=== PATIENT | male | born 1970 | race Caucasian/White ===

== ENCOUNTER 2023-07-14 14:28 | Outpatient (REF) | payer OTHER, SELFPAY ==
--- NOTE | 2023-07-14 14:39 | EMG_ITS ---
Chief complaint: Allodynia, pain and numbness in right hand particularly on right first to 4 digits. This started after an IV was inserted on right wrist last February. Recent hospitalization for cardiac surgery, February 2023. History of cervical surgery 4 years ago. Denies any current associated neck pain. Reason for referral: Evaluate for neuropathy Referred by: Dr. Lira Procedure done: RUE NCS/EMG Precautions and/or limitations: None The limb temperature was monitored continuously and remained between 32-36 degrees C during the performance of the NCS. Nerve Conduction Studies Anti Sensory Summary Table ?Stim Site NR Onset (ms) Norm Onset (ms) Peak (ms) Norm Peak (ms) O-P Amp (?V) Norm O-P Amp Site1 Site2 Delta-0 (ms) Dist (cm) Dereck (m/s) Norm Dereck (m/s) Right Median Anti Sensory (2nd Digit) Wrist ? 3.1 3.8 <3.6 2.0 >10 Wrist 2nd Digit 3.1 14.0 45 Right Radial Anti Sensory (Thumb) Forearm ? 1.5 2.0 <3.1 11.7 Forearm Thumb 1.5 0.0 Right Ulnar Anti Sensory (5th Digit) Wrist ? 2.5 3.1 <3.7 15.1 >15.0 Wrist 5th Digit 2.5 14.0 56 Motor Summary Table ?Stim Site NR Onset (ms) Norm Onset (ms) O-P Amp (mV) Norm O-P Amp iAmp (mV) Amp (1st) (%) Site1 Site2 Delta-0 (ms) Dist (cm) Dereck (m/s) Norm Dereck (m/s) Right Median Motor (Abd Poll Brev) Wrist ? 4.4 <3.9 11.5 >4.5 13.3 100.0 Elbow Wrist 4.4 20.5 47 >45 Elbow ? 8.8 11.3 13.4 98.3 Right Ulnar Motor (Abd Dig Minimi) Wrist ? 2.9 <3.0 9.6 >5 11.9 100.0 B Elbow Wrist 3.4 18.5 54 >45 B Elbow ? 6.3 9.0 11.1 93.8 A Elbow B Elbow 1.4 10.0 71 >45 A Elbow ? 7.7 8.7 10.9 90.6 EMG ?Side Muscle Nerve Root Ins Act Fibs Psw Amp Dur Poly Recrt Int Pat Comment Right 1stDorInt Ulnar C8-T1 Nml Nml Nml Nml Nml 0 Nml Complete Right FlexCarRad Median C6-7 Nml Nml Nml Nml Nml 0 Nml Complete Right Biceps Musculocut C5-6 Nml Nml Nml Nml Nml 0 Nml Complete Right Triceps Radial C6-7-8 Nml Nml Nml Nml Nml 0 Nml Complete Right Deltoid Axillary C5-6 Nml Nml Nml Nml Nml 0 Nml Complete Right Abd Poll Brev Median C8-T1 Nml Nml Nml Nml Nml 0 Nml Complete FINDINGS: Right median motor nerve showed prolonged distal latency, normal amplitude and normal conduction velocity. Right median sensory nerve showed prolonged peak latency and small amplitude. All other nerves tested were within normal. Concentric needle EMG was performed in selected muscles of the right upper extremity. Study did not reveal signs of electric abnormalities as shown in the table below. IMPRESSION: 1. This is an abnormal study. 2. There is electrodiagnostic evidence for right moderate-severe median neuropathy at the wrist, consistent with carpal tunnel syndrome. 3. There is no electrodiagnostic evidence for ulnar neuropathy, brachial plexopathy, or cervical radiculopathy. Thank you for your kind referral. Naila Ureña MD, DONI Board Certified, [place] [employer] and [employer] (ABPMR) Board Certified, [place] Board [employer] Electrodiagnostic Medicine (ABEM) CODIN [id number] MTDD
== END 2023-07-14 14:29 | disposition home or self-care (01) ==
LOC: HO.NEURO 14:28
PROVIDERS: PCP Internal Medicine; Visit Provider Orthopaedic Surgery
DX: S54.1 Injury of median nerve at forearm level (principal); G56.41 Causalgia of right upper limb
CPT/HCPCS: 95886; 95909

== ENCOUNTER → 2023-07-14 14:39 | Outpatient (BNV) | payer OTHER, SELFPAY | PROVIDERS: PCP Internal Medicine; Visit Provider Physical Medicine & Rehabilitation | DX: G56.11 Other lesions of median nerve, right upper limb (principal); G56.01 Carpal tunnel syndrome, right upper limb | CPT/HCPCS: 95886; 95909 ==

== ENCOUNTER 2024-09-07 10:56 | Emergency (ER) | payer OTHER, SELFPAY ==
--- NOTE | ~2024-09-07 | XR_ITS ---
EXAMINATION: XR HAND/WRIST, RIGHT CLINICAL INFORMATION: pointer and middle finger laceration. fracture? COMPARISON: None available. TECHNIQUE: PA, lateral, and oblique views of the right hand and wrist. FINDINGS: No acute cortical disruption or malalignment. No lytic or blastic lesions. No metallic or radiopaque foreign body. XR/XR hand wrist RT IMPRESSION: No acute fracture or dislocation. Electronically signed by: Nemesio Dean MD 09/07/2024 11:49 AM THADDEUS
[2024-09-07 10:58] VITALS: BP 161/87; PULSE 74; RESP 20; TEMP 36.7; O2SAT 98; BMI 34.9
--- NOTE | 2024-09-07 11:03 | ED_ITS ---
HPI - General Adult General Chief complaint: Wound/Laceration Stated complaint: R hand lac Time Seen by Provider: 09/07/24 11:40 Source: patient, RN notes reviewed and old records reviewed Mode of arrival: ambulatory Limitations: no limitations History of Present Illness ED Provider: Stacey HPI narrative: 53-year-old male with history of coronary artery disease status post bypass presents for evaluation of a right hand injury. 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 he reports his tetanus was updated 3 weeks ago he was on clopidogrel for the coronary artery disease but no anticoagulation Related Data Allergies Allergy/AdvReac Type Severity Reaction Status Date / Time azithromycin [From ZITHROMAX] Allergy Unknown RESP Verified 09/07/24 11:01 DISTRESS codeine [CODEINE] Allergy Unknown RESP Verified 09/07/24 11:01 DISTRESS diazepam [From VALIUM] Allergy Unknown SEVERE Verified 09/07/24 11:01 AGITATION bee pollen [bee stings] Allergy Anaphylaxis Verified 09/07/24 11:01 codeine Allergy Unknown Unknown Uncoded 09/07/24 11:01 Review of Systems Constitutional: Constitutional: Denies body ache(s), Denies chills and Denies fever(s) Cardiovascular: Cardiovascular: Denies chest pain Musculoskeletal: Musculoskeletal: Denies arthralgias and Denies joint swelling Integumentary/Breasts: Skin/Breast: Reports wounds PMFSH Social History Social History Advance Directives: No Advance Directives Information Provided: Yes Do you have a plan to hurt others: No Plan Physical Exam ED Vital Signs: Vital Signs - 24 hr 09/07/24 10:58 09/07/24 12:25 Temperature 98.0 F 97.5 F Pulse Rate 74 64 Respiratory Rate 20 16 Blood Pressure 161/87 H 146/88 H Pulse Oximetry 98 97 Oxygen Delivery Method Room Air Room Air BMI result Body Mass Index 34.9 Const General: healthy appearing, comfortable, no acute distress, alert and awake Nutritional Appearance: well nourished Orientation/consciousness: patient oriented x3 HENMT Head: Yes normocephalic and Yes atraumatic Resp Effort & Inspection: normal respiratory effort, able to speak in complete sentences and not labored Skin Other: patient has a 3 cm curvilinear laceration to the dorsal surface of the right 3rd finger in between the D IP and PIP joints. He has a proximally 1 cm laceration to the distal right 2nd finger on the dorsal surface. General skin exam: elasticity normal Neuro General: patient oriented x3 Cranial nerves: Yes Bilaterally intact EOM present Cognition (Neuro): normal cognition Extrem Other: Moving all extremities well without any obvious deformities Course Course Course Narrative: RME: 53 yold male presents to the ED for right pointer adn 3rd finger laceration caused by steel in garage. hand is wrapped. xray rodered Medications Administered Discontinued Medications Generic Name Dose Route Start Last Admin Trade Name Freq PRN Reason Stop Dose Admin Lidocaine HCl 10 ml 09/07/24 12:01 09/07/24 12:22 Lidocaine Hcl 1 % Mpf 5 Ml Vial INFILTRATI 09/07/24 12:02 10 ml ONCE ONE Administration Procedures Laceration Laceration 1: Site: hand Side (If applicable): right ( 3rd finger) Size (cm): 3 Description: linear and irregular Depth: simple, single layer Local Anesthetic: lidocaine 1% Amount of anesthesia used (mL): 4 Pre-repair: wound explored, irrigated extensively and deep structures intact Skin layer closed with: nylon Size (cm): 4-0 Number of sutures: 6 Technique: simple, interrupted Medical Decision Making Medical Decision Making MDM Narrative: 53-year-old male presents for evaluation of laceration to his right hand. He has wounds to the right 2nd and 3rd finger that require repair. X-ray was ordered which does not show any evidence of open fracture. There is no evidence of tendon injury on clinical exam. Patient's tetanus is up-to-date. We will clean and close the wounds, see procedure note. wound repair was performed by Alex Key patient requested the smaller wound on the index finger be closed with Dermabond adhesive Differential Diagnosis Differential Diagnoses: The differential diagnosis associated with the presentation includes laceration Skin tear Puncture wound Open fracture Independent Interpretation I performed an independent interpretation of an: Plain X-Ray ( no obvious fracture of the right hand or wrist) Discharge Plan Discharge Clinical Impression: Laceration Patient Disposition: Home, Self-Care Instructions: Finger Laceration (ED) Additional Instructions: you had 6 sutures placed today. These can be removed in 14 days keep the area clean and dry follow up with your primary doctor Print Language: Andorran
[2024-09-07] MEDS: Lidocaine HCl 1 % MPF 5 ML VIAL 10 ML INFILTRATI (12:22)
[2024-09-07 12:25] VITALS: BP 146/88; PULSE 64; RESP 16; TEMP 36.4; O2SAT 97
--- OUTSIDE RECORDS SUMMARY | 2024-09-08 14:43 | XMS_ITS | Continuity of Care Document ---
Author Organization [facility] Address [address] [place] [address] [place] [address]- Care Team Providers Care Naval Architect Name Role Phone Not on Staff, PCP Primary Care Physician Unavail able [facility]counter [facility] Date([facility]): 04/07/23 - 05/07/23 [facility] Card[facility] Surgery [address] [place] [id number] Attending Physician: AdmRamu paz Admitting Physician: Admtr, Ar8 Referring Physician: Admtr, Ar8 Allergies, Adverse Reactions, Alerts Substance Reaction Severity Status codeine wheezing Active Zithromax Wheezing swelling Active Valium violent Active Bee Stings Anaphylaxis Active Adhesive Bandage 1 Cardiac electrode si te Soft tissue swelling Plastic adhesive tape Active 1plastic tape Immunizations Given and Recorded Vaccine Date Status Refusal Reason Pneumococcal Vaccine (oldterm) 1 12/09/08 Given 1Result Comment: lot #[id number] exp date 14 mar 2010 Medications acetaminophen 325 mg oral tablet 650 mg, 2, tablet, By Mouth, Every 6 hours, Refills 0, Maintenance, 03/26/23 15:53:00 EDT, Partial fill upon patient request if the prescription is for a schedule II opioid drug. Start Date: 03/26/23 Status: Ordered amiodarone 200 mg oral tablet 200 mg, By Mouth, 2 times a day, # 60 tablet, Refills 0, Tot. Refills 0, Maintenance, 03/26/23 15:53:00 EDT, Route to Pharmacy Electronically, [facility], Partial fill upon patient request if the prescription is for a schedule II opioid... Start Date: 03/26/23 Status: Ordered aspirin 81 mg oral tablet, chewable 81 mg, 1, tablet, By Mouth, Daily, # 30 tablet, Refills 0, Maintenance, 03/02/23 8:09:00 EDT, Partial fill upon patient request if the prescription is for a schedule II opioid drug. Start Date: 03/02/23 Status: Ordered atorvastatin 80 mg oral tablet 1 tablet = 80 mg, By Mouth, Daily, Refill per PCP or Extrusion Line Operator, # 30 tablet, 0 Refills, Maintenance, 03/04/23 10:31:00 EDT, Tablet, [facility], Partial fill upon patient request if the prescription is for a schedule II opioid drug., 1... Start Date: 03/04/23 Status: Ordered Benadryl Extra Strength 2%-0.1% topical cream 1 application, Topically, 3 times a day, # 30 Gm, 1 Refills, Maintenance, 04/07/23 11:41:00 EDT, Cream, [facility]/pharmacy #[id number], Partial fill upon patient request if the prescription is for a schedule II opioid drug., 1 application Topically 3 times a day,... Start Date: 04/07/23 Status: Ordered clopidogrel 75 mg oral tablet 75 mg, 1, tablet, By Mouth, Daily, # 30 tablet, Refills 0, Tot. Refills 0, Maintenance, 03/26/23 15:53:00 EDT, Route to Pharmacy Electronically, [facility], Partial fill upon patient request if the prescription is for a schedule II opioi... Start Date: 03/26/23 Status: Ordered furosemide 20 mg oral tablet 20 mg, 1, tablet, By Mouth, Daily, # 3 tablet, Refills 0, Tot. Refills 0, Maintenance, 03/26/23 15:54:00 EDT, Route to Pharmacy Electronically, [facility], Partial fill upon patient request if the prescription is for a schedule II opioid... Start Date: 03/26/23 Stop Date: 03/29/23 Status: Ordered gabapentin 100 mg oral capsule 200 mg, 2, capsule, By Mouth, 3 times a day, # 180 capsule, Refills 0, Tot. Refills 0, Maintenance,04/22/23 16:38:00 EDT, [id number] Partial fill upon patient request if the prescription is for a schedule II... Start Date: 04/22/23 Status: Ordered labs labs, See Instructions, # 1 each, Refills 0, Tot. Refills 0, Maintenance, CBC and BMP, 03/26/23 16:13:00 EDT, Supply Start Date: 03/26/23 Status: Ordered metoprolol 25 mg oral tablet 25 mg, 1, tablet, By Mouth, 2 times a day, Refill per PCP or Extrusion Line Operator, # 60 tablet, Refills 0, Tot. Refills 0, Maintenance, 03/26/23 15:53:00 EDT, Route to Pharmacy Electronically, [facility], Partial fill upon patient request if the... Start Date: 03/26/23 Status: Ordered tamsulosin 0.4 mg oral capsule 0.4 mg, 1, capsule, By Mouth, Daily, # 90 capsule, Refills 0, Maintenance, 02/04/23 8:43:00 EDT, Partial fill upon patient request if the prescription is for a schedule II opioid drug. Start Date: 02/04/23 Status: Ordered Ventolin HFA 108 mcg/inh inhalation aerosol with adapter INHALE 2 PUFFS INTO THE LUNGS EVERY 4 HOURS NEEDED FOR COUGH OR WHEEZING. Start Date: 03/02/23 Status: Ordered Walker See Instructions, Maintenance, 03/26/23 16:04:00 EDT, Supply Start Date: 03/26/23 Status: Ordered Walker See Instructions, # 1 each, Maintenance, walker, 03/26/23 16:04:00 EDT, Supply Start Date: 03/26/23 Status: Ordered Problem List Condition Confirmation Course Effective Dates Status [facility] Informant Acquired deafness of left ear Confirmed Active Chest pain Confirmed Active DVT, lower extremity Confirmed Active GERD (gastroesophageal reflux disease) Confirmed Active History of CVA (cerebrovascular accident) without residual deficits Confirmed Active Hx of Lyme disease Confirmed Active Obese class I Confirmed Active Paresthesias Confirmed Active Tobacco dependence Confirmed Active Social History Social History Type Response Smoking Status 5-9 cigarettes (betw een 1/4 to 1/2 pack)/day in last 30 days; Other: 8-9; entered on: 08/08/20 Sex Patient Care team information Care Team Personnel Name: Fiona Sanchez RN Position: S RN Member Role: Primary Care Nurse Name: Ene Horan RN Position: [facility] Supv Member Role: Primary Care Nurse Name: Bienvenido Herrmann RN Position: [facility] RN Member Role: Primary Care Nurse Name: Louisa Hyman RN Position: [facility] RN Supv Member Role: Primary Care Nurse Name: Cynthia Corbin RN Position: [facility] RN Member Role: Primary Care Nurse Name: Yoshi Bernardo RN Position: [facility] SN RN Member Role: Primary Care Nurse Name: Not on Staff, PCP Position: [facility] Physician (General Medicine) Member Role: PCP Name: Alon Castillo RN Position: [facility] RN Member Role: Primary Care Nurse Name: Mercedes Jasmine RN Position: [facility] RN Member Role: Primary Care Nurse Name: Charlene Davenport RN Position: [facility] RN Member Role: Primary Care Nurse Name: Angela Arreguin RN Position: [facility] RN Member Role: Primary Care Nurse Name: Irlanda Hernandez RN Position: [facility] RN Member Role: Primary Care Nurse Care Team Related Persons Name: SAM AIKEN Address: [address] [place] [address] Name: SAM KANG Address: [address] [place] [address]
--- OUTSIDE RECORDS SUMMARY | 2024-09-08 14:43 | XMS_ITS | Continuity of Care Document ---
Author Organization [facility] Address [address] [place] [address] Yvonne guti[address] [address]- Care Team Providers Care Psychology Associate Name Role Phone Not on Staff, PCP Primary Care Physician Unavail able [facility] Date[facility]s): 05/03/23 - 06/02/23 [facility] Cardiac Surgery [address] [place] [id number] Allergies, Adverse Reactions, Alerts Substance Reaction Severity Status codeine wheezing Active Valium violent Active Adhesive Bandage 1 Cardiac electrode si te Soft tissue swelling Plastic adhesive tape Active Bee Stings Anaphylaxis Active Zithromax Wheezing swelling Active 1plastic tape Immunizations Given and Recorded [...] 03/26/23 15:53:00 EDT, Route to Pharmacy Electronically, [facility], Partial fill upon patient request [...] By Mouth, Daily, Refill per PCP or Care Team Assistant, # 30 tablet, 0 Refills, Maintenance, 03/04/23 10:31:00 EDT, Tablet, [facility], Partial fill upon patient request if the prescription is for a schedule II opioid drug., 1... Start Date: 03/04/23 Status: Ordered Benadryl Extra Strength 2%-0.1% topical cream 1 application, Topically, 3 times a day, # 30 Gm, 1 Refills, Maintenance, 04/07/23 11:41:00 EDT, Cream, [facility]/pharmacy #[id number], Partial fill upon patient request if the prescription is for a schedule II opioid drug., 1 application Topically 3 times a day,... Start Date: 04/07/23 Status: Ordered buPROPion 150 mg/12 hours (SR) oral tablet, extended release 1 tablet = 150 mg, By Mouth, 2 times a day, for smoking cessation. Take only once per day for first3 days. Quit on day 8. Use at least 3 months. Use with nicotine inhaler., # 60 tablet, 5 Refills, Maintenance, 05/21/23 14:22:00 EDT, ER Tablet, [facility]/... Start Date: 05/21/23 Status: Ordered clopidogrel 75 mg oral tablet 75 mg, 1, tablet, By Mouth, Daily, # 30 tablet, Refills 0, Tot. Refills 0, Maintenance, 03/26/23 15:53:00 EDT, Route to Pharmacy Electronically, [facility], Partial fill upon patient request if the prescription is for a schedule II opioi... Start Date: 03/26/23 Status: Ordered furosemide 20 mg oral tablet 20 mg, 1, tablet, By Mouth, Daily, # 3 tablet, Refills 0, Tot. Refills 0, Maintenance, 03/26/23 15:54:00 EDT, Route to Pharmacy Electronically, [facility], Partial fill upon patient request if the prescription is for a schedule II opioid... Start Date: 03/26/23 Stop Date: 03/29/23 Status: Ordered gabapentin 100 mg oral capsule 200 mg, 2, capsule, By Mouth, 3 times a day, # 180 capsule, Refills 0, Tot. Refills 0, Maintenance,04/22/23 16:38:00 EDT, Route to Pharmacy Electronically, [facility]/pharmacy #[id number], Partial fill upon patient request if the prescription is for a schedule II... Start Date: 04/22/23 Status: Ordered labs labs, See Instructions, # 1 each, Refills 0, Tot. Refills 0, Maintenance, CBC and BMP, 03/26/23 16:13:00 EDT, Supply Start Date: 03/26/23 Status: Ordered metoprolol 25 mg oral tablet 25 mg, 1, tablet, By Mouth, 2 times a day, Refill per PCP or Care Team Assistant, # 60 tablet, Refills 0, Tot. Refills 0, Maintenance, 03/26/23 15:53:00 EDT, Route to Pharmacy Electronically, [facility], Partial fill upon patient request if the... Start Date: 03/26/23 Status: Ordered nicotine 10 mg inhalation device See Instructions, use in addition to bupropion, # 168 pack/packet, 3 Refills, Maintenance, 05/21/2314:23:00 EDT, [facility]/pharmacy #[id number], Partial fill upon patient request if the prescription is for a schedule II opioid drug., use in addition to bupropion... Start Date: 05/21/23 Status: Ordered tamsulosin 0.4 mg oral capsule [...] List Condition Confirmation Course Effective Dates Status [facility] Informant Acquired deafness of left [...] Team Personnel Name: Fiona Sanchez RN Position: [facility] RN Member Role: Primary Care Nurse Name: Ene Horan RN Position: [facility] RN Supv Member Role: Primary Care Nurse Name: Bienvenido Herrmann RN Position: [facility] RN Member Role: Primary Care Nurse Name: Louisa Hmyan RN Position: [facility] RN Supv Member Role: Primary Care Nurse Name: Yoshi Bernardo RN Position: [facility] SN RN Member Role: Primary Care Nurse Name: Not on Staff, PCP Position: [facility] Physician (General Medicine) Member Role: PCP Name: Alon Castillo RN Position: [facility] RN Member Role: Primary Care Nurse Name: Mercedes Jasmine RN Position: [facility] RN Member Role: Primary Care Nurse Name: Charlene Davenport RN Position: [facility] RN Member Role: Primary Care Nurse Name: Angela Arreguin RN Position: [facility] RN Member Role: Primary Care Nurse Name: Irlanda Hernandez RN Position: [facility] RN Member Role: Primary Care Nurse Care Team Related Persons Name: SAM AIKEN Address: [address] [place] [address] Name: SAM KANG Address: [address] [place] [address]
--- OUTSIDE RECORDS SUMMARY | 2024-09-08 14:43 | XMS_ITS | Continuity of Care Document ---
Author Organization [facility] Address [address] [place] [address] Yvonne gutiér[place] [address]- Care Team Providers Care Payroll Representative Name Role Phone Not on Staff, PCP Primary Care Physician Unavail able [facility]counter [facility] Date(s): 03/03/23 - 04/02/23 [facility] [address] [place] [id number] Allergies, Adverse Reactions, Alerts Substance Reaction Severity Status codeine wheezing Active Zithromax Wheezing swelling Active Valium violent Active Adhesive Bandage 1 Cardiac electrode si te Soft tissue swelling Plastic adhesive tape Active Bee Stings Anaphylaxis Active 1plastic tape Immunizations Given and Recorded [...] 03/26/23 15:53:00 EDT, Route to Pharmacy Electronically, [facility], Partial fill upon patient request [...] By Mouth, Daily, Refill per PCP or Asian Studies Professor, # 30 tablet, 0 Refills, Maintenance, 03/04/23 10:31:00 EDT, Tablet, [facility], Partial fill upon patient request if the prescription is for a schedule II opioid drug., 1... Start Date: 03/04/23 Status: Ordered clopidogrel 75 mg oral tablet 75 mg, 1, tablet, By Mouth, Daily, # 30 tablet, Refills 0, Tot. Refills 0, Maintenance, 03/26/23 15:53:00 EDT, Route to Pharmacy Electronically, [facility], Partial fill upon patient request if the prescription is for a schedule II opioi... Start Date: 03/26/23 Status: Ordered furosemide 20 mg oral tablet 20 mg, 1, tablet, By Mouth, Daily, # 3 tablet, Refills 0, Tot. Refills 0, Maintenance, 03/26/23 15:54:00 EDT, Route to Pharmacy Electronically, [facility], Partial fill upon patient request if the prescription is for a schedule II opioid... Start Date: 03/26/23 Stop Date: 03/29/23 Status: Ordered hydrOXYzine hydrochloride 10 mg oral tablet 2 tablet = 20 mg, By Mouth, 2 times a day, PRN Anxiety, # 14 tablet, 0 Refills, Acute 04/09/23 21:00:00 EDT, 03/26/23 15:55:00 EDT, Tablet, [facility], Partial fill upon patient requestif the prescription is for a schedule II opioid [place]... Start Date: 03/26/23 Stop Date: 04/09/23 Status: Ordered labs labs, See Instructions, # 1 each, Refills 0, Tot. Refills 0, Maintenance, CBC and BMP, 03/26/23 16:13:00 EDT, Supply Start Date: 03/26/23 Status: Ordered metoprolol 25 mg oral tablet 25 mg, 1, tablet, By Mouth, 2 times a day, Refill per PCP or Asian Studies Professor, # 60 tablet, Refills 0, Tot. Refills 0, Maintenance, 03/26/23 15:53:00 EDT, Route to Pharmacy Electronically, [facility], Partial fill upon patient request if the... Start Date: 03/26/23 Status: Ordered MiraLax oral powder for reconstitution = 17 Gm, By Mouth, Daily, PRN Constipation, dissolve in water before taking, # 255 Gm, 0 Refills, Acute 04/04/23 22:22:00 EDT, 03/04/23 10:31:00 EDT, REC Powder, [facility], Partial fill upon patient request if the prescription is for a... Start Date: 03/04/23 Stop Date: 04/04/23 Status: Ordered tamsulosin 0.4 mg oral capsule [...] RN Member Role: Primary Care Nurse Name: Marline CABRERA, Ene Position: [facility] Supv Member Role: Primary Care Nurse Name: Bienvenido Herrmann RN Position: S RN Member Role: Primary Care Nurse Name: Louisa Hyman RN Position: [facility] RN Supv Member Role: Primary Care Nurse Name: Cynthia Corbin RN Position: [facility] RN Member Role: Primary Care Nurse Name: Yoshi Bernardo RN Position: [facility] SN RN Member Role: Primary Care Nurse Name: Not on Staff, PCP Position: [facility] Physician (General Medicine) Member Role: PCP Name: Alon Castillo RN Position: [facility] RN Member Role: Primary Care Nurse Name: Mercedes Jasmine RN Position: [facility] RN Member Role: Primary Care Nurse Name: Charlene Davenport RN Position: [facility] RN Member Role: Primary Care Nurse Name: Angela Arreguin RN Position: [facility] RN Member Role: Primary Care Nurse Name: Irlanda Hernandez RN Position: [facility] RN Member Role: Primary Care Nurse Name: Radha Kessler Position: [facility] RN Member Role: Primary Care Nurse Care Team Related Persons Name: SAM AIKEN Address: [address] [place] [address] Name: SAM KANG Address: [address] [place] [address]
--- OUTSIDE RECORDS SUMMARY | 2024-09-08 14:43 | XMS_ITS | Continuity of Care Document ---
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 Name Role Phone Not on Staff, PCP Primary Care Physician Unavail able [facility] Date(s): 04/21/23 - 05/21/23 [facility] [address] [place] [id number] Allergies, Adverse Reactions, Alerts Substance [...] 03/26/23 15:53:00 EDT, Route to Pharmacy Electronically, [facility], Partial fill upon [...] By Mouth, Daily, Refill per PCP or Rotary Lithographic Press Operator, # 30 tablet, 0 Refills, Maintenance, 03/04/23 10:31:00 EDT, Tablet, [facility], Partial fill upon patient request if the prescription is for a schedule II opioid drug., 1... Start Date: 03/04/23 Status: Ordered Benadryl Extra Strength 2%-0.1% topical cream 1 application, Topically, 3 times a day, # 30 Gm, 1 Refills, Maintenance, 04/07/23 11:41:00 EDT, Cream, [id number], Partial fill upon patient request if [...] Refills, Maintenance, 05/21/23 14:22:00 EDT, ER Tablet, [facility]/... Start Date: 05/21/23 Status: Ordered clopidogrel 75 mg oral tablet 75 mg, 1, tablet, By Mouth, Daily, # 30 tablet, Refills 0, Tot. Refills 0, Maintenance, 03/26/23 15:53:00 EDT, Route to Pharmacy Electronically, [facility], Partial fill upon patient request if the prescription is for a schedule II opioi... Start Date: 03/26/23 Status: Ordered furosemide 20 mg oral tablet 20 mg, 1, tablet, By Mouth, Daily, # 3 tablet, Refills 0, Tot. Refills 0, Maintenance, 03/26/23 15:54:00 EDT, Route to Pharmacy Electronically, [facility], Partial fill upon patient request if the prescription is for a schedule II opioid... Start Date: 03/26/23 Stop Date: 03/29/23 Status: Ordered gabapentin 100 mg oral capsule 200 mg, 2, capsule, By Mouth, 3 times a day, # 180 capsule, Refills 0, Tot. Refills 0, Maintenance,04/22/23 16:38:00 EDT, Route to Pharmacy Electronically, [id number], Partial fill upon patient request if the prescription is for a schedule II... Start Date: 04/22/23 Status: Ordered labs labs, See Instructions, # 1 each, Refills 0, Tot. Refills 0, Maintenance, CBC and BMP, 03/26/23 16:13:00 EDT, Supply Start Date: 03/26/23 Status: Ordered metoprolol 25 mg oral tablet 25 mg, 1, tablet, By Mouth, 2 times a day, Refill per PCP or Rotary Lithographic Press Operator, # 60 tablet, Refills 0, Tot. Refills 0, Maintenance, 03/26/23 15:53:00 EDT, Route to Pharmacy Electronically, [facility], Partial fill upon patient request if the... Start Date: 03/26/23 Status: Ordered nicotine 10 mg inhalation device See Instructions, use in addition to bupropion, # 168 pack/packet, 3 Refills, Maintenance, 05/21/2314:23:00 EDT, [facility][id number], Partial fill upon patient request if [...] List Condition Confirmation Course Effective Dates Status [facility] Informant Acquired deafness of left [...] Team Personnel Name: Fiona Sanchez RN Position: [facility] RN Member Role: Primary Care Nurse Name: Ene Horan RN Position: [facility] RN Supv Member Role: Primary Care Nurse Name: Bienvenido Herrmann RN Position: [facility] RN Member Role: Primary Care Nurse Name: Louisa Hyman RN Position: [facility] RN Supv Member Role: Primary Care Nurse Name: Yoshi Bernardo RN Position: [facility] SN RN Member Role: Primary Care Nurse Name: Not on Staff, PCP Position: [facility] Physician (General Medicine) Member Role: PCP Name: Alon Castillo RN Position: [facility] RN Member Role: Primary Care Nurse Name: Mercedes Jasmine RN Position: [facility] RN Member Role: Primary Care Nurse Name: Charlene Davenport RN Position: [facility] RN Member Role: Primary Care Nurse Name: Angela Arreguin RN Position: [facility] RN Member Role: Primary Care Nurse Name: Irlanda Hernandez RN Position: [facility] RN Member Role: Primary Care Nurse Care Team Related Persons Name: SAM AIKEN Address: [address] [place] [address] Name: SAM KANG Address: [address] [place] [address]
--- OUTSIDE RECORDS SUMMARY | 2024-09-08 14:43 | XMS_ITS | Continuity of Care Document ---
Author Organization [facility] ter Address [address] [place] [address]- Care Team Providers Care Video Game Technician Name Role Phone Salome Parker MD Primary Care Physician [phone] Encounter [facility] Date(s): 11/29/19 - 11/30/[address] [address]- [facility] Encounter Diagnosis Musculoskeletal chest pain(Discharge Diagnosis) - 11/30/19 Discharge Disposition: A-D/C Home Attending Physician: Juan Benjamin MD Admitting Physician: Yoli Kovacs MD Referring Physician: Not on Staff, Referring MD Allergies, Adverse Reactions, Alerts Substance Reaction Severity Status codeine wheezing Active Zithromax swelling Active Valium violent Active Bee Stings Active Immunizations Given and Recorded Vaccine Date Status Refusal Reason Pneumococcal Vaccine (oldterm) 1 12/09/08 Given 1Result Comment: lot #[id number] exp date 14 mar 2010 Medications No Known Medications Problem List Condition Effective Dates Status Health Status Inform ant Paresthesias(Confirmed) Active Diagnosis Diagnosis Type Effective Dates Health Status Clinical Service Informant Musculoskeletal chest pain Discharge Diagnosis 11/30/19 Non-Specified Results Radiology Reports * Exam Date Time Procedure Performing Provider Status 11/29/19 11:39 AM Chest 2 Views Frontal and Lat Papadak is , Neelam; Auth (Verified) Notes: (Chest 2 Views Frontal and Lat) Reason For Exam: Angina RESULT: Chest 2 Views Frontal and Lat Chest 2 Views Frontal and Lat INDICATION: Substernal chest pain and fevers. COMPARISON: Multiple priors, most recent 08/24/2011. FINDINGS: LINES AND TUBES: Right chest Port-A-Cath with tip in the mid SVC. LUNGS AND PLEURA: Clear lungs. Normal pulmonary vascularity. No pleural effusion. No pneumothorax. HEART, MEDIASTINUM AND MUNA: Heart is normal in size. Normal mediastinal and hilar contour. BONES AND SOFT TISSUES: No acute osseous abnormality. Mild degenerative changes of the visualized spine. ACDF of the lower cervical spine. IMPRESSION: No radiographic evidence of acute cardiopulmonary abnormality. I have personally reviewed the images and I agree with this report. WSN: [id number] Dictated By: Christian Davis MD Dictated Date/Time: 11/29/19 11:58 a Reviewed By: Alex Singh MD Signed By: Alex Singh MD Signed Date/Time: 11/29/19 12:03 pm Transcribed By: KRIS Transcribed Date/Time: 11/29/19 11:48 am Vital Signs Most recent to oldest [Reference Range]: 1 2 3 Height 172.2 cm (11/30/19 3:10 AM) 172.2 cm (11/29/19 11:34 PM) 172.2 cm (11/29/19 8:46 PM) Weight 94.8 kg (11/29/19 8:46 PM) 94.8 kg (11/29/19 8:08 PM) Oxygen Saturation [94-100 %] 95 % (11/30/19 3:10 AM) 97 % (11/29/19 11:34 PM) 96 % (11/29/19 8:46 PM) Pulse Rate [55-90 bpm] 76 bpm (11/30/19 3:10 AM) 70 bpm (11/29/19 11:34 PM) 60 bpm (11/29/19 8:46 PM) Body Mass Index [18.5-24.99] 31.97 *>HHI* (11/29/19 8:08 PM) Blood Pressure [90-138/55-84 mm Hg] 135/69mm Hg (11/30/19 3:10 AM) 120/67mm Hg (11/29/19 11:34 PM) 126/86mm Hg (11/29/19 8:46 PM) Respiratory Rate [16-30 br/min] 18 br/min (11/30/19 3:10 AM) 18 br/min (11/29/19 11:34 PM) 20 br/min (11/29/19 9:46 PM) Temperature [96.8-100.4 DegF] 97.9 DegF (11/30/19 3:10 AM) 98 DegF (11/29/19 11:34 PM) 97.5 DegF (11/29/19 8:46 PM) Mode of Delivery (Oxygen) Room air (11/30/19 3:10 AM) Room air (11/29/19 11:34 PM) Room air (11/29/19 8:46 PM) Blood pressure sites Arm, left (11/30/19 3:10 AM) Arm, left (11/29/19 11:34 PM) Arm, right (11/29/19 8:46 PM) Temperature Route Oral (11/30/19 3:10 AM) Oral (11/29/19 11:34 PM) Oral (11/29/19 8:46 PM) Dry Weight 94.8 kg (11/29/19 8:08 PM) Weight Obtained Via Bed scale (11/29/19 8:46 PM)
--- OUTSIDE RECORDS SUMMARY | 2024-09-08 14:43 | XMS_ITS | Continuity of Care Document ---
Author Organization [facility] ter Address [address] [place] [address]- Care Team Providers Care Tableman Name Role Phone Salome Parker MD Primary Care Physician [phone] Encounter [facility] Date(s): 08/07/20 - 08/08/[address] [address]- [facility] Discharge Disposition: A-D/C Home Attending Physician: Brit Thomas MD Admitting Physician: Trinidad Mccain DO Referring Physician: Not on Staff, Referring MD Allergies, Adverse Reactions, Alerts Substance Reaction Severity Status codeine wheezing Active Zithromax swelling Active Valium violent Active Bee Stings Active Immunizations Given and Recorded Vaccine Date Status Refusal Reason Pneumococcal Vaccine (oldterm) 1 12/09/08 Given 1Result Comment: lot #[id number] exp date 14 mar 2010 Medications EPINEPHrine 0.3 mg injectable solution 0 Refills, Maintenance, 08/07/20 1:15:00 EDT Start Date: 08/07/20 Status: Ordered nicotine 14 mg/24 hr transdermal film, extended release 1 patch, Topically, Daily, for 14 days, # 14 patch, 0 Refills, Acute 08/22/20 15:23:00 EST, 08/08/20 15:23:00 EDT, Patch, [id number], 1 patch Topically Daily,x14 days, 172.72, cm, 08/08/20 11:13:00 EDT, Height, 95.5, kg, 08/08/20 6:13:00 EDT,... Start Date: 08/08/20 Stop Date: 08/22/20 Status: Ordered omeprazole 40 mg oral enteric coated capsule 1 capsule = 40 mg, By Mouth, Daily, # 90 capsule, 0 Refills, Maintenance, 08/07/20 1:15:00 EDT, EC Capsule Start Date: 08/07/20 Status: Ordered SUMAtriptan 100 mg oral tablet 1 tablet = 100 mg, By Mouth, Daily, PRN for migraine headache, may repeat dose after 2 hours up to a maximum of 2, # 18 tablet, 0 Refills, Maintenance, 08/07/20 1:15:00 EDT, Tablet Start Date: 08/07/20 Status: Ordered Problem List Condition Effective Dates Status Health Status Inform ant Chest pain(Confirmed) Active GERD (gastroesophageal reflu x disease)(Confirmed) Active Paresthesias(Confirmed) Active Tobacco dependence(Confirmed) Active Vital Signs Most recent to oldest [Reference Range]: 1 2 3 Height 172.72 cm (08/08/20 11:13 AM) 172.72 cm (08/08/20 7:41 AM) 172.72 cm (08/07/20 8:40 PM) Weight 95.5 kg (08/07/20 8:40 PM) Oxygen Saturation [94-100 %] 100 % (08/08/20 11:13 AM) 96 % (08/08/20 7:41 AM) 95 % (08/08/20 5:12 AM) Pulse Rate [55-90 bpm] 70 bpm (08/08/20 11:13 AM) 69 bpm (08/08/20 7:41 AM) 78 bpm (08/08/20 5:12 AM) Body Mass Index [18.5-24.99] 32.01 *>HHI* (08/07/20 8:40 PM) Blood Pressure [90-138/55-84 mm Hg] 135/82mm Hg (08/08/20 11:13 AM) 145/89mm Hg *H* (08/08/20 7:41 AM) 138/78mm Hg (08/08/20 5:12 AM) Respiratory Rate [16-30 br/min] 19 br/min (08/08/20 11:13 AM) 17 br/min (08/08/20 10:21 AM) 17 br/min (08/08/20 9:07 AM) Temperature [96.8-100.4 DegF] 98.0 DegF (08/08/20 11:13 AM) 97.7 DegF (08/08/20 7:41 AM) 98 DegF (08/08/20 5:12 AM) Mode of Delivery (Oxygen) Room air (08/08/20 11:13 AM) Room air (08/08/20 7:41 AM) Room air (08/08/20 5:12 AM) Blood pressure sites Arm, right (08/08/20 11:13 AM) Arm, left (08/08/20 7:41 AM) Arm, left (08/08/20 5:12 AM) Temperature Route Oral (08/08/20 11:13 AM) Oral (08/08/20 7:41 AM) Oral (08/08/20 5:12 AM) Dry Weight 95.5 kg (08/07/20 8:40 PM) Weight Obtained Via Bed scale (08/07/20 8:40 PM) Dry Weight Obtained Via Bed scale (08/07/20 8:40 PM) Social History Social History Type Response Smoking Status 5-9 cigarettes (betw een 1/4 to 1/2 pack)/day in last 30 days; Other: 8-9; entered on: 08/08/20 Sex
--- OUTSIDE RECORDS SUMMARY | 2024-09-08 14:43 | XMS_ITS | Continuity of Care Document ---
Author Organization [facility] ter Address [address] [place] [id number]- Care Team Providers Care Trashman Name Role Phone Salome Parker MD Primary Care Physician [place] [facility] [place]/23/21 - 04/23/[address] [address]- Discharge Disposition: A-D/C Walkout Attending Physician: Nelson Sykes MD Admitting Physician: Nelson Sykes MD Referring Physician: Not on Staff, Referring MD Allergies, Adverse Reactions, Alerts Substance Reaction Severity Status codeine wheezing Active Zithromax swelling Active Valium violent Active Adhesive Bandage 1 Active Bee Stings Active 1plastic tape Immunizations Given and Recorded Vaccine Date Status Refusal Reason Pneumococcal Vaccine (oldterm) 1 12/09/08 Given 1Result Comment: lot #[id number] exp date 14 mar 2010 Medications EPINEPHrine 0.3 mg injectable solution 0 Refills, Maintenance, 08/07/20 1:15:00 EDT Start Date: 08/07/20 Status: Ordered Keflex monohydrate 500 mg oral capsule 1 capsule = 500 mg, By Mouth, Every 12 hours, # 10 capsule, 0 Refills, Maintenance, 04/10/21 14:04:00 EDT, Capsule, [id number], Partial fill upon patient request if the prescription is for a schedule II opioid drug., 172, cm, 04/01/21 11:19:00... Start Date: 04/10/21 Stop Date: 04/15/21 Status: Ordered naproxen 500 mg oral tablet See Instructions, TAKE 1 TABLET BY MOUTH TWICE A DAY WITH FOOD, # 60 tablet, 0 Refills, Acute, [id number], 172, cm, 04/01/21 11:19:00 EDT, Height, 100, kg, 03/04/21 16:46:00 EDT, Dry Weight Start Date: 04/09/21 Status: Ordered naproxen 500 mg oral tablet 1 tablet = 500 mg, By Mouth, 2 times a day, with food, # 60 tablet, 0 Refills, Maintenance, 03/18/21 9:19:00 EDT, Tablet, [id number], Partial fill upon patient request if the prescription is for a schedule II opioid drug., 172, cm, 03/18/21 8:... Start Date: 03/18/21 Status: Ordered SUMAtriptan 100 mg oral tablet 1 tablet = 100 mg, By Mouth, Daily, PRN for migraine headache, may repeat dose after 2 hours up to a maximum of 2, # 18 tablet, 0 Refills, Maintenance, 08/07/20 1:15:00 EDT, Tablet Start Date: 08/07/20 Status: Ordered Problem List Condition Effective Dates Status Health Status Inform ant Acquired deafness of left ear(Confirmed) Active Chest pain(Confirmed) Active DVT, lower extremity(Confirmed) Active GERD (gastroesophageal reflu x disease)(Confirmed) Active History of CVA (cerebrovascu lar accident) without residual deficits(Confirmed) Active Hx of Lyme disease(Confirmed) Active Paresthesias(Confirmed) Active Tobacco dependence(Confirmed) Active Vital Signs Most recent to oldest [Reference Range]: 1 2 Weight 99.3 kg (04/23/21 3:30 PM) Oxygen Saturation [94-100 %] 96 % (04/23/21 3:30 PM) 97 % (04/23/21 3:27 PM) Pulse Rate [55-90 bpm] 89 bpm (04/23/21 3:30 PM) 101 bpm *H* (04/23/21 3:27 PM) Blood Pressure [90-138/55-84 mm Hg] 154/ 90mm Hg *H* (04/23/21 3:30 PM) Respiratory Rate [16-30 br/min] 16 br/mi n (04/23/21 3:30 PM) Temperature [96.8-100.4 DegF] 98.8 DegF (04/23/21 3:30 PM) Mode of Delivery (Oxygen) Room air (04/23/21 3:30 PM) Room air (04/23/21 3:27 PM) Blood pressure sites Arm, right (04/23/21 3:30 PM) Temperature Route Oral (04/23/21 3:30 PM) Dry Weight 99.3 kg (04/23/21 3:30 PM) Weight Obtained Via Standing scale (04/23/21 3:30 PM) Social History Social History Type Response Smoking Status 5-9 cigarettes (betw een 1/4 to 1/2 pack)/day in last 30 days; Other: 8-9; entered on: 08/08/20 Sex
--- OUTSIDE RECORDS SUMMARY | 2024-09-08 14:43 | XMS_ITS | Continuity of Care Document ---
Author Organization [facility], [place] [address] Address [address] [place] [id number]- Care Team Providers Care Ged Teacher Name Role Phone Not on Staff, PCP Primary Care Physician Unavail able [place] [facility] [place] - 03/04/[address] [address]- Discharge Disposition: A-D/C Home Attending Physician: Bowen Mott MD Admitting Physician: Heriberto Lyman MD Referring Physician: Yoshi Marques MD Allergies, Adverse Reactions, Alerts Substance Reaction Severity Status codeine wheezing Active Bee Stings Active Adhesive Bandage 1 Active Zithromax swelling Active Valium violent Active 1plastic tape Immunizations Given and Recorded Vaccine Date Status Refusal Reason Pneumococcal Vaccine (oldterm) 1 12/09/08 Given 1Result Comment: lot #[id number] exp date 14 mar 2010 Medications aspirin 81 mg oral tablet, chewable 81 mg, 1, tablet, By Mouth, Daily, # 30 tablet, Refills 0, Maintenance, 03/02/23 8:09:00 EDT, Partial fill upon patient request if the prescription is for a schedule II opioid drug. Start Date: 03/02/23 Status: Ordered atorvastatin 80 mg oral tablet 1 tablet = 80 mg, By Mouth, Daily, Refill per PCP or Laborer/Grade Check, # 30 tablet, 0 Refills, Maintenance, 03/04/23 10:31:00 EDT, Tablet, [facility], Partial fill upon patient request if the prescription is for a schedule II opioid drug., 1... Start Date: 03/04/23 Status: Ordered EPINEPHrine 0.3 mg injectable solution 0 Refills, Maintenance, 08/07/20 1:15:00 EDT Start Date: 08/07/20 Status: Ordered losartan 50 mg oral tablet 50 mg, 1, tablet, By Mouth, Daily, # 90 tablet, Refills 0, Maintenance, 02/04/23 8:43:00 EDT, Partial fill upon patient request if the prescription is for a schedule II opioid drug. Start Date: 02/04/23 Status: Ordered losartan 50 mg oral tablet 50 mg, Tablet, By Mouth, 03/04/23 9:00:00 EDT Start Date: 03/04/23 Stop Date: 03/04/23 Status: Completed metoprolol 25 mg oral tablet 25 mg, 1, tablet, By Mouth, 2 times a day, Refill per PCP or Laborer/Grade Check, # 60 tablet, Refills 0, Tot. Refills 0, Maintenance, 03/04/23 10:31:00 EDT, Route to Pharmacy Electronically, [facility], Partial fill upon patient request if the... Start Date: 03/04/23 Status: Ordered metoprolol 25 mg oral tablet 25 mg, Tablet, By Mouth, 03/04/23 9:00:00 EDT Start Date: 03/04/23 Stop Date: 03/04/23 Status: Completed MiraLax oral powder for reconstitution = 17 Gm, By Mouth, Daily, PRN Constipation, dissolve in water before taking, # 255 Gm, 0 Refills, Acute 04/04/23 22:22:00 EDT, 03/04/23 10:31:00 EDT, REC Powder, [facility], Partial fill upon patient request if the prescription is for a... Start Date: 03/04/23 Stop Date: 04/04/23 Status: Ordered nitroglycerin 0.4 mg sublingual tablet DISSOLVE 1 TABLET UNDER THE TONGUE EVERY 5 MINUTES NEEDED FOR CHEST PAIN Start Date: 03/02/23 Status: Ordered tamsulosin 0.4 mg oral capsule [...] OR WHEEZING. Start Date: 03/02/23 Status: Ordered Problem List Condition Confirmation Course [...] Paresthesias Confirmed Active Tobacco dependence Confirmed Active Results Radiology Reports * Exam Date Time Procedure Performing Provider Status 03/03/23 10:[address] Chest W/O Contrast Zaire Phillips; Auth (Verified) Notes: (CT Chest W/O Contrast) Reason For Exam: Aneurysm RESULT: CT Chest W/O Contrast CT Chest W/O Contrast INDICATION: Reason: Aneurysm; Clinical Question(s): Aneurysm; preoperative evaluation prior to CABG. TECHNIQUE: EKG gated helical CT scan of the chest without IV contrast, formatted in 3 planes. Weight-based protocol was performed using automatic exposure control. CTDIvol Body: 32.70 mGy, DLP Body: 1200 mGy*cm. COMPARISON: CTA chest dated 11/27/2010. FINDINGS: Materials Management Manager view findings, lines and tubes: None. Trachea and airways: Patent without evidence of tracheal or endobronchial lesion. Lungs and pleura: There are two 3 mm nodules in the left upper lobe and right lower lobe (images 17and 60 of series 205). There are a few scattered smaller nodules measuring 2 mm or less. No effusion or pneumothorax. Mediastinum and jocelyn: No mass or hematoma. No mediastinal or hilar lymphadenopathy. No esophageal abnormality. Enlarged thyroid gland contains nodules measuring up to 2.3 cm in right lower pole. Inferior aspect of the thyroid extends to the thoracic inlet. Heart: Heart is normal in size. No pericardial effusion. Severe coronary artery calcification. Aorta: No aortic aneurysm. Ascending aorta measures 3.5 x 3.5 cm. No significant atherosclerotic calcifications in the aorta. Pulmonary arteries: Normal caliber. Chest wall soft tissues: No acute abnormality. Diaphragm: Intact. Upper abdomen: No significant abnormality. Bones: No acute abnormality. Lower cervical spine fusion hardware partially imaged. IMPRESSION: 1. No aortic aneurysm or significant atherosclerotic wall calcifications. 2. Severe coronary calcifications. 3. Enlarged thyroid gland and nodules measuring up to 2.3 cm should be further evaluated with nonemergent ultrasound per ACR guidelines. 4. Lung nodules measuring up to 3 mm. If low risk for malignancy, no routine follow-up. If high risk, optional CT at 12 months. If unchanged, no further follow-up needed per Guidelines for Managementof Incidental Pulmonary Nodules Detected on CT Images: From the Fleischner Society 2017. An actionable message (Yellow) has been communicated via the [employer] system on 03/03/2023 11:02 PM, Message ID [id number]. WSN: [id number] Ordering Physician: Kwame Langley Dictated By: Everardo Sanchez MD Dictated Date/Time: 03/03/23 11:02 p Reviewed By: Everardo Sanchez MD Signed By: Everardo Sanchez MD Signed Date/Time: 03/03/23 11:02 pm Transcribed By: KRIS Transcribed Date/Time: 03/03/23 10:54 pm * Exam Date Time Procedure Performing Provider Status 03/03/23 4:19 PM Chest 2 Views Frontal and Lat Ochoa Loredo; Auth (Verified) Notes: (Chest 2 Views Frontal and Lat) Reason For Exam: pre op CABG;Other: RESULT: Chest 2 Views Frontal and Lat Chest 2 Views Frontal and Lat REASON: Pre op CABG. COMPARISON: 08/06/2020, 11/29/2019. FINDINGS: LINES AND TUBES: None. LUNGS AND PLEURA: Clear lungs. Normal pulmonary vascularity. No pleural effusion. No pneumothorax. HEART, MEDIASTINUM AND JOCELYN: Heart is normal in size. Normal mediastinal and hilar contour. BONES AND SOFT TISSUES: No acute abnormality. Partially visualized cervical spinal fusion hardware, intact. IMPRESSION: No evidence of acute abnormality. I have personally reviewed the images and I agree with this report. WSN: [id number] Ordering Physician: Allison Cole Dictated By: Rahul Murphy MD Dictated Date/Time: 03/03/23 4:27 pm Reviewed By: Yoshi Ervin MD Signed By: Yoshi Ervin MD Signed Date/Time: 03/03/23 4:32 pm Transcribed By: KRIS Transcribed Date/Time: 03/03/23 4:22 pm Vital Signs Most recent to oldest [Reference Range]: 1 2 3 Height 172 cm (03/04/23 8:41 AM) 172 cm (03/04/23 3:50 AM) 172 cm (03/03/23 7:29 PM) Weight 96.4 kg (03/04/23 6:36 AM) 96.4 kg (03/02/23 11:36 PM) 96.4 kg (03/02/23 10:51 PM) Oxygen Saturation [94-100 %] 98 % (03/04/23 8:41 AM) 97 % (03/04/23 3:50 AM) 97 % (03/03/23 7:29 PM) Pulse Rate [55-90 bpm] 68 bpm (03/04/23 9:38 AM) 68 bpm (03/04/23 8:41 AM) 58 bpm (03/04/23 3:50 AM) Body Mass Index [18.5-24.99 kg/m2] 32.59 kg/m2 *>HHI* (03/02/23 11:36 PM) 32.59 kg/m2 *>HHI* (03/02/23 10:51 PM) 34.04 kg/m2 *>HHI* (03/02/23 7:30 AM) Blood Pressure [90-138/55-84 mm Hg] 127/86mm Hg (03/04/23 9:38 AM) 127/86mm Hg (03/04/23 9:38 AM) 127/86mm Hg (03/04/23 8:41 AM) Respiratory Rate [16-30 br/min] 18 br/min (03/04/23 8:41 AM) 16 br/min (03/04/23 3:50 AM) 18 br/min (03/03/23 7:29 PM) Temperature [96.8-100.4 DegF] 98.7 DegF (03/04/23 8:41 AM) 97.8 DegF (03/04/23 3:50 AM) 97.8 DegF (03/03/23 7:29 PM) Mode of Delivery (Oxygen) Room air (03/04/23 8:41 AM) Room air (03/04/23 3:50 AM) Room air (03/03/23 7:29 PM) Blood pressure sites Arm, left (03/04/23 8:41 AM) Arm, left (03/04/23 3:50 AM) Arm, right (03/03/23 7:29 PM) Temperature Route Temporal (03/04/23 8:41 AM) Temporal (03/04/23 3:50 AM) Temporal (03/03/23 7:29 PM) Dry Weight 96.4 kg (03/02/23 11:36 PM) 96.4 kg (03/02/23 10:51 PM) Weight Obtained Via Bed scale (03/04/23 6:36 AM) Sensory deficits Hearing deficit L, Hearing deficit R (03/02/23 10:51 PM) Social History Social History Type Response Smoking Status 5-9 cigarettes (betw een 1/4 to 1/2 pack)/day in last 30 days; Other: 8-9; entered on: 08/08/20 Sex Note * Pantera HENAO, Bowen Red: PERFORM Event Display: Discharge/Transfer Note Hospital Authored Date: [id number] Patient: ??KATELYNN KANG ? Age:??52 Years?Sex:??Male?:??1970?? Patient Information Discharge Location: 7 Primary Care Physician: Not on Staff, PCP Admit Date/Time: 03/02/23 15:29 Discharge Disposition Discharge Disposition: Home Discharge Diagnosis CAD (coronary artery disease) (I25.10) HLD (hyperlipidemia) (E78.5) HTN (hypertension) (I10) Smoker (F17.200) ?? _ Discharge Medications Albuterol (Ventolin HFA 108 mcg/inh inhalation aerosol with adapter)?INHALE 2 PUFFS INTO THE LUNGS EVERY 4 HOURS NEEDED FOR COUGH OR WHEEZING. Aspirin (aspirin 81 mg oral tablet, chewable)?81?Milligram?1?tablet?By Mouth?Daily Atorvastatin (atorvastatin 80 mg oral tablet)?1?tab(s)?80?Milligram?By Mouth?Daily?Refill per PCP or Laborer/Grade Check Losartan (losartan 50 mg oral tablet)?50?Milligram?1?tablet?By Mouth?Daily Metoprolol (metoprolol 25 mg oral tablet)?25?Milligram?1?tablet?By Mouth?2 times a day?Refill per PCP or Laborer/Grade Check Nitroglycerin (nitroglycerin 0.4 mg sublingual tablet)?DISSOLVE 1 TABLET UNDER THE TONGUE EVERY 5 MINUTES NEEDED FOR CHEST PAIN Polyethylene Glycol 3350 (MiraLax oral powder for reconstitution)?17?gram?By Mouth?Daily?as needed?Constipation?dissolve in water before taking Tamsulosin (tamsulosin 0.4 mg oral capsule)?0.4?Milligram?1?capsule?By Mouth?Daily ? Vaccinations and Immunoprophylaxis Pneumococcal Vaccine (oldterm): 0.5 mL (12/09/08 15:09:00) ? Medications Started Atorvastatin Metoprolol Medications Discontinued None Doses Changed None Allergies Allergies ?(Active and Proposed Allergies Only) Adhesive Bandage? (Severity: Unknown severity, Onset: Unknown) ?Comments: plastic tape Bee Stings? (Severity: Unknown severity, Onset: Unknown) codeine? (Severity: Unknown severity, Onset: Unknown) ?Reactions: wheezing Valium? (Severity: Unknown severity, Onset: Unknown) ?Reactions: violent Zithromax? (Severity: Unknown severity, Onset: Unknown) ?Reactions: swelling ? Hospital Course 52-year-old gentleman with history of hypertension, hyperlipidemia, previous history of stroke, Guillain [place] syndrome, who was having intermittent chest discomfort on exertion and underwent a stress test which showed inferior ischemia. The patient reported 4/10 chest pain since his stress test. ??On 01/31,??the patient underwent a left heart catheterization with coronary angiogram by Dr Lyman, which showed normal LMCA, 99% stenosis in the mid subsection of mid LAD which is a long lesion, 90% stenosis in the proximal subsection of OM1 and 80% stenosis in the proximal subsection of OM 2, 70% st enosis in the mid subsection of mid RCA and 95% stenosis in the proximal subsection of RPL 2. He was admitted for multivessel CAD on that date??for Cardiothoracic Surgery consult.?? He was seen by Dr. Langley??on??03/03??who recommended for multiple tests??including??echo,??carotid ultrasound, and con trast CT imaging, these have all been accomplished. ?? 03/04: Accepted patient under my care at 7AM. Chart reviewed, saw and examined patient.?? Case discussed with??his surgeon??who??feels patient can be discharged to return??for surgery next week.?? He advises that??patient??avoid??strenuous activity and take it easy until the surgery. ??Patient was counseled to??length about this.?? He is agreeable??with plan his meds were sent to hospital pharmacy??. ?? Assessment and Plan ?? Multivessel CAD Hypertension Hyperlipidemia Stable angina intermittent chest discomfort on exertion and underwent a stress test which showed inferior ischemia. l??03/02??eft heart catheterization with coronary angiogram showed normal LMCA, 99% stenosis in the mid subsection of mid LAD which is a long lesion, 90% stenosis in the proximal subsection of OM1 and80% stenosis in the proximal subsection of OM 2, 70% stenosis in the mid subsection of mid RCA and 95% stenosis in the proximal subsection of RPL 2. A1c 5.6, LDL 98 Preop work-up: Echocardiogram,??carotid Doppler,??duplex vein mapping bilateral lower extremity, chest x-ray,??hepatitis panel, type and screen,??prealbumin, CRP, magnesium??has been ordered/obtainedper CTS. ?? -Discharge home -Continue aspirin 81 mg daily -Continue atorvastatin 80 mg daily at bedtime -Continue losartan, metoprolol -Nitroglycerin as needed for chest pain -EKG for any acute chest pain -CT surgery consulted??and recommendations appreciated??: plan for CABG??next 03/11, patient would like to be discharged home??after preop work- up??completed, discussed with??his surgeon on date of discharge and??he is in agreement ?? BPH: -Continue tamsulosin 0.4 mg daily. ?? Tobacco Use Patient reported smoking 1 pack per day since age 6. He has been??counseled on benefits of quitting- he is in agreement. Patient has tried different forms of nicotine replacement unsuccessfully and declines??NRT at this time.? -Recommend that patient be referred to [facility]on next??admission for??intensified??tobacco use cessation ?? Please note, dictation software ([employer])??may have been used in the preparation of this note, and may have generated unintentional errors in speech recognition. If there are any questions going forward, please reach out for clarification. Objective Measurements?? Height: 172 cm (03/04/23) Weight: 96.4 kg (03/04/23) Dry Weight: 96.4 kg (03/02/23) Body Mass Index:??32.59 kg/m2??Critical (03/02/23) ? Vital Signs?? Temperature: 98.7 DegF (03/04/23 08:41:00) Temperature Route: Temporal (03/04/23 08:41:00) Pulse Rate: 68 bpm (03/04/23 09:38:00) Respiratory Rate: 18 br/min (03/04/23 08:41:00) Systolic Blood Pressure: 127 mm Hg (03/04/23 09:38:00) Systolic Blood Pressure: 127 mm Hg (03/04/23 09:38:00) Diastolic Blood Pressure:??86 mm Hg??High (03/04/23 09:38:00) Diastolic Blood Pressure:??86 mm Hg??High (03/04/23 09:38:00) Blood pressure sites: Arm, left (03/04/23 08:41:00) Mean Arterial Pressure: 100 mm Hg (03/04/23 08:41:00) Pulse Pressure: 41 mm Hg (03/04/23 08:41:00) Oxygen Saturation: 98 % (03/04/23 08:41:00) Mode of Delivery (Oxygen): Room air (03/04/23 08:41:00) Early Warning Score: 0 (03/04/23 09:41:47) ? . Physical Exam Constitutional: Alert, in no acute distress. Head EENT: PERRL.??NCAT. Neck: Supple. No obvious LAD. Respiratory: CTAB. No use of accessory muscles. Cardiovascular: S1S2 present. No obvious JVD. Gastrointestinal: Abdomen soft, non-tender, non-distended. Bowel sounds present. Genitourinary: No CVA tenderness. Genital exam deferred. Extremities: No lower extremity pitting??edema. No cyanosis or clubbing. Neurologic: Alert, generally appropriate. Speech normal. No gross focal neurological deficits. Consultants Interventional cardiology Cardiac Surgery Cardiac Rehab Pending Results Add On Lab Order ordered on 03/03/2023 Add On Lab Order ordered on 03/03/2023 Add On Lab Order ordered on 03/03/2023 Hepatitis A Ab IgM ordered on 03/04/2023 Hepatitis B Surface Antigen ordered on 03/04/2023 Hepatitis C Ab ordered on 03/04/2023 Patient Education Titles Zones AMI?? Zones Living Smoke Free?? M-AMI Teach Back Note?? Discharge Instructions for Heart Attack?? Coronary Bypass Surgery: My Heart Attack Was Just the Beginning?? Metoprolol Oral Tablet?? Polyethylene Glycol 3350 Powder For Oral Solution?? Atorvastatin Oral Tablet?? Follow-Up Appointments Added Follow Up ?Time Frame ?Comments Dr. Langley Not on Staff, PCP Patient Instructions -Take it easy until your cardiac surgery next week, no heavy lifting or heavy exertion -Take a sensible diet??and continue home meds??unless otherwise instructed by your surgeon -Follow-up as scheduled with??Dr. Langley for surgery Post Discharge Care Discharge ?03/04/23 9:52:00 EDT Results Discharge Labs BLOOD BANK Blood Type O Positive ()?? 03/03/2023 13:54 Antibody Screen Negative ()?? 03/03/2023 13:54 ?? BLOOD COUNT & DIFF WBC 10.9 k/mm3 ()?? 03/02/2023 19:56 RBC 5.23 m/mm3 ()?? 03/02/2023 19:56 Hgb 15.5 Gm/dL ()?? 03/02/2023 19:56 Hct 46.1 % ()?? 03/02/2023 19:56 MCV 88.1 femtoliters ()?? 03/02/2023 19:56 MCH 29.6 pg ()?? 03/02/2023 19:56 MCHC 33.6 g/dL ()?? 03/02/2023 19:56 Platelet Count 260 k/mm3 ()?? 03/02/2023 19:56 RDW-SD 47.9 femtoliters (High)?? 03/02/2023 19:56 MPV 8.2 femtoliters (Low)?? 03/02/2023 19:56 Nucleated RBC (Automated) 0.0 #/100 WBC'S ()?? 03/02/2023 19:56 Abs. NRBC 0.0 k/mm3 ()?? 03/02/2023 19:56 ?? CHEM GENERAL Sodium 139 mmol/L ()?? 03/02/2023 19:56 Potassium 4.0 mmol/L ()?? 03/02/2023 19:56 Chloride 105 mmol/L ()?? 03/02/2023 19:56 Bicarbonate Level 24 mmol/L ()?? 03/02/2023 19:56 Anion Gap 10 ()?? 03/02/2023 19:56 Glucose Level 97 mg/dL ()?? 03/02/2023 19:56 Hemoglobin A1C (Monitoring) 5.6 % ()?? 03/02/2023 19:56 BUN 16 mg/dL ()?? 03/02/2023 19:56 Creatinine-Blood 1.1 mg/dL ()?? 03/02/2023 19:56 Estimated GFR Creatinine 76 ML/MIN/1.73 M2 ()?? 03/02/2023 19:56 Calcium 9.1 mg/dL ()?? 03/02/2023 19:56 Magnesium 2.2 mg/dL ()?? 03/04/2023 03:54 C-Reactive Protein <0.3 mg/dL ()?? 03/04/2023 03:54 ? IMMUNOLOGY GENERAL Prealbumin 22.3 mg/dL ()?? 03/04/2023 03:54 ? LIPID STUDIES Cholesterol 159 mg/dL ()?? 03/03/2023 02:07 Triglycerides 142 mg/dL ()?? 03/03/2023 02:07 HDL Cholesterol 33 mg/dL (Low)?? 03/03/2023 02:07 LDL Cholesterol 98 mg/dL ()?? 03/03/2023 02:07 Non HDL Cholesterol 126 mg/dL ()?? 03/03/2023 02:07 ? SEROLOGY INF DISEASE Anti Hepatitis A IgM NEGATIVE (N)?? 03/03/2023 02:07 Hepatitis B Surface Antigen NEGATIVE (N)?? 03/03/2023 02:07 Hepatitis C Ab NEGATIVE (N)?? 03/03/2023 02:07 ? URINE OTHER Est Creatinine Clearance 73.56 mL/min ()?? 03/02/2023 23:12 ? 40??minutes spent on discharge * Joy Barone RN: PERFORM Event Display: Patient Education/Instruction Authored Date: [id number] Inpatient Adult Discharge Instructions [address] [address] Name: KATELYNN KANG : 1970 Visit: 03/02/2023 15:29:00 Current Date: 03/04/2023 11:04 Account: [id number] Inpatient Adult Discharge Instructions We would like to thank you for allowing us to assist you with your healthcare needs. The following includes patient education materials and information regarding your injury/illness. Our entire staffstrives to provide an excellent experience for our patients and their families. PLEASE ENSURE YOU FOLLOW-UP PER THE INSTRUCTIONS BELOW! ?? YOUR OPINION IS IMPORTANT TO US! Please complete the survey you may receive by mail or email. Your feedback will be used to make improvements to the healthcare experiences of our patients and their families. Surveys are administered by [employer] ?? If further treatment with your primary care physician or another doctor is recommended, it is important for you to keep the appointment. Call your primary care physician or return to the Emergency Department immediately if your condition worsens, fails to improve, or new symptoms develop. If you need to find a doctor, you can call [facility] [employer] for a referral at [phone] or toll free at [phone]) or log in to [email or web address].. ?? You can view and manage your care through the patient portal or by using a health care clint of your choosing. [employer] is a website that allows you to securely view your medical information including your hospital discharge summary, office visit summaries, medications and follow-up visits. You can also request appointments, renew medications, and request access to your medical information using a health care clint of your choosing, or just ask a question. You can enroll at [email or web address] or register during your next office visit. You have been discharged from [facility], Patient Care Unit: M7. If you have any questions regarding these instructions after you leave, please call us and we will be happy to assist you. [facility] Your Care Team Attending Physician Bowen Mott MD Discharging Providers Bowen Mott MD Reason for Your Visit galo pain Your Diagnosis CAD (coronary artery disease) HLD (hyperlipidemia) HTN (hypertension) Smoker Tests Performed Below is a partial list of the tests performed during your hospitalization. You may have had other tests and procedures not included in this list. Please discuss all test results with your provider. ANTI HEP. A IGM ANTI-HEPATITIS C BUN C-REACTIVE PROTEIN Calcium Level CBC Creatinine CRP Electrolytes Glucose Level HEMOGLOBIN A1C HEP. B SURF. AG Lipid Panel MAGNESIUM Mg Level Prealbumin Type and Screen Chest CT W/O Contrast CXR W/ Frontal and Lat Primary Care Provider Not on Staff, PCP Advance Directive . Discharge Vitals Temperature: 98.7 DegF Height: 172 cm Pulse Rate: 68 bpm Weight: 96.4 kg Respiratory Rate: 18 br/min Body Mass Index:??32.59 kg/m2??Critical Systolic Blood Pressure: 127 mm Hg Body surface area: 2.15 Systolic Blood Pressure: 127 mm Hg ?? Diastolic Blood Pressure:??86 mm Hg??High ?? Diastolic Blood Pressure:??86 mm Hg??High ?? Oxygen Saturation: 98 % ?? Studies Pending All tests and labs ordered during this hospital stay have been completed unless listed below. Please discuss all pending results with your provider listed above in these instructions. ?? Add On Lab Order Hepatitis A Ab IgM Hepatitis B Surface Antigen Hepatitis C Ab What to do next Instructions From Your Doctor -Take it easy until your cardiac surgery next week, no heavy lifting or heavy exertion -Take a sensible diet??and continue home meds??unless otherwise instructed by your surgeon -Follow-up as scheduled with??Dr. Langley for surgery Discharge Orders You Need to Schedule the Following Appointments Follow Up with??Korin HENAO, [facility] When:??03/11/2023 05:00 AM EDT Why: Please follow instructions to return for heart surgery next week Where: ?? Follow Up with??Dr. Langley Follow Up with??Not on Staff, PCP Discharge Medications KATELYNN KANG :1970 Visit Date:03/02/2023 Medications: Please continue your medications until treatment is completed or stopped by your provider. Medications not listed below should be discontinued. Discuss any questions related to medications with your provider. What How Much When Instructions Next Dose New Metoprolol (metoprolol 25 mg oral tablet) 1 tab(s) Oral Twice a day Refill per PCP or Laborer/Grade Check ?? [facility] Tonight 9pm ?? every day 9am and 9pm New Polyethylene Glycol 3350 (MiraLax oral powder for reconstitution) 17 gram Oral Daily as needed for Constipation dissolve in water before taking ?? [facility] at [facility] as needed for constipation.?? we do not want you to strain to have a bowel movement Changed Atorvastatin (atorvastatin 80 mg oral tablet) 1 tab(s) Oral Daily Refill per PCP or Laborer/Grade Check ?? [facility] at [facility] Tonight at bedtime Changed Losartan (losartan 50 mg oral tablet) 1 tab(s) Oral Daily Tomorrow AM Changed Tamsulosin (tamsulosin 0.4 mg oral capsule) 1 capsule Oral Daily Tomorrow AM Unchanged Albuterol (Ventolin HFA 108 mcg/ inh inhalation aerosol with adapter) INHALE 2 PUFFS INTO THE LUNGS EVERY 4 HOURS NEEDED FOR COUGH OR WHEEZING. ?? as needed Unchanged Aspirin (aspirin 81 mg oral tablet, chewable) 1 tab(s) Oral Daily Tomorrow AM Unchanged EPINEPHrine (EPINEPHrine 0.3 mg injectable solution) as needed for allergic reaction Unchanged Nitroglycerin (nitroglycerin 0.4 mg sublingual tablet) DISSOLVE 1 TABLET UNDER THE TONGUE EVERY 5 MINUTES NEEDED FOR CHEST PAIN ?? as needed for chest pain, if pain does not resolve call 911 Pharmacy Information [facility]: [address], [place] [id number] [phone] Test Results Below is a partial list of the most recent Laboratory test results done prior to this discharge. You may have had other tests and procedures not included in this list. Please discuss all test resultswith your provider. Est Creatinine Clearance - 73.56 mL/min (03/02/2023) ANTI HEP. A IGM (03/03/2023) ???Anti Hepatitis A IgM - NEGATIVE ANTI-HEPATITIS C (03/03/2023) ???Hepatitis C Ab - NEGATIVE BUN (03/02/2023) ???BUN - 16 mg/dL C-REACTIVE PROTEIN (03/03/2023) ???C-Reactive Protein - 0.3 mg/dL Calcium Level (03/02/2023) ???Calcium - 9.1 mg/dL CBC (03/02/2023) ???WBC - 10.9 k/mm3???RBC - 5.23 m/mm3???Hgb - 15.5 Gm/dL???Hct - 46.1 %???MCV - 88.1 femtoliters???MCH - 29.6 pg???MCHC - 33.6 g/dL???Platelet Count - 260 k/mm3???RDW-SD - 47.9 femtoliters???MPV - 8.2 femtoliters???Nucleated RBC (Automated) - 0.0 #/100 WBC'S???Abs. NRBC - 0.0 k/mm3 Creatinine (03/02/2023) ???Creatinine-Blood - 1.1 mg/dL???Estimated GFR Creatinine - 76 ML/MIN/1.73 M2 CRP (03/04/2023) ? ?C-Reactive Protein - <0.3 mg/dL Electrolytes (03/02/2023) ???Sodium - 139 mmol/L???Potassium - 4.0 mmol/L???Chloride - 105 mmol/L???Bicarbonate Level - 24 mmol/L???Anion Gap - 10 Glucose Level (03/02/2023) ???Glucose Level - 97 mg/dL HEMOGLOBIN A1C (03/02/2023) ???Hemoglobin A1C (Monitoring) - 5.6 % HEP. B SURF. AG (03/03/2023) ???Hepatitis B Surface Antigen - NEGATIVE Lipid Panel (03/03/2023) ???Cholesterol - 159 mg/dL???Triglycerides - 142 mg/dL???HDL Cholesterol - 33 mg/dL???LDL Cholesterol - 98 mg/dL???Non HDL Cholesterol - 126 mg/dL MAGNESIUM (03/03/2023) ???Magnesium - 2.3 mg/dL Mg Level (03/04/2023) ???Magnesium - 2.2 mg/dL Prealbumin (03/04/2023) ???Prealbumin - 22.3 mg/dL Type and Screen (03/03/2023) ???Blood Type - O Positive???Antibody Screen - Negative Allergies (NKA means No Known Allergies) Adhesive Bandage Bee Stings Valium??(violent) Zithromax??(swelling) codeine??(wheezing) Problems Active Problems??(9) Acquired deafness of left ear?? Chest pain?? DVT, lower extremity?? GERD (gastroesophageal reflux disease)?? History of CVA (cerebrovascular accident) without residual deficits?? Hx of Lyme disease?? Obese class I?? Paresthesias?? Tobacco dependence?? Education Materials Below is the list of Educational Leaflet Providered with your Discharge Instructions. Zones AMI?? Zones Living Smoke Free?? M-AMI Teach Back Note?? Discharge Instructions for Heart Attack?? Coronary Bypass Surgery: My Heart Attack Was Just the Beginning?? Metoprolol Oral Tablet?? Polyethylene Glycol 3350 Powder For Oral Solution?? Atorvastatin Oral Tablet?? Valuables and Belongings I fully understand and agree that [facility] accepts no responsibility for all my personal property including clothing, toilet articles, radios, jewelry, dentures, hearing aids, rings, money, or any other property that is in my possession or is brought to me after admission. I understand certain valuables may be placed in a hospital safe for a short period of time. I understand that the hospital is not liable for loss or damage due to accident, fire, or other natural occurrence while said property is in the safe. I accept full responsibility for any personal property that I keep with me, and will not hold the hospital responsible in case of loss or disappearance. I acknowledge that i have been encouraged to send valuables and belongings home. ?? Review of Valuable and Belonging List: With patient Date for Pt to Sign Valuables/Belongings: 03/02/23 10:03:00 ?? Other Discharge Information ? Case Management Discharge Plan?? Discharge Plan?? Discharge Rx Program: Discharge Prescription Program ?? Pulmonary Rehab Status?? Pulmonary Rehab Discharge Status?? Respiratory Rate: 18 br/min ? Common Emergency Awareness Tips IS IT A STROKE? Act FAST and Check for these signs: FACE Does the face look uneven? ARM Does one arm drift down? SPEECH Does their speech sound strange? TIME Call at any sign of stroke ?? Heart Attack Signs Chest discomfort: Most heart attacks involve discomfort in the center of the chest and lasts more than a few minutes, or goes away and comes back. It can feel like uncomfortable pressure, squeezing, fullness or pain. Discomfort in upper body: Symptoms can include pain or discomfort in one or both arms, back, neck, jaw or stomach. Shortness of breath: With or without discomfort. Other signs: Breaking out in a cold sweat, nausea, or lightheaded. Remember, MINUTES DO MATTER. If you experience any of these heart attack warning signs, call to get immediate medical attention! ?? Smoking can increase your chances of developing chronic health problems and can cause harmful effects to other family members in your house. If you smoke, you are strongly encouraged to quit. Please call [facility] [employer] you [employer] Link at [phone] or [phone] ([phone]) or log in to www.[email or web address].org for referrals to smoking cessation programs. ?? 209 Suicide & Crisis Lifeline is available 10/05 if you or someone you know needs to find a reason to keep living. By calling 984 you'll be connected to a skilled, trained counselor at a crisis center in your area. INPATIENT DISCHARGE INSTRUCTIONS SIGNATURE JOURDAN KATELYNN KANG Location:[facility] Registration Date and Time:03/02/2023 15:29 EDT Primary Care Physician: Not on Staff, PCP Attending Physician: Pantera HENAO, Bowen Red, I KATELYNN KANG, have received the above patient education materials/instructions and have verbalized understanding. If ambulance or transport services are being used I further acknowledge being given a choice of service. ?? If you need to contact me, please call me at this number: . Patient/Solutions Architect Name: Patient/Solutions Architect Signature: Relationship to Patient: Witness Name/Signature: Date: * Joy Barone RN: PERFORM Event Display: Patient Education Leaflets Authored Date: [id number] Zones AMI ?? 340 ACUTE MYOCARDIAL INFARCTION ZONES EVERY DAY EVERY DAY: ??? Take your medicine as prescribed, even if you feel good. ??? Check for swelling in your feet, ankles, legs and stomach. ??? Eat a diet low in saturated fat, cholesterol and salt. ??? Balance activity and rest periods. ??? Don???t smoke, and avoid other people???s tobacco smoke. ??? Avoid alcohol use. ??? Practice relaxation skills to help manage and reduce stress. ??? Join a cardiac rehabilitation program in your area. Which Zone are you today? GREEN, YELLOW, or RED? GREEN ZONE ALL CLEAR - This zone is your goal Your symptoms are under control when: ??? No shortness of breath. ??? No chest pain or angina. ??? No swelling of your feet, ankles, legs or stomach. YELLOW ZONE STOP & CALL CAUTION - This zone is a warning If you have one or more, of the following: Call Laborer/Grade Check: ??? Chest pain relieved with nitroglycerin. ??? More shortness of breath than usual. ??? Swelling of your feel, ankles, legs, or stomach. ??? Weight gain of more than 3 pounds in 2 days. RED ZONE EMERGENCY Go to the emergency room or call 911 if you have any of the following DO NOT DRIVE YOURSELF : ??? Unrelieved shortness of breath while sitting still. ??? Chest pain unrelieved by nitroglycerin. ??? Discomfort in other areas of the upper body. ??? Breaking out in a cold sweat, nausea, or lightheadedness. ??? Sudden weakness or numbness of the face, arm, or leg, especially on one side of the body. ??? Suddenly have a hard time speaking. ??? Suddenly can???t see out of one eye. ??? Suddenly can???t understand what someone is saying. ??? Confusion or unable to think clearly. ? * Joy Barone RN: PERFORM Event Display: Patient Education Leaflets Authored Date: [id number] Zones Living Smoke Free ?? 415 ? LIVING SMOKE FREE ?? Smoking is one of the hardest habits to break.?? It takes most smokers 5-6 tries before they finally quit. So, don???t give up.?? Millions of people have given up smoking and so can you! The benefits of quitting start right away and keep improving the longer you go without smoking: ? Improve your ability to breathe without coughing or shortness of breath ? Reduce your risk of lung cancer, heart disease, chronic lung disease ? Have more money in your pocket ? Have whiter teeth, fewer wrinkles and softer skin ? Have better smelling hair, breath, clothes, home and car ? Improve your sense of taste and smell TRIGGERS TO SMOKING RELAPSE KNOW WHY YOU SMOKE AND WHAT YOUR SMOKING TRIGGERS ARE.?? WRITE YOUR TRIGGERS DOWN AND LOOK AT THEM OFTEN. Understand or identify your personal triggers. Some triggers may include: ? Drinking or socializing ? Being around smoking and/or smokers ? After a meal or work break time ? In the car stressful situations or boredom or loneliness ? When you wake up DEVELOP COPING SKILLS DEVELOP AND USE COPING SKILLS. Quitting smoking is a big change.?? People will congratulate you and you have the right to be proud?? But at times you may miss smoking, so plan ahead to resist temptation. ? Ask for the support of your family and friends.?? Call a friend when you want to smoke. ? Avoid people or places that can trigger you to smoke.?? Ask others not to smoke around you. ? Spend time in places where you can???t smoke, such as a restaurant. ? Surround yourself with non-smokers. ? Remind yourself why you quit.?? Stop yourself from ???just one more?? . ? Recognize triggers and find a way to cope. ? Change your habits; go for a walk after meals instead of smoking. ? Save the cigarette money and reward yourself. ? Exercise every day.?? This will reduce stress, improve your mood and keep weight stable or at a loss. ? INFORMATION ABOUT QUITTING GET SUPPORT. ?? Support programs can make an important difference, especially for the heavy smoker. ? QUITWORKS: Fax referrals to: http://quitworks.makesmokinghistory.org/ ? [place] Smokers??? Helpline: ? Icelandic: 1 (851) Quit-Now ( ) ? Niuean: (511) -8-D??hanna ( ) ? Quit Tips Line (24 hour recorded messages): www.[employer].Mango DSP (quit smoking information & local quit smoking support programs) ? SMOKING CESSATION RESOURCES Hospital Based Programs: Contact: [facility] ([place]) or [phone], ext. [phone] Acupuncture: ?? Acupuncture Center [facility] ([place]) Acupuncture Center [facility] ([place]) Traditional Acupuncture ([place]) Hypnosis: ?? [place] Ethical Hypnosis [facility] [place] ([place]) Additional Resources: ?? [place] Lung Association ([facility]) ([place]) [place] Lung Association Tobacco Quit-Line 5-[facility] ( ); www.lungusa.org Deaf or Hearing Impaired 1 (868) ??? TDD - 1470 [place] Cancer Society 800) KYB-3442; www.cancer.org [place] Heart Association ; www.americanheart.org Try to Stop www.trytostop.org [facility] www.nationaljewish.org Tobacco Free Initiative: World Health Organization www.who.int/[facility] Smokers Helpline Icelandic: 1 (240) Quit-Now( ) Ni[place]an: 1 (328) -8-D??hanna ( ) ?? QUITWORKS Fax referrals to: http://quitworks.[employer].org/ [facility] Start to Stop Program Check with your nearest Aqua[employer] Store ?? SMOKING CESSATION OPTIONS Acupuncture: ?? Flexible needles inserted into the skin to reduce the side effects of nicotine withdrawal. ?? Behavior Modification Program: ?? Helps you to understand your smoking history, reasons for smoking, set a target date to quit and plan how to resist the urge to smoke. ?? Hypnosis: ?? Hypnosis can help strengthen your motivation and reduce cravings for nicotine. ?? Nicotine Replacement Therapy (NRT): ?? Provides nicotine to help reduce the craving for nicotine and other withdrawal symptoms.?? This therapy can be provided by: ? Nicotine gum ? Nicotine inhalation device ? Nicotine lozenge ? Nicotine patch ?? Prescription Medications: bupropion sr (wellbutrin or zyban) or varenicline (chantix) ? * Joy Barone RN: PERFORM Event Display: Patient Education Leaflets Authored Date: M-AMI Teach Back Note ?? 162 Myocardial Infarction Teach Back Note ?? Identify primary learner: ?? Language: (please enter above information under RN to RN Communication in CIS) ?? P : Miocardial Infarction I : As per problem oriented plan of care E : Patient education on importance of: ? Mediterranean Diet (higher consumption of fruits, vegetables, beans, nuts, and seeds. Dairy products, fish and poultry are consumed in low to moderate amounts, and little red meat is eaten. Eggs are consumed zero to four times a week. Wine is consumed in low to moderate amounts) with % teach back. ? Cholesterol Levels (Desirable cholesterol level is below 200. 200-239 is borderline, and over 240 is high. LDL is bad and HDL is good) with % teach back. ? Warning Signs of a Heart Attack (typical vs Atypical Chest Pain) with % teach back. ? Understanding Cardiovascular Risk Factors (Modifiable vs. Non-Modifiable, Realistic TherapeuticLifestyle Changes, focusing on smoking cessation & importance of Cardiac Rehab Phase II) with % teach back. ? How to Initiate the Emergency Response System (Educate pt on dialing with warning signs and initiation of CPR if family present. Give copy of CPR discharge instructions in CIS to family) with % teach back. ? Signs + Symptoms when to call MD (Chest pain, Shortness of Breath. Weakness, Numbness, Loss of Vision, Slurred Speech, Coolness in extremities, palpitations, nausea, vomiting, and change of appetite) with % teach back. ? Post Procedure Discharge Instructions (If applicable, educate pt on activity restrictions and incision care) with % teach back. ? NH Medications (in layman???s terms explain Antiplatelet therapy with emphasis on ASA/Plavix/Effient, Beta Blockers, BEBO Inhibitors, Ca Channel Blockers, Statins, and Vasodilators) with %teach back. ? Call to obtain appointment with PCP and Laborer/Grade Check as soon as arrival home (provide phone #???s if needed) with % teach back. ?? * Event Display: Hemodynamic Procedure Report Authored Date: Cardiac catheterization study * Event Display: Cardiac Strategic Sourcing Manager Report Authored Date: Cardiac Diagnostic Report Demographics Patient Name JORGE LUIS PACE Gender Male [employer] Room Number B210 Height 67.72 inches Date of 1970 Weight 222.01 pounds Age 52 year(s) BSA 2.13 m2 Accession Number [id number] BMI 34.04 kg/m2 Referring Physician Heriberto Lyman MD Date of Study 03/02/2023 Yoshi Mota MD Performing Physician Heriberto Lyman MD Fellow Interventional Physician Procedure Procedure Type Diagnostic procedure:Coronary Angiography with [facility] Diagnostic Catheterization Status:Elective Indications Indications: Abnormal nuclear perfusion study. Clinical History Admission Medications + +------+-------+ + + +---------+ !Medication !Dosage!Times !Last !Last !Administered !Comments ! ! ! !Per Day!Delivery !Delivery ! ! ! ! ! ! !Date !Time ! ! ! + +------+-------+ + + +---------+ !Statin (any) !20 mg !x 1 !03/02/2023 !06:00 !Yes ! ! + +------+-------+ + + +---------+ !Aspirin (any)!81 mg !x 1 !03/01/2023 !00:00 !Yes ! ! + +------+-------+ + + +---------+ Clinical Evaluation Leading to Procedure - The patient's CAD presentation was assessed as: Stable angina. - The patient's anginal syndrome during the past two weeks was assessed as: Class III according to the [place] Cardiovascular Society Classification System (CCS). Anti-anginal medications were prescribed during the past two weeks. The medication is: Beta Blockers. Exercise Nuclear study showed Positive results ACC Risk Factors The patient risk factors include:cerebrovascular disease, treated hypercholesterolemia, treated hypertension, last creatinine: 0.9 mg/dl, creatinine clearance: 133.65 ml/min, dyslipidemia and Current - Every day tobacco use. Additional Clinical History:52-year-old gentleman with history of hypertension, hyperlipidemia, previous history of stroke who was having intermittent chest discomfort on exertion and underwent a stress test which showed inferior ischemia. Scheduled for left heart catheterization with coronary angiogram. No contrast allergy and normal renal function. Procedure Data Procedure Date Date: 03/02/2023Start: 10:54End: 11:26 The procedure was explained in detail to the patient. Risks, complications and alternative treatments were reviewed. Written consent was obtained. Entry Locations - Retrograde Percutaneous access was performed through the Right Radial artery (Primary location). A 6 Fr sheath was inserted. Hemostasis was successfully obtained using TR Band. Closure Comments: 13 cc's in TR band. Procedure Medications - Versed (Midazolam) I.V. 1 mg. - Fentanyl I.V. 50 mcg. - Versed (Midazolam) I.V. 1 mg. - Fentanyl I.V. 50 mcg. - Lidocaine 2% S.C. Right Wrist 3 ml. - Nitroglycerin 200 mcg. - Heparin I.V. 5000 units. - 0.9NS I.V. bolus 250 ml. Sedation: My intra-service moderate sedation time was: from 11:08 to 11:25. Refer to procedural log for detailed chronological information. Contrast Material - Omnipaque 40 ml Diagnostic Catheters - [id number] RADIAL TIG 4.0 RADIFOCUS OPTITORQUE CATHETERwas used for: Left heart catheterization. - [id number] RADIAL TIG 4.0 RADIFOCUS OPTITORQUE CATHETERwas used for: Right coronary angiography. - [id number] RADIAL TIG 4.0 RADIFOCUS OPTITORQUE CATHETERwas used for: Left coronary angiography. Fluoroscopy Time: Diagnostic: 1:55 minutes. Total: 1:55 minutes. Fluoroscopy Dose: Diagnostic: 234 mGy. Total: 234 mGy. Dose Area Product:Diagnostic: 37580 mGy/cm2. Total: 39109 mGy/cm2. Dose Area Product:Diagnostic: 1689.3708621982293 ??Gy/m2. Total: 1689.7980819274542 ??Gy/m2. Procedure Narrative Patient is seen and examined in the Strategic Sourcing Manager. The description of the procedure and the risk and benefit including bleeding, radial spasm, contrast-induced nephropathy, NH, stroke, , angioplasty related dissection or perforation were mentioned to the patient. The patient understood and agreed to proceed with the procedure. Right radial artery access was obtained and a 6 Chinese sheath was placed. The diagnostic angiogram was performed with [place] diagnostic catheter. LVEDP was measured along with pullback gradient across aortic valve. At the end of the procedure, the sheath was removed and a TR band was placed. Angiographic Findings Cardiac Arteries and Lesion Findings LAD: Lesion in Mid LAD: Mid subsection.99% stenosis .The lesion was diffuse. LCx: Lesion in 1st Ob Yady: Proximal subsection.90% stenosis . Lesion in 2nd Ob Yady: Proximal subsection.80% stenosis . RCA: Lesion in Mid RCA: Mid subsection.70% stenosis . Lesion in 2nd RPL: Proximal subsection.95% stenosis . Hemodynamics Condition: Rest O2 Consumption: Estimated: 254.68Heart Rate: 72 bpm Pressures (mmHg) +-----+ + !Site !Pressure ! +-----+ + !LV !131/-5 ,3 ! +-----+ + !AO !126/81 (101)! +-----+ + !LV !130/-3 ,4 ! +-----+ + !AO !131/86 (107)! +-----+ + Valve Gradients and Areas +------+----+----+----+-----+----+------+ !Valve !Peak!Mean!Area!Index!Flow!Source! +------+----+----+----+-----+----+------+ !Aortic!4 !0 ! ! ! ! ! +------+----+----+----+-----+----+------+ !Aortic!4 !0 ! ! ! ! ! +------+----+----+----+-----+----+------+ Shunts Oxygen Values O2 Consumption 254.68 Interventional Procedure Conclusions Diagnostic Summary 52-year-old gentleman with multiple risk factors including hypertension, hyperlipidemia, active tobacco use who was having intermittent chest discomfort. LVEDP 3 mmHg. No significant pullback gradient across aortic valve. Diagnostic angiogram revealed normal LMCA, 99% stenosis in the mid subsection of mid LAD which is a long lesion, 90% stenosis in the proximal subsection of OM1 and 80% stenosis in the proximal subsection of OM 270% stenosis in the mid subsection of mid RCA and 95% stenosis in the proximal subsection of RPL 2. Considering the above finding, the patient should be evaluated for cardiothoracic surgery. He has good landing zone for MONTANEZ to LAD, SVG to OM1, OM 2 and SVG to PDA. We will get him admitted to the hospital for inpatient CABG eval. Diagnostic Recommendations Aggressive secondary risk factor modification according to ATP III guidelines. Continue aspirin 81 mg/day indefinitely. Cardiothoracic surgery evaluation for CABG, preferably inpatient CABG. Patient will see Dr. Marques at [facility] cardiology office in 6 to 8 weeks. Signatures * Event Display: Cardiac Strategic Sourcing Manager Report Authored Date: History and physical note * Event Display: History and Physical Hospital Authored Date: Admission evaluation note * Radha Alvarado NP: MODIFY, MODIFY, MODIFY, MODIFY, MODIFY, MODIFY, MODIFY, PERFORM Event Display: Admission Note Authored Date: Patient: ??KATELYNN KANG ? Age:??52 Years?Sex:??Male?:??1970?? History of Present Illness The patient is a 52-year-old gentleman with history of hypertension, hyperlipidemia, previous history of stroke, Guillain [place] syndrome, who was having intermittent chest discomfort on exertion and underwent a??stress test which showed inferior ischemia.?? The patient reports 4/10 chest pain sincehis stress test.?? He denies shortness of breath, nausea, vomiting, dizziness, diaphoresis, fevers,or chills. The patient underwent a left heart catheterization with coronary angiogram by Dr Lyman, today which showed normal LMCA, 99% stenosis in the mid??subsection of mid LAD which is a long lesion, 90% stenosis in the proximal??subsection of OM1 and 80% stenosis in the proximal subsection of OM2, 70% stenosis in the mid subsection of mid RCA and 95% stenosis in the proximal subsection of RPL2.?? He is now admitted for multivessel CAD and??cardiothoracic surgery consult.? The patient is afebrile with elevated blood pressure (156/98) and otherwise stable vital signs.?? Laboratory data is pending. Review of Systems Constitutional:??No weight loss, fever, chills, weakness or fatigue. Allergy/Immune: Denies any??Eczema or hives Eyes:??No visual loss, blurred vision, double vision or yellow sclera ENT:??No hearing loss, sneezing, congestion, runny nose or sore throat. Respiratory:??No shortness of breath, cough or sputum production. Cardiovascular:?? Chest pain, chest discomfort. No palpitations or pedal edema. Gastrointestinal:??No anorexia, nausea, vomiting or diarrhea. No abdominal pain or blood in stool. Genitourinary:??No burning micturition. No urinary frequency or incontinence. Neurologic:??No headache, dizziness, syncope.?? Reports bilateral LE weakness,??numbness or tingling.from previous GBS.? No change in bowel or bladder control. Musculoskeletal:??No muscle pain, back pain, joint pain or stiffness. Hematologic/Lymphatics:??No bleeding or bruising. No painful lymph nodes. Skin:??No rash or itching. Endocrine:??No reports of sweating. No cold or heat intolerance. No polyuria or polydipsia. Psychiatric:??No depression or anxiety. Objective Vital Signs?? Temperature: 98.2 DegF (03/02/23 19:18:00) Temperature Route: Temporal (03/02/23 19:18:00) Pulse Rate: 67 bpm (03/02/23 19:18:00) Heart Rate Monitored: 73 bpm (03/02/23 13:30:00) Respiratory Rate: 20 br/min (03/02/23 19:18:00) Systolic Blood Pressure: 131 mm Hg (03/02/23 19:18:00) Diastolic Blood Pressure: 81 mm Hg (03/02/23 19:18:00) Blood pressure sites: Arm, right (03/02/23 19:18:00) Mean Arterial Pressure: 98 mm Hg (03/02/23 19:18:00) Pulse Pressure: 50 mm Hg (03/02/23 19:18:00) Oxygen Saturation: 96 % (03/02/23 19:18:00) Mode of Delivery (Oxygen): Room air (03/02/23 19:18:00) Early Warning Score: 0 (03/02/23 19:19:18) ? Intake/Output? 03/02 15:29 03/02 07:00 03/01 07:00 02/28 07:00 02/27 07:00 ?? 03/02 19:29 03/02 19:29 03/02 06:59 03/01 06:59 02/28 06:59 Intake ?120 ?120 ?0 ?0 ?0 Output ?0 ?0 ?0 ?0 ?0 Net Total ?120 ?120 ?0 ?0 ?0 ? Urine Count ?4 ?4 ?0 ?0 ?0 ? Physical Exam Constitutional: Alert, in no distress. Mental Status: Oriented to person, place and time. Head: Normocephalic. Eyes: Pupils are equal, round and reactive to light. Extraocular muscles intact. Ear, Nose and Throat: Oropharynx clear, mucous membranes moist. Ears and nose without masses, lesions or deformities. Trachea midline. Neck: Supple, Full range of motion. Respiratory: Clear to auscultation. No wheezing, rales or rhonchi. Cardiovascular: S1 S2 regular. No murmurs, rubs or gallops. Gastrointestinal: Abdomen soft, non-tender, non-distended. Normal bowel sounds. No pulsatile mass. No hepatosplenomegaly. Genitourinary: No costovertebral angle tenderness. Neurologic: Cranial nerves II-XII grossly intact. No focal neurological deficits. Flexor plantar response. Moves all extremities spontaneously. Sensation intact bilaterally. Skin: No rashes or lesions. No petechiae or purpura.?? Musculoskeletal: No cyanosis or clubbing. No gross deformities. Normal range of motion. Heme/Lymphatics/Immun: Palpation of neck reveals no swelling or tenderness of neck nodes. Palpationof groin reveals no swelling or tenderness of groin nodes. Psychiatric: Normal mood and affect Assessment/Plan Assessment:??The patient is a 52-year-old gentleman with history of hypertension, hyperlipidemia, previous history of stroke, Guillain [place] syndrome, who was having intermittent chest discomfort on exertion and underwent a stress test which showed inferior ischemia. The patient reports 4/10 chest p ain since his stress test. He denies shortness of breath, nausea, vomiting, dizziness, diaphoresis,fevers, or chills. The patient underwent a left heart catheterization with coronary angiogram by Bautista, today which showed normal LMCA, 99% stenosis in the mid subsection of mid LAD which is a long lesion, 90% stenosis in the proximal subsection of OM1 and 80% stenosis in the proximal subsectionof OM 2, 70% stenosis in the mid subsection of mid RCA and 95% stenosis in the proximal subsection of RPL 2. He is now admitted for multivessel CAD and cardiothoracic surgery consult. ?? The patient is afebrile with elevated blood pressure (156/98) and otherwise stable vital signs. Laboratory data is pending. ?? Multivessel CAD, Hypertension, Hyperlipidemia, Stable angina: 52-year-old gentleman with history of hypertension, hyperlipidemia, previous history of stroke, Guillain [place] syndrome, who was having intermittent chest discomfort on exertion and underwent a stress test which showed inferior ischemia. The patient underwent a left heart catheterization with coronary angiogram by Dr Lyman, today which showed normal LMCA, 99% stenosis in the mid subsection of midLAD which is a long lesion, 90% stenosis in the proximal subsection of OM1 and 80% stenosis in the proximal subsection of OM 2, 70% stenosis in the mid subsection of mid RCA and 95% stenosis in the proximal subsection of RPL 2. -Optimize medical management. -Add Metoprolol 25 mg bid. -Continue ASA 81 mg daily. -Increase Atorvastatin to 80 mg daily. -Continue Losartan. -Ntg SL prn chest pain. -12 lead EKG prn chest pain. -Check lipids, HgbA1c. -Cardiothoracic surgery consulted- pending recommendations. ?? BPH: -Continue tamsulosin 0.4 mg daily. ?? Tobacco Use: -Patient reports smoking 1 pack per day since age 6. -Counseled on benefits of quitting- he is in agreement. -Patient has tried different forms of nicotine replacement unsuccessfully and declines??NRT at thistime.? Diet:?? Cardiac. ?? DVT prophylaxis:?? Lovenox SC. ?? Code Status:?? Full. ?? Discharge Planning:?? -Pending cardiothoracic surgery consult, which will determine disposition. ? Histories Allergies Allergies ?(Active and Proposed Allergies Only) Adhesive Bandage? (Severity: Unknown severity, Onset: Unknown) ?Comments: plastic tape Bee Stings? (Severity: Unknown severity, Onset: Unknown) codeine? (Severity: Unknown severity, Onset: Unknown) ?Reactions: wheezing Valium? (Severity: Unknown severity, Onset: Unknown) ?Reactions: violent Zithromax? (Severity: Unknown severity, Onset: Unknown) ?Reactions: swelling ? Past Medical History/Problem List Active Problems??(9) Acquired deafness of left ear Chest pain DVT, lower extremity GERD (gastroesophageal reflux disease) History of CVA (cerebrovascular accident) without residual deficits Hx of Lyme disease Obese class I Paresthesias Tobacco dependence ? Past Surgical History Esophagogastroduodenoscopy and biopsy: 10/17/20 Colonoscopy incomplete, poor preparation0 Appendectomy Compartment syndrome decompression of lower limb Dental surgery Cervical fusion Excisional biopsy left axilla ? Social History Alcohol Details:??Use: Never. Exercise Details:??Self assessment: Fair condition. ??Regular exercise: Yes. Nutrition/Health Details:??Diet: Regular. ??Caffeine intake amount: none. Substance Abuse Details:??Use: Never. Tobacco Details:??Use: 5-9 cigarettes (between 1/4 to 1/2 pack)/day in last 30 days. ??Other: 8-9. ? Psychosocial History ? Family History Mother: Cancer of breast Father: Cancer of lung; Esophageal cancer; Skin cancer ? Medications Home Medications Albuterol (Ventolin HFA 108 mcg/inh inhalation aerosol with adapter)?INHALE 2 PUFFS INTO THE LUNGS EVERY 4 HOURS NEEDED FOR COUGH OR WHEEZING. Aspirin (aspirin 81 mg oral tablet, chewable)?81?Milligram?1?tablet?By Mouth?Daily Atorvastatin (atorvastatin 20 mg oral tablet)?1?tab(s)?20?Milligram?By Mouth?Daily Atorvastatin (atorvastatin 20 mg oral tablet)?1?tab(s)?20?Milligram?By Mouth?Daily Losartan (losartan 50 mg oral tablet)?50?Milligram?1?tablet?By Mouth?Daily Losartan (losartan 50 mg oral tablet)?TAKE 1 TABLET BY MOUTH EVERY DAY Nitroglycerin (nitroglycerin 0.4 mg sublingual tablet)?DISSOLVE 1 TABLET UNDER THE TONGUE EVERY 5 MINUTES NEEDED FOR CHEST PAIN Tamsulosin (tamsulosin 0.4 mg oral capsule)?0.4?Milligram?1?capsule?By Mouth?Daily Tamsulosin (tamsulosin 0.4 mg oral capsule)?TAKE 1 CAPSULE BY MOUTH EVERY DAY ? Inpatient Medications Medications (17) Active SCHEDULED: (6) Aspirin 81 mg Chew Tablet (aspirin 81 mg oral tablet, chewable) ??81 mg, By Mouth, Daily Atorvastatin 80 mg Tablet (atorvastatin 20 mg oral tablet) ??80 mg, By Mouth, Daily Losartan 50 mg Tablet (losartan 50 mg oral tablet) ??50 mg, By Mouth, Daily Metoprolol 25mg Tablet (metoprolol 25 mg oral tablet) ??25 mg, By Mouth, 2 times a day NaCl 0.9% Flush 3ml (NaCL 0.9% Flush) ??3 mL, IV Push, Every 8 hours Tamsulosin 0.4 mg Capsule (tamsulosin 0.4 mg oral capsule) ??0.4 mg, By Mouth, Daily CONTINUOUS: (2) NaCL 0.9% (500 mL) Cont IV 500 mL (NaCL 0.9% 500 mL) ??500 mL, IV Infusion, 75 mL/hr NaCL 0.9% (500 mL) Cont IV 500 mL (NaCL 0.9% 500 mL) ??500 mL, IV Infusion, 100 mL/hr PRN: (9) Acetaminophen 325 mg Tablet (Acetaminophen Tablet) ??650 mg, By Mouth, Every 4 hours Albuterol 90mcg/Inhalation Inhaler HFA (Ventolin 90 mcg Inhaler) ??180 mcg 2 puffs, Inhalation, Every 4 hours Dextromethorphan-Guaifenesin 20 mg-200 mg/10 mL Liqu UD (Robitussin DM Liquid) ??10 mL, By Mouth, Every 4 hours Melatonin 3 mg Tablet (Melatonin Tablet) ??3 mg, By Mouth, Daily at bedtime NaCl 0.9% Flush 3ml (NaCL 0.9% Flush) ??3 mL, IV Push, Every 8 hours Nitroglycerin 0.4 mg Sublingual Tablet (nitroglycerin 0.4 mg sublingual tablet) ??0.4 mg, Sublingual, Every 5 minutes Polyethylene Glycol 17 Gm Powder (MiraLax Powder) ??17 Gm 1 pack/packet, By Mouth, Daily Senna 8.6 mg / Docusate 50 mg tablet (Docusate/Senna Tablet) ??1 tablet, By Mouth, 2 times a day Simethicone 80 mg Chewable Tablet (Simethicone Tablet) ??80 mg, Chew, 3 times a day ? Results Recent Labs No labs resulted between 03/01/2023 00:00 and 03/02/2023 19:29? EKG study * Event Display: EKG Authored Date: * Event Display: ECG 12-Lead Authored Date: Please click on pdf link to open report * Event Display: ECG 12-Lead Authored Date: Ventricular Rate: 76 BPM Atrial Rate: 76 BPM P-R Interval: 190 ms QRS Duration: 118 ms Q-T Interval: 404 ms QTC Calculation(Bazett): 454 ms P [place]: 55 degrees R [place]: 24 degrees T [place]: 48 degrees Normal sinus rhythm Incomplete right bundle branch block Borderline ECG When compared with ECG of 07-AUG-2020 15:12, No significant change was found Confirmed by ALON PANIAGUA ([id number]) on 03/03/2023 5:17:14 PM [place]: ALON PANIAGUA Heart * Event Display: Echocardiogram - Complete Authored Date: [id number] Transthoracic Echocardiography Report (TTE) Patient Demographics Patient Name KATELYNN KANG Date of Study 03/03/2023 Corporate Gender Male Facility Race Ethnicity Date of 1970 Height: 67.72 inches Age 52 year(s) Weight: 222.01 pounds Accession Number [id number] BSA: 2.13 m2 Room Number [id number] BMI: 34.04 kg/m2 Referring Physician Kwame Langley Interpreting Pramod Lockhart MD Physician Director Hardware Shahana Alan RCS Indications Chest pain and Pre-OP. Clinical History Obesity. Tobacco use. Hypertension. Hyperlipidemia. Hx stroke Study Data Type of Study TTE procedure:Echo Complete-Doppler, Colorflow, M-Mode. Study Date03/03/2023 Start Time: 01:26 PM [place] [facility] [place] Status: Echo lab Patient Status: [place] Technical Quality: Fair Blood Pressure:149/85 mmHg EKG: Normal sinus rhythm HR: 65 bpm Allergies - Adhesive tape. - Bee/Wasp stings. - Codeine. - Other allergy:(zithromax, Valium). 2D Measurements LV Diastolic Dimension: 4.9 cm LV Systolic Dimension: 3.1 cm LV Septum Diastolic: 1.2 cm LV PW Diastolic: 1.1 cm AO Root Dimension: 3.8 cm LA Dimension: 4 cm LA ESV (BP):53.1 ml LVOT Stroke Volume: 67.85 ml LA ESV Index: 25 ml/m2 Stroke Volume Index31.85 ml/m2 LVOT: 2.1 cm Cardiac Index:2.07 l/min/m2 Ascending Aorta:3.8 cm Doppler Measurements AV Peak Velocity: 136 cm/s MV Peak E-Wave: 57.2 cm/s AV Peak Gradient: 7.4 mmHg MV Peak A-Wave: 59.9 cm/s AV Mean Gradient: 4 mmHg MV E/A Ratio: 0.95 AV VTI:25.2 cm MV P1/2t: 56 msec LVOT Peak Velocity: 111 cm/s LVOT VTI19.6 cm MV Deceleration Time: 192 msec AV Area (Continuity):2.69 cm2 MV Area (PHT): 3.93 cm2 E' Septal Velocity: 4.57 cm/s E' Lateral Velocity: 6.85 cm/s E/Med E':12.15301 E/Lat E':8.839687 Cardiac Anatomy Left Ventricle/Interventricular Septum The left ventricular size is normal. The left ventricular wall thickness is mildly increased. The LV systolic function is normal. The left ventricular ejection fraction is 55-60%. Can not exclude hypokinesis of the basal inferior wall. Grade I, mild diastolic dysfunction with impaired LV relaxation. Left Atrium/Interatrial Septum The left atrial size is at the upper limit of normal. Aortic Valve The aortic valve is probably trileaflet. There is no aortic stenosis. There is no aortic regurgitation. Mitral Valve The mitral valve appears normal. There is trace mitral regurgitation. Aorta There is mild dilation of the ascending aorta. Right Ventricle The right ventricle is normal in size and function. Right Atrium The right atrium is normal in size. Pulmonic Valve The pulmonic valve is poorly visualized. Tricuspid Valve The tricuspid valve is grossly normal. There is trace tricuspid valve regurgitation. Pumonary Artery An accurate pulmonary artery pressure could not be obtained. Venous Structures The inferior vena cava appears normal. Pericardium/Extracardiac There is no significant pericardial effusion. Summary 1) The LV systolic function is normal. The left ventricular ejection fraction is 55-60%. Can not exclude hypokinesis of the basal inferior wall. 2) The left ventricular wall thickness is mildly increased. 3) The right ventricle is normal in size and function. 4) There is mild dilation of the ascending aorta. 5) No significant valvular abnormalities Comparison Comparison is made to the report of the study of August 08, 2020. There is no significant change. Signature * Event Display: Echocardiogram - Complete Authored Date: [id number] US.doppler Carotid arteries - bilateral * Event Display: VL Carotid Duplex Scan Bilat Authored Date: [id number] Demographics Procedure Information Patient name: JORGE LUIS PACE Procedure date: 03/03/2023 12:35 PM Corporate Proc. sub type: Cerebral: Carotid, Carotid Duplex Scan Bilateral. Gender: Male Accession No: [id number] Date of : 1970 Account No: [id number] Age: 52 year(s) Admit Status: Inpatient Facility: [facility] Procedure Staff Study [place] [facility] [place] Ordering physician: Kwame Langley Referring Physician: Kwame Langley Procedure consent obtained: No Attending Physician: Heriberto Lyman MD Admitting Physician: Heriberto Lyman MD Director Hardware: Clarence Whalen T RDMS Interpreting physician: Narayan Becerra MD Indications Carotid Stenosis. Carotid Diagram Right Left The diagram is not intended for diagnosis. It is provided for reference only. Carotid Procedure Findings Right Left Location PSV (cm/s) EDV (cm/s) Plaque Characteristics PSV (cm/s) EDV (cm/s) Plaque Characteristics Prox CCA 102.6 17.9 114.6 27.9 Dist CCA 102.7 17.9 112.2 27.9 Bulb 94.9 24.3 Heterogeneous 102.7 21.2 Heterogeneous Prox ICA 69.8 23.9 Heterogeneous 83.4 21.2 Heterogeneous Mid ICA 41.9 15.2 84.4 25.6 Dist ICA 106.9 30.7 86.8 29.3 Prox ECA 117.8 19.8 128.4 19.1 Vertebral 38.5 11.2 32.9 9.3 Prox Subclavian 188.2 0 216.9 0 Right ICA/CCA ratio: 1.04 Right verterbral flow: Antegrade Left ICA/CCA ratio: 0.77 Left verterbralflow: Antegr Carotid Plaque Details Left ICA/CCA ratio: 0.77 Left verterbral flow: Antegrade Right ICA/CCA ratio: 1.04 Right verterbral flow: Antegrade Study Comments REFERENCE Normal: Internal Carotid Artery (ICA) velocity is less than 180 cm/second with no visible plaque. ICA velocity less than 180 cm/second with some visible plaque indicates 1-49% stenosis. ICA velocity between 180-230 cm/second with visible plaque indicates 50-69% stenosis. ICA velocity greater than 230 cm/second with visible plaque indicates 70-99% stenosis. Total Occlusion is indicated by no detectable flow. Physician Conclusions Summary: Right side: 1-49% stenosis of the Internal Carotid Artery. Antegrade Vertebral artery flow. Multiphasic Subclavian artery flow. Left side: 1-49% stenosis of the Internal Carotid Artery. Antegrade Vertebral artery flow. Multiphasic Subclavian artery flow. * Event Display: VL Carotid Duplex Scan Bilat Authored Date: [id number] Cardiology * Event Display: VL Venous Duplex Mapping Lower Ext Bilat Authored Date: [id number] Demographics Procedure Information Patient name: JORGE LUIS PACE Procedure date: 03/03/2023 1:38 PM Corporate Proc. sub type: Veins: Lower Extremity Vein Mapping, Venous Duplex Map Lower Extremity Gender: Male Bilateral. Date of : 1970 Accession No: [id number] Age: 52 year(s) Account No: [id number] Admit Status: Inpatient Procedure Staff Facility: [facility] Ordering physician: Kwame Langley Study [place]: [facility] [place] [facility] Referring Physician: Kwame Langley Procedure consent obtained: Attending Physician: Heriberto Lyman MD No Admitting Physician: Heriberto Lyman MD Director Hardware: Clarence Whalen [facility] Interpreting physician: Narayan Becerra MD Indications Pre-op for vein harvesting. LE Veins Diagram Right Left The diagram is not intended for diagnosis. It is provided for reference only. Deep Veins: Right Left Location Compression Signal Compression Signal Common Femoral Yes Yes LE Vein Mapping Findings Great Saphenous : Right Left AP AP Diam DIam Location (mm) Branches Quality (mm) Branches Quality Sapheno Femoral Junction 8.6 8.4 GSV High Thigh 6 5.1 GSV Mid Thigh 4.8 4.1 GSV Low Thigh 4.8 4.6 GSV Knee 4.5 3.6 GSV High Calf 4.6 3 GSV Mid Calf 3.2 3 GSV Low Calf 3.1 3.7 GSV Ankle 2.9 3.5 Small Saphenous: Right Left AP AP Diam DIam Location (mm) Branches Quality (mm) Branches Quality SSV High Calf 1.9 1.8 SSV Mid Calf 1.9 2.9 SSV Low Calf 1.8 2.8 SSV Ankle 2.7 2.4 Physician Conclusions Summary: Right side: The right Great Saphenous Vein is patent with measurements as noted above. There is no evidence of deep vein thrombosis in the segments insonated. The right Small Saphenous Vein is patent with measurements as noted above Left side: The left Great Saphenous Vein is patent with measurements as noted above. There is no evidence of deep vein thrombosis in the segments insonated. The left Small Saphenous Vein is patent with measurements as noted above. * Event Display: VL Venous Duplex Mapping Lower Ext Bilat Authored Date: * Event Display: Cardiac Rhythm Strips Authored Date: Hospital Progress note * Aguilar Rodriguez RN: PERFORM, SIGN, VERIFY Event Display: Progress Note Hospital Authored Date: Patient: KATELYNN KANG Age: 52 years Sex: Male : 1970 Associated Diagnoses: None Author: Aguilar Rodriguez RN Findings Problem Related to Alteration in Cardiac Function (new) : Alteration in Cardiac Function/new 03/04/2023 1:00 EDT Alteration in Cardiac Status Related to Cardiac Surgery Goals & Outcomes, Cardiac Status Pt will resume/maintain adequate cardiac output, Pt will resume/maintain adequate hemodynamic status Cardiac Interventions Implemented Assess/monitor cardiac status, Assess/monitor neuro status, Assess/monitor respiratory status, Monitor & document daily weight BH Goals/Interventions, Cardiac Yes Cardiac, Problem Start 03/03/2023 3:47 Reviewed Plan with, Cardiac Status Patient Patient Progression, Cardiac Status Patient progressing according to plan . Knowledge Deficit : Knowledge Deficit/new 03/04/2023 1:00 EDT Knowledge Deficit related to: Disease process Goals & Outcomes, Knowledge Deficit Pt/caregiver is able to verbalize disease process, Pt/caregiver will state understanding of plan/goals of care, Pt/caregiver will state understanding of treatments Interventions, Knowledge Deficit Provide education using the teach back method, Provide written materials related to plan of care Goals/Interventions,Knowledge deficit Yes Knowledge Deficit, Problem Start 03/03/2023 3:48 Reviewed Plan with, Knowledge Deficit Patient Patient Progression, Knowledge Deficit Pt progressing according to plan . Nursing Data Cardiac Data. : Cardiac Data. 03/03/2023 21:14 EDT Cardiovascular Symptoms Edema present Nail Bed Color, Fingers [place] Nail Bed Color, Toes [place] Skin Temperature Upper Extremities Warm Skin Temperature Lower Extremities Warm Heart Sounds S1, S2 Heart Rhythm Regular Pacemaker No Cardiac Rhythm Normal sinus rhythm Capillary Refill < 3 seconds Radial Pulse, Left Normal Radial Pulse, Right Normal Dorsalis Pedis Pulse, Left Normal Dorsalis Pedis Pulse, Right Normal Homans' Sign Negative (Normal) Edema, Left Arm 1+ trace Edema, Right Arm 1+ trace Ankle, left 1+ trace Ankle, right 1+ trace lift team technician Yes Cardiovascular WNL except . Evaluation Patient is a/o x4. Patient denies having any pain or s/s of distress. Patient is SR on tele. He is aware he will be getting CABG on 03/11 and is calm and cooperative. . * Angela Arreguin RN: PERFORM, SIGN, VERIFY, MODIFY, SIGN, MODIFY, SIGN Event Display: Progress Note Hospital Authored Date: [id number] Patient: KATELYNN KANG Age: 52 years Sex: Male : 1970 Associated Diagnoses: None Author: Angela Arreguin RN Findings Problem Related to Alteration in Cardiac Function (new) : Alteration in Cardiac Function/new 03/03/2023 8:00 EDT Alteration in Cardiac Status Related to Cardiac Surgery Goals & Outcomes, Cardiac Status Pt will resume/maintain adequate cardiac output, Pt will resume/maintain adequate hemodynamic status Cardiac Interventions Implemented Assess/monitor cardiac status, Assess/monitor neuro status, Assess/monitor respiratory status, Assess for tolerance of IV infusions; verify rate & dose, Call/Report variances in ECG to provider, Document & Monitor O2 Sats; Administer O2 as ordered, Ensure adequate caloric intake, If no bowel movement in 3 days activate bowel regime, Monitor & document daily weight, Monitor anticoagulation values Goals/Interventions, Cardiac Yes Cardiac, Problem Start 03/03/2023 3:47 Reviewed Plan with, Cardiac Status Patient Patient Progression, Cardiac Status Patient progressing according to plan . Nursing Data Cardiac Data. : Cardiac Data. 03/03/2023 8:02 EDT Skin Temperature Upper Extremities Warm, Dry Skin Temperature Lower Extremities Warm, Dry Heart Sounds S1, S2 Pacemaker No Cardiac Rhythm Normal sinus rhythm Capillary Refill < 3 seconds Edema, Left Pretibial 1+ trace Edema, Right Pretibial 1+ trace Ankle, left 1+ trace Ankle, right 1+ trace Pedal, left 1+ trace Pedal, right 1+ trace lift team technician Yes Cardiovascular WNL except . Narrative/Incidental a&o x3. NSR on tele. ambulating independently in the room. pt is undergoing cabg work up at this time. echo was completed today. chest x ray was completed today; see cis for report. cardiac surgery RN came tp do pre op teaching but pt was down at ultrasound; so she left the materials and statedshe would call the pt. pt denied any smoking cessation education. will continue to monitor tele, labs, vitals. see cis for full biophysical assessment and plan.. * Douglas HENAO, Allison Alvarado: PERFORM Event Display: Progress Note Hospital Authored Date: [id number] Patient: ??KATELYNN KANG ? Age:??52 Years?Sex:??Male?:??1970?? Subjective Status post cardiac cath??found to have multivessel CAD Requiring surgery evaluation. ??Preop work-up??ordered Tentatively plan for CABG??next 03/11 Review of Systems Negative??except as above Past Medical History Active Problems??(9) Acquired deafness of left ear Chest pain DVT, lower extremity GERD (gastroesophageal reflux disease) History of CVA (cerebrovascular accident) without residual deficits Hx of Lyme disease Obese class I Paresthesias Tobacco dependence ? Past Surgical History Esophagogastroduodenoscopy and biopsy: 10/17/20 Colonoscopy incomplete, poor preparation0 Appendectomy Compartment syndrome decompression of lower limb Dental surgery Excisional biopsy left axilla Cervical fusion ? Objective Vital Signs?? Temperature: 98.8 DegF (03/03/23 07:36:00) Temperature Route: Temporal (03/03/23 07:36:00) Pulse Rate: 71 bpm (03/03/23 07:36:00) Respiratory Rate: 18 br/min (03/03/23 07:36:00) Systolic Blood Pressure:??149 mm Hg??High (03/03/23 07:36:00) Diastolic Blood Pressure:??85 mm Hg??High (03/03/23 07:36:00) Blood pressure sites: Arm, left (03/03/23 07:36:00) Mean Arterial Pressure: 106 mm Hg (03/03/23 07:36:00) Pulse Pressure: 64 mm Hg (03/03/23 07:36:00) Oxygen Saturation: 95 % (03/03/23 07:36:00) Mode of Delivery (Oxygen): Room air (03/03/23 07:36:00) Early Warning Score: 2 (03/03/23 07:54:49) ? Physical Exam Awake alert no acute distress Bilateral air entry no added sound S1-S2. ??No MRG Abdomen soft??NTND, bowel sound present No edema bilaterally, warm peripheries AAO??X3, no focal deficit _ Inpatient Medications Medications (15) Active SCHEDULED: (6) Aspirin 81 mg Chew Tablet (aspirin 81 mg oral tablet, chewable) ??81 mg, By Mouth, Daily Atorvastatin 80 mg Tablet (atorvastatin 80 mg oral tablet) ??80 mg, By Mouth, Daily Losartan 50 mg Tablet (losartan 50 mg oral tablet) ??50 mg, By Mouth, Daily Metoprolol 25mg Tablet (metoprolol 25 mg oral tablet) ??25 mg, By Mouth, 2 times a day NaCl 0.9% Flush 3ml (NaCL 0.9% Flush) ??3 mL, IV Push, Every 8 hours Tamsulosin 0.4 mg Capsule (tamsulosin 0.4 mg oral capsule) ??0.4 mg, By Mouth, Daily CONTINUOUS: (0) PRN: (9) Acetaminophen 325 mg Tablet (Acetaminophen Tablet) ??650 mg, By Mouth, Every 4 hours Albuterol 90mcg/Inhalation Inhaler HFA (Ventolin 90 mcg Inhaler) ??180 mcg 2 puffs, Inhalation, Every 4 hours Dextromethorphan-Guaifenesin 20 mg-200 mg/10 mL Liqu UD (Robitussin DM Liquid) ??10 mL, By Mouth, Every 4 hours Melatonin 3 mg Tablet (Melatonin Tablet) ??3 mg, By Mouth, Daily at bedtime NaCl 0.9% Flush 3ml (NaCL 0.9% Flush) ??3 mL, IV Push, Every 8 hours Nitroglycerin 0.4 mg Sublingual Tablet (nitroglycerin 0.4 mg sublingual tablet) ??0.4 mg, Sublingual, Every 5 minutes Polyethylene Glycol 17 Gm Powder (MiraLax Powder) ??17 Gm 1 pack/packet, By Mouth, Daily Senna 8.6 mg / Docusate 50 mg tablet (Docusate/Senna Tablet) ??1 tablet, By Mouth, 2 times a day Simethicone 80 mg Chewable Tablet (Simethicone Tablet) ??80 mg, Chew, 3 times a day ? Assessment/Plan Chief Complaint: galo pain ?? Diagnoses CAD (coronary artery disease) ??(I25.10) ?? The patient is a 52-year-old gentleman with history of hypertension, hyperlipidemia, previous history of stroke, Guillain [place] syndrome, who was having intermittent chest discomfort on exertion and underwent a stress test which showed inferior ischemia. The patient reports 4/10 chest pain since his stress test. He denies shortness of breath, nausea, vomiting, dizziness, diaphoresis, fevers, or chills. The patient underwent a left heart catheterization with coronary angiogram by Dr Lyman, todaywhich showed normal LMCA, 99% stenosis in the mid subsection of mid LAD which is a long lesion, 90% stenosis in the proximal subsection of OM1 and 80% stenosis in the proximal subsection of OM 2, 70%stenosis in the mid subsection of mid RCA and 95% stenosis in the proximal subsection of RPL 2. He is now admitted for multivessel CAD and cardiothoracic surgery consult. ? Multivessel CAD Hypertension Hyperlipidemia Stable angina intermittent chest discomfort on exertion and underwent a stress test which showed inferior ischemia. l??03/02??eft heart catheterization with coronary angiogram showed normal LMCA, 99% stenosis in the mid subsection of mid LAD which is a long lesion, 90% stenosis in the proximal subsection of OM1 and80% stenosis in the proximal subsection of OM 2, 70% stenosis in the mid subsection of mid RCA and 95% stenosis in the proximal subsection of RPL 2. A1c 5.6, LDL 98 ?? Plan Continue aspirin 81 mg daily Continue atorvastatin 80 mg daily at bedtime Continue losartan, metoprolol Nitroglycerin as needed for chest pain EKG for any acute chest pain CT surgery consulted??and recommendations appreciated??: Tentatively plan for CABG??next 03/11, patient would like to be discharged home??after preop work-up??completed Preop work-up: Echocardiogram,??carotid Doppler,??duplex vein mapping bilateral lower extremity, chest x-ray,??hepatitis panel, type and screen,??prealbumin, CRP, magnesium ?? BPH: Continue tamsulosin 0.4 mg daily. ?? Tobacco Use -Patient reports smoking 1 pack per day since age 6. -Counseled on benefits of quitting- he is in agreement. -Patient has tried different forms of nicotine replacement unsuccessfully and declines??NRT at thistime.? Diet:?? Cardiac. ?? DVT prophylaxis:?? Lovenox SC. ?? Code Status:?? Full. ?? OMN: Preop??CABG work-up, after the patient would like to be discharged home ?? Disclaimer: ??This note ??was accomplished with use of [employer] voice recognition software, which is prone to medical and other word misidentifications and grammatical errors. ??The physician does strive to identify and correct these, but some could still be present. ??Please do not hesitate to contact the physician for clarifications. ? Deprecated Cardiac rehabilitation treatment plan Progress note and attainment of goals (narrative) * Yoshi Deal: SIGN, MODIFY, PERFORM, SIGN, VERIFY Event Display: Cardiac Rehab Note Authored Date: [id number] Patient: KATELYNN KANG Age: 52 years Sex: Male : 1970 Associated Diagnoses: None Author: Yoshi Deal Diagnosis Cardiac Rehab Diagnosis: Pt will need a CABG Consult, will F/U once POC is determined.. * Deal, Christopher K: PERFORM Event Display: Cardiac Rehab Note Authored Date: [id number] Pt will need a CABG, possible DC and return for CABG next week will sign off and F/U Post OP. Laboratory * LIN Patricia S: TRANSCYoshi Weathers MD: VERIFY Rahul Murphy MD: SIGN Event Display: Result: Authored Date: [id number] Chest 2 Views Frontal and Lat REASON: Pre op CABG. COMPARISON: 08/06/2020, 11/29/2019. FINDINGS: LINES AND TUBES: None. LUNGS AND PLEURA: Clear lungs. Normal pulmonary vascularity. No pleural effusion. No pneumothorax. HEART, MEDIASTINUM AND JOCELYN: Heart is normal in size. Normal mediastinal and hilar contour. BONES AND SOFT TISSUES: No acute abnormality. Partially visualized cervical spinal fusion hardware, intact. IMPRESSION: No evidence of acute abnormality. I have personally reviewed the images and I agree with this report. WSN: [id number] Ordering Physician: Allison Cole Dictated By: Rahul Murphy MD Dictated Date/Time: 03/03/23 4:27 pm Reviewed By: Yoshi Ervin MD Signed By: Yoshi Ervin MD Signed Date/Time: 03/03/23 4:32 pm Transcribed By: KRIS Transcribed Date/Time: 03/03/23 4:[address] Chest WO contrast * LIN Patricia S: Jacquie Chen MDm: VERIFY Event Display: Result: Authored Date: [id number] CT Chest W/O Contrast INDICATION: Reason: Aneurysm; Clinical Question(s): Aneurysm; preoperative evaluation prior to CABG. TECHNIQUE: EKG gated helical CT scan of the chest without IV contrast, formatted in 3 planes. Weight-based protocol was performed using automatic exposure control. CTDIvol Body: 32.70 mGy, DLP Body: 1200 mGy*cm. COMPARISON: CTA chest dated 11/27/2010. FINDINGS: Materials Management Manager view findings, lines and tubes: None. Trachea and airways: Patent without evidence of tracheal or endobronchial lesion. Lungs and pleura: There are two 3 mm nodules in the left upper lobe and right lower lobe (images 17and 60 of series 205). There are a few scattered smaller nodules measuring 2 mm or less. No effusion or pneumothorax. Mediastinum and jocelyn: No mass or hematoma. No mediastinal or hilar lymphadenopathy. No esophageal abnormality. Enlarged thyroid gland contains nodules measuring up to 2.3 cm in right lower pole. Inferior aspect of the thyroid extends to the thoracic inlet. Heart: Heart is normal in size. No pericardial effusion. Severe coronary artery calcification. Aorta: No aortic aneurysm. Ascending aorta measures 3.5 x 3.5 cm. No significant atherosclerotic calcifications in the aorta. Pulmonary arteries: Normal caliber. Chest wall soft tissues: No acute abnormality. Diaphragm: Intact. Upper abdomen: No significant abnormality. Bones: No acute abnormality. Lower cervical spine fusion hardware partially imaged. IMPRESSION: 1. No aortic aneurysm or significant atherosclerotic wall calcifications. 2. Severe coronary calcifications. 3. Enlarged thyroid gland and nodules measuring up to 2.3 cm should be further evaluated with nonemergent ultrasound per ACR guidelines. 4. Lung nodules measuring up to 3 mm. If low risk for malignancy, no routine follow-up. If high risk, optional CT at 12 months. If unchanged, no further follow-up needed per Guidelines for Managementof Incidental Pulmonary Nodules Detected on CT Images: From the Fleischner Society 2017. An actionable message (Yellow) has been communicated via the [employer] system on 03/03/2023 11:02 PM, Message ID [id number]. WSN: [id number] Ordering Physician: Kwame Langley Dictated By: Everardo Sanchez MD Dictated Date/Time: 03/03/23 11:02 p Reviewed By: Everardo Sanchez MD Signed By: Everardo Sanchez MD Signed Date/Time: 03/03/23 11:02 pm Transcribed By: KRIS Transcribed Date/Time: 03/03/23 10:54 pm Patient Care team information Care Team Personnel Name: Fiona Sanchez RN Position: [facility] RN Member Role: Primary Care Nurse Name: Yoshi Bernardo RN Position: [facility] RN Member Role: Primary Care Nurse Name: Not on Staff, PCP Position: S Physician (General Medicine) Member Role: PCP Name: Alon Castillo RN Position: [facility] RN Member Role: Primary Care Nurse Name: Mercedes Jasmine RN Position: S RN Member Role: Primary Care Nurse Name: Charlene Davenport RN Position: S RN Member Role: Primary Care Nurse Name: Angela Arreguin RN Position: S RN Member Role: Primary Care Nurse Care Team Related Persons Name: SAM AIKEN Address: home [address] [place] [id number] Name: SAM KANG Address: [place] [address]
--- OUTSIDE RECORDS SUMMARY | 2024-09-08 14:43 | XMS_ITS | Continuity of Care Document ---
Author Organization [facility] Nany pura Address [address] [facility] [address]ne [address] [address]- Care Team Providers Care Prenatal Genetic Counselor Name Role Phone Not on Staff, PCP Primary Care Physician Unavail able Encounter [facility] Date(s): 04/07/23 - 04/14/23 [facility] [address] [place] [address]- Attending Physician: Not on Staff, Attending MD Referring Physician: Kwame Langley MD Allergies, Adverse Reactions, Alerts Substance Reaction [...] 03/26/23 15:53:00 EDT, Route to Pharmacy Electronically, [facility], Partial fill upon patient [...] By Mouth, Daily, Refill per PCP or Deli/Bakery Associate, # 30 tablet, 0 Refills, Maintenance, 03/04/23 10:31:00 EDT, Tablet, [facility], Partial fill upon patient request if the prescription is for a schedule II opioid drug., 1... Start Date: 03/04/23 Status: Ordered Benadryl Extra Strength 2%-0.1% topical cream 1 application, Topically, 3 times a day, # 30 Gm, 1 Refills, Maintenance, 04/07/23 11:41:00 EDT, Cream, [id number], Partial fill upon patient request if the prescription is for a schedule II opioid drug., 1 application Topically 3 times a day,... Start Date: 04/07/23 Status: Ordered clopidogrel 75 mg oral tablet 75 mg, 1, tablet, By Mouth, Daily, # 30 tablet, Refills 0, Tot. Refills 0, Maintenance, 03/26/23 15:53:00 EDT, Route to Pharmacy Electronically, [facility], Partial fill upon patient request if the prescription is for a schedule II opioi... Start Date: 03/26/23 Status: Ordered furosemide 20 mg oral tablet 20 mg, 1, tablet, By Mouth, Daily, # 3 tablet, Refills 0, Tot. Refills 0, Maintenance, 03/26/23 15:54:00 EDT, Route to Pharmacy Electronically, [facility], Partial fill upon patient request if the prescription is for a schedule II opioid... Start Date: 03/26/23 Stop Date: 03/29/23 Status: Ordered labs labs, See Instructions, # 1 each, Refills 0, Tot. Refills 0, Maintenance, CBC and BMP, 03/26/23 16:13:00 EDT, Supply Start Date: 03/26/23 Status: Ordered metoprolol 25 mg oral tablet 25 mg, 1, tablet, By Mouth, 2 times a day, Refill per PCP or Deli/Bakery Associate, # 60 tablet, Refills 0, Tot. Refills 0, Maintenance, 03/26/23 15:53:00 EDT, Route to Pharmacy Electronically, [facility], Partial fill upon patient request [...] Paresthesias Confirmed Active Tobacco dependence Confirmed Active Vital Signs Most recent to oldest [Reference Range]: 1 Height 173 cm (04/07/23 11:25 AM) Oxygen Saturation [94-100 %] 97 % (04/07/23 11:25 AM) Pulse Rate [55-90 bpm] 58 bpm (04/07/23 11:25 AM) Blood Pressure [90-138/55-84 mm Hg] 102/ 60mm Hg (04/07/23 11:25 AM) Respiratory Rate [16-30 br/min] 18 br/mi n (04/07/23 11:25 AM) Temperature [96.8-100.4 DegF] 98.1 DegF (04/07/23 11:25 AM) Mode of Delivery (Oxygen) Room air (04/07/23 11:25 AM) Blood pressure sites Arm, left (04/07/23 11:25 AM) Temperature Route Oral (04/07/23 11:25 AM) Social History Social History Type Response Smoking Status 5-9 cigarettes (betw een 1/4 to 1/2 pack)/day in last 30 days; Other: 8-9; entered on: 08/08/20 Sex Cardiac surgery Outpatient Note * Braulio BURKS, Arianna: PERFORM Event Display: Cardiac Surgery Note Office Authored Date: [id number] Patient: ??KATELYNN MONTIEL ? Age:??52 Years?Sex:??Male?:??1970?? History of Present Illness Katelynn Montiel??returns to the cardiac surgery office today??after calling in stating he has developed a rash??on his chest??and on his??saphenous vein harvest leg, the right leg.?? The patient underwent??quintuple coronary artery bypass grafting on March 17, 2023 by ??Kwame Langley.?? Today the patient states that??the rash??has broken out. ??He states he only uses??Dove soap;??he has not been using the??Vashe topical solution to wash with.?? The patient states that his??rash is itchy??and that he has not been able to sleep??in spite of the??medication he was given on discharge.?? The patient states he is very anxious about not smoking??and his will not??even let him have 1 cigarette??which is contributing to his anxiety.?? He states he has been on bupropion before??and it did not help??with his??anxiety??or desire to smoke.?? He has used Chantix before??without success. Physical Exam Vitals & Measurements T:??98.1?F?? HR:??58??(Peripheral)?? RR:??18?? BP:??102/60?? SpO2:??97%?? HT:??173??cm?? On physical examination??the patient's chest does have??a??rash small raised??pinpoint size??reddened papules.?? It is redder at the bottom of the incision.?? The same rashes on his leg around the saphenous vein harvest sites. ??Question if he is allergic to some type of soap even though its been quite a??bit of time since his surgery.?? There is no rash on his back his abdomen or his arms. Assessment/Plan Orders: diphenhydramine-zinc acetate topical, 1 application, Topically, 3 times a day, # 30 Gm, 1 Refills, Maintenance, 04/07/23 11:41:00 EDT, Cream, [id number], Partial fill upon patient request if the prescription is for a schedule II opioid drug., 1 application Topically 3 times a day,... I instructed the patient??to start on Benadryl 25 mg orally. ??Once in the morning and once at night??which should help him sleep, as well as help with the itch.?? I also gave the patient??a prescription??for topical Benadryl??and I explained to him he can use this on the skin just keep it away from the actual incision.?? If the oral and topical Benadryl??does not help the patient's??rash, he canreturn to the cardiac surgery office and??we will revisit the treatment. Medications acetaminophen 325 mg oral tablet, 650 mg= 2 tablet, By Mouth, Every 6 hours amiodarone 200 mg oral tablet, 200 mg, By Mouth, 2 times a day aspirin 81 mg oral tablet, chewable, 81 mg= 1 tablet, By Mouth, Daily atorvastatin 80 mg oral tablet, 80 mg= 1 tablet, By Mouth, Daily Benadryl Extra Strength 2%-0.1% topical cream, 1 application, Topically, 3 times a day, 1 refills clopidogrel 75 mg oral tablet, 75 mg= 1 tablet, By Mouth, Daily furosemide 20 mg oral tablet, 20 mg= 1 tablet, By Mouth, Daily labs, See Instructions metoprolol 25 mg oral tablet, 25 mg= 1 tablet, By Mouth, 2 times a day tamsulosin 0.4 mg oral capsule, 0.4 mg= 1 capsule, By Mouth, Daily Ventolin HFA 108 mcg/inh inhalation aerosol with adapter Walker, See Instructions Walker, See Instructions Allergies Adhesive Bandage??(Cardiac electrode site, Soft tissue swelling, Plastic adhesive tape) Bee Stings??(Anaphylaxis) Valium??(violent) Zithromax??(Wheezing, swelling) codeine??(wheezing) Patient Care team information Care Team Personnel Name: Fiona Sanchez RN Position: [facility] RN Member Role: Primary Care Nurse Name: Ene Horan RN Position: [facility] RN Supv Member Role: Primary Care Nurse Name: Bienvenido Herrmann RN Position: [facility] RN Member Role: Primary Care Nurse Name: Louisa Hyman RN Position: [facility] RN Supv Member Role: Primary Care Nurse Name: Cynthia Corbin RN Position: [facility] RN Member Role: Primary Care Nurse Name: Yoshi Bernardo RN Position: [facility] SN RN Member Role: Primary Care Nurse Name: Not on Staff, PCP Position: [facility] Physician (General Medicine) Member Role: PCP Name: Alon Castillo RN Position: [facility] RN Member Role: Primary Care Nurse Name: Mercedes Jasmine RN Position: [facility] RN Member Role: Primary Care Nurse Name: Charlene Davenport RN Position: S RN Member Role: Primary Care Nurse Name: Angela Arreguin RN Position: [facility] RN Member Role: Primary Care Nurse Name: Irlanda Hernandez RN Position: [facility] RN Member Role: Primary Care Nurse Name: Radha Kessler Position: [facility] RN Member Role: Primary Care Nurse Care Team Related Persons Name: SAM AIKEN Address: [address] [place] [address] Name: SAM MONTIEL Address: [address] [place] [address]
--- OUTSIDE RECORDS SUMMARY | 2024-09-08 14:43 | XMS_ITS | Continuity of Care Document ---
Author Organization [facility] Address [address] [place] [address]- Care Team Providers Care Paper Cone Machine Tender Name Role Phone Livier Mota MD Primary Care Physician Encounter [facility] Date(s): 05/19/21 - 06/18/21 [facility] [address] [place] [address]- Allergies, Adverse Reactions, Alerts Substance Reaction Severity [...] 1:15:00 EDT Start Date: 08/07/20 Status: Ordered naproxen 500 mg oral tablet See Instructions, TAKE 1 TABLET BY MOUTH TWICE A DAY WITH FOOD, # 60 tablet, 0 Refills, Acute, [facility], 172, cm, 04/01/21 11:19:00 EDT, Height, 100, [...] disease(Confirmed) Active Paresthesias(Confirmed) Active Tobacco dependence(Confirmed) Active Social History Social History Type Response Smoking Status 5-9 cigarettes (betw een 1/4 to 1/2 pack)/day in last 30 days; Other: 8-9; entered on: 08/08/20 Sex
--- OUTSIDE RECORDS SUMMARY | 2024-09-08 14:43 | XMS_ITS | Continuity of Care Document ---
Author Organization [facility] Address [address] [place] [address]- Care Team Providers Care Basket Filler Name Role Phone Salome Parker MD Primary Care Physician Encounter [facility] [place] Date(s): 04/16/20 - 07/31/20 [facility] [address] [place] [address] [facility] Discharge Disposition: A-D/C Home Attending Physician: Eric Boles MD Admitting Physician: Eric Boles MD Referring Physician: Salome Parker MD Allergies, Adverse Reactions, Alerts Substance Reaction Severity Status codeine wheezing Active Zithromax swelling Active Valium violent Active Bee Stings Active Immunizations Given and Recorded Vaccine Date Status Refusal Reason Pneumococcal Vaccine (oldterm) 1 12/09/08 Given 1Result Comment: lot #[id number] exp date 14 mar 2010 Problem List Condition Effective Dates Status Health Status Inform ant Paresthesias(Confirmed) Active
--- OUTSIDE RECORDS SUMMARY | 2024-09-08 14:43 | XMS_ITS | Continuity of Care Document ---
Author Organization [facility] Address [address] [place] [address]- Care Team Providers Care Contracting Officer Name Role Phone Salome Parker MD Primary Care Physician [phone] Encounter [facility] Date(s): 08/06/20 - 08/07/[address] [address] [facility] Discharge Disposition: A-D/C AMA Attending Physician: Debbie HENAO, Magui Champion Admitting Physician: Robert Burns MD Referring Physician: Not on Staff, Referring [...] 1:15:00 EDT Start Date: 08/07/20 Status: Ordered omeprazole 40 mg oral enteric [...] disease)(Confirmed) Active Paresthesias(Confirmed) Active Tobacco dependence(Confirmed) Active Results Radiology Reports * Exam Date Time Procedure Performing Provider Status 08/06/20 9:47 PM Chest 2 Views Frontal and Lat Albertina You; Auth (Verified) Notes: (Chest 2 Views Frontal and Lat) Reason For Exam: Chest Pain;Other: RESULT: Chest 2 Views Frontal and Lat Chest 2 Views Frontal and Lat Hx of Present Illness: pt presents to ed with 2 days of increasing chest pressure radiating into left arm and shouler and into back. denies SOB NV. pain worse when laying down but otherwise non reproducible.; Reason: Other:; Chest Pain; Clinical Question(s): Other: COMPARISON: 11/29/2019. FINDINGS: LINES AND TUBES: None. LUNGS AND PLEURA: Clear lungs. Normal pulmonary vascularity. No pleural effusion. No pneumothorax. HEART, MEDIASTINUM AND MUNA: Heart is normal in size. Normal mediastinal and hilar contour. BONES AND SOFT TISSUES: No acute abnormality. Stable lower cervical fusion hardware. IMPRESSION: No acute abnormality. WSN: [id number] Ordering Physician: Samanta Lopez Dictated By: Yoshi Ferrara MD Dictated Date/Time: 08/06/20 9:56 pm Reviewed By: Yoshi Ferrara MD Signed By: Yoshi Ferrara MD Signed Date/Time: 08/06/20 9:56 pm Transcribed By: KRIS Transcribed Date/Time: 08/06/20 9:56 pm Vital Signs Most recent to oldest [Reference Range]: 1 2 3 Height 173 cm (08/07/20 10:54 AM) 173 cm (08/07/20 7:30 AM) 173 cm (08/07/20 4:15 AM) Weight 95.5 kg (08/07/20 3:28 AM) 95.5 kg (08/06/20 7:17 PM) 95.5 kg (08/06/20 7:15 PM) Oxygen Saturation [94-100 %] 98 % (08/07/20 10:54 AM) 94 % (08/07/20 7:30 AM) 97 % (08/07/20 4:15 AM) Pulse Rate [55-90 bpm] 54 bpm *L* (08/07/20 10:54 AM) 58 bpm (08/07/20 7:30 AM) 64 bpm (08/07/20 4:15 AM) Body Mass Index [18.5-24.99] 31.91 *>HHI* (08/07/20 3:28 AM) Blood Pressure [90-138/55-84 mm Hg] 116/72mm Hg (08/07/20 10:54 AM) 120/76mm Hg (08/07/20 7:30 AM) 131/74mm Hg (08/07/20 4:15 AM) Respiratory Rate [16-30 br/min] 18 br/min (08/07/20 10:54 AM) 20 br/min (08/07/20 7:30 AM) 18 br/min (08/07/20 7:30 AM) Temperature [96.8-100.4 DegF] 97.7 DegF (08/07/20 10:54 AM) 98.1 DegF (08/07/20 7:30 AM) 97.5 DegF (08/07/20 4:15 AM) Mode of Delivery (Oxygen) Room air (08/07/20 10:54 AM) Room air (08/07/20 7:30 AM) Room air (08/07/20 4:15 AM) Blood pressure sites Arm, left (08/07/20 10:54 AM) Arm, left (08/07/20 7:30 AM) Arm, left (08/07/20 4:15 AM) Temperature Route Oral (08/07/20 10:54 AM) Oral (08/07/20 7:30 AM) Oral (08/07/20 4:15 AM) Dry Weight 95.5 kg (08/07/20 3:28 AM) Weight Obtained Via Bed scale (08/07/20 3:28 AM) Dry Weight Obtained Via Bed scale (08/07/20 3:28 AM) Social History Social History Type Response Smoking Status 5-9 cigarettes (betw een 1/4 to 1/2 pack)/day in last 30 days; Other: 8-9; entered on: 08/08/20 Sex
--- OUTSIDE RECORDS SUMMARY | 2024-09-08 14:43 | XMS_ITS | Continuity of Care Document ---
Author Organization [facility] Address [address] [place] [id number]- Care Team Providers Care Blurb Writer Name Role Phone Not on Staff, PCP Primary Care Physician Unavail able [place] [facility] [place] - 05/15/[address] [address]- Discharge Disposition: A-D/C Walkout Attending Physician: Not on Staff, Attending MD Admitting Physician: Not on Staff, Admitting MD Referring Physician: Not on Staff, Referring [...] 03/26/23 15:53:00 EDT, Route to Pharmacy Electronically, [facility], Partial fill upon patient [...] By Mouth, Daily, Refill per PCP or Sterile Process Coordinator, # 30 tablet, 0 Refills, Maintenance, 03/04/23 10:31:00 EDT, Tablet, [facility], Partial fill upon patient request if the prescription is for a schedule II opioid drug., 1... Start Date: 03/04/23 Status: Ordered Benadryl Extra Strength 2%-0.1% topical cream 1 application, Topically, 3 times a day, # 30 Gm, 1 Refills, Maintenance, 04/07/23 11:41:00 EDT, Cream, [facility]acy #[id number], Partial fill upon patient request if the prescription is for a schedule II opioid drug., 1 application Topically 3 times a day,... Start Date: 04/07/23 Status: Ordered clopidogrel 75 mg oral tablet 75 mg, 1, tablet, By Mouth, Daily, # 30 tablet, Refills 0, Tot. Refills 0, Maintenance, 03/26/23 15:53:00 EDT, Route to Pharmacy Electronically, [facility], Partial fill upon patient request if the prescription is for a schedule II opioi... Start Date: 03/26/23 Status: Ordered furosemide 20 mg oral tablet 20 mg, 1, tablet, By Mouth, Daily, # 3 tablet, Refills 0, Tot. Refills 0, Maintenance, 03/26/23 15:54:00 EDT, Route to Pharmacy Electronically, [facility], Partial fill upon patient request if the prescription is for a schedule II opioid... Start Date: 03/26/23 Stop Date: 03/29/23 Status: Ordered gabapentin 100 mg oral capsule 200 mg, 2, capsule, By Mouth, 3 times a day, # 180 capsule, Refills 0, Tot. Refills 0, Maintenance,04/22/23 16:38:00 EDT, Route to Pharmacy Electronically, [facility]/pharmacy #[id number], Partial fill upon patient request [...] times a day, Refill per PCP or Sterile Process Coordinator, # 60 tablet, Refills 0, Tot. Refills 0, Maintenance, 03/26/23 15:53:00 EDT, Route to Pharmacy Electronically, [facility], Partial fill upon patient [...] Exam Date Time Procedure Performing Provider Status 05/15/23 5:43 PM Chest 2 Views Frontal and Lat Luis Alberto Lao; Alayna (Verified) Notes: (Chest 2 Views Frontal and Lat) Reason For Exam: Chest Pain;Other: RESULT: Chest 2 Views Frontal and Lat Chest 2 Views Frontal and Lat Hx of Present Illness: having chest pain constant for three days, was on family vacation so sufferdthrough the pain, feeling slight shortness of breath. pain radiates to shoulder back. nonreproducable. started smoking 2 weeks ago. CAGB march 17. complicated; Reason: Other:; Chest Pain; Clinical Question(s): Other: COMPARISON: Multiple priors including 04/12/2023. FINDINGS: LINES AND TUBES: None. LUNGS AND PLEURA: Clear lungs. Normal pulmonary vascularity. No pleural effusion. No pneumothorax. HEART, MEDIASTINUM AND MUNA: Heart is normal in size. Postsurgical changes consistent with prior CABG. No acute change in the mediastinal contours. BONES AND SOFT TISSUES: No acute abnormality. Intact sternal hardware. Stable cervical spine hardware. Surgical anchor in the proximal right humerus. IMPRESSION: No acute abnormality. WSN: [id number] Ordering Physician: Belkys Moncada Dictated By: Hugh Hoff MD Dictated Date/Time: 05/15/23 5:49 pm Reviewed By: Hugh Hoff MD Signed By: Hugh Hoff MD Signed Date/Time: 05/15/23 5:49 pm Transcribed By: KRIS Transcribed Date/Time: 05/15/23 5:46 pm Vital Signs Most recent to oldest [Reference Range]: 1 2 3 Height 173 cm (05/15/23 4:53 PM) Weight 90 kg (05/15/23 4:53 PM) Oxygen Saturation [94-100 %] 98 % (05/15/23 6:00 PM) 99 % (05/15/23 4:53 PM) 100 % (05/15/23 4:46 PM) Pulse Rate [55-90 bpm] 63 bpm (05/15/23 6:00 PM) 72 bpm (05/15/23 4:53 PM) 77 bpm (05/15/23 4:46 PM) Body Mass Index [18.5-24.99 kg/m2] 30.07 kg/m2 *>HHI* (05/15/23 4:53 PM) Blood Pressure [90-138/55-84 mm Hg] 150/94mm Hg *H* (05/15/23 6:00 PM) 142/92mm Hg *H* (05/15/23 4:53 PM) Respiratory Rate [16-30 br/min] 16 br/min (05/15/23 6:00 PM) Temperature [96.8-100.4 DegF] 98.3 DegF (05/15/23 6:00 PM) 97.8 DegF (05/15/23 4:53 PM) Mode of Delivery (Oxygen) Room air (05/15/23 6:00 PM) Room air (05/15/23 4:46 PM) Blood pressure sites Arm, left (05/15/23 6:00 PM) Arm, right (05/15/23 4:53 PM) Temperature Route Oral (05/15/23 6:00 PM) Oral (05/15/23 4:53 PM) Dry Weight 90 kg (05/15/23 4:53 PM) Weight Obtained Via Standing scale (05/15/23 4:53 PM) Dry Weight Obtained Via Standing scale (05/15/23 4:53 PM) Social History Social History Type Response Smoking Status 5-9 cigarettes (betw een 1/4 to 1/2 pack)/day in last 30 days; Other: 8-9; entered on: 08/08/20 Sex Patient Care team information Care Team Personnel Name: Fiona Sanchez RN Position: [facility] RN Member Role: Primary Care Nurse Name: Ene Horan RN Position: [facility] RN Supv Member Role: Primary Care Nurse Name: Bienvenido Herrmann RN Position: [facility] RN Member Role: Primary Care Nurse Name: Louisa Hyman RN Position: [facility] RN Supv Member Role: Primary Care Nurse Name: Cynthia Corbin RN Position: [facility] RN Member Role: Primary Care Nurse Name: Yoshi Bernardo RN Position: [facility] SN RN Member Role: Primary Care Nurse Name: Not on Staff, PCP Position: [facility] Physician (General Medicine) Member Role: PCP Name: Alon Castillo RN Position: S RN Member Role: Primary Care Nurse Name: Mercedes Jasmine RN Position: [facility] RN Member Role: Primary Care Nurse Name: Charlene Davenport RN Position: S RN Member Role: Primary Care Nurse Name: Angela Arreguin RN Position: S RN Member Role: Primary Care Nurse Name: Irlanda Hernandez RN Position: S RN Member Role: Primary Care Nurse Care Team Related Persons Name: SAM AIKEN Address: [address] [place] [address] Name: SAM KANG Address: [address] [place] [address]
--- OUTSIDE RECORDS SUMMARY | 2024-09-08 14:43 | XMS_ITS | Continuity of Care Document ---
Author Organization [facility] ter Address [address] [place] [phone]- Care Team Providers Care Bed And Breakfast Operator Name Role Phone Salome Parker MD Primary Care Physician [place] [facility] [place] - 03/12/[address] [address] Discharge Disposition: A-D/C Home Attending Physician: Sandro Yousif MD Admitting Physician: Sandro Yousif MD Referring Physician: Sandro Yousif MD Allergies, Adverse Reactions, Alerts Substance Reaction [...] Range]: 1 2 3 Height 172 cm (03/12/21 2:22 PM) 172 cm (03/04/21 4:46 PM) Weight 97.7 kg (03/12/21 2:22 PM) 100 kg (03/04/21 4:46 PM) Oxygen Saturation [94-100 %] 95 % (03/12/21 5:30 PM) 100 % (03/12/21 5:15 PM) 100 % (03/12/21 5:00 PM) Pulse Rate [55-90 bpm] 71 bpm (03/12/21 2:22 PM) Body Mass Index [18.5-24.99] 33.02 *>HHI* (03/12/21 2:22 PM) 33.8 *>HHI* (03/04/21 4:46 PM) Blood Pressure [90-138/55-84 mm Hg] 152/85mm Hg *H* (03/12/21 5:30 PM) 148/92mm Hg *H* (03/12/21 5:15 PM) 147/88mm Hg *H* (03/12/21 5:00 PM) Respiratory Rate [16-30 br/min] 13 br/min *L* (03/12/21 5:30 PM) 16 br/min (03/12/21 5:15 PM) 15 br/min *L* (03/12/21 5:00 PM) Temperature [96.8-100.4 DegF] 98 DegF (03/12/21 5:30 PM) 97.3 DegF (03/12/21 5:00 PM) 97.7 DegF (03/12/21 2:22 PM) Liters per Minute 5 L/min (03/12/21 5:00 PM) Mode of Delivery (Oxygen) Room air (03/12/21 5:30 PM) Simple face mask (03/12/21 5:00 PM) Room air (03/12/21 2:22 PM) Blood pressure sites Arm, right (03/12/21 5:00 PM) Arm, left (5/26/21 2:22 PM) Temperature Route Temporal (03/12/21 5:30 PM) Temporal (03/12/21 5:00 PM) Temporal (03/12/21 2:22 PM) Dry Weight 100 kg (03/04/21 4:46 PM) Weight Obtained Via Standing scale (03/12/21 2:22 PM) Patient/family stated (03/04/21 4:46 PM) Dry Weight Obtained Via Patient/family s tated (03/04/21 4:46 PM) Social History Social History Type Response Smoking Status 5-9 cigarettes (betw een 1/4 to 1/2 pack)/day in last 30 days; Other: 8-9; entered on: 08/08/20 Sex
--- OUTSIDE RECORDS SUMMARY | 2024-09-08 14:43 | XMS_ITS | Continuity of Care Document ---
Author Organization [facility] ter Address [address] [place] [id number]- Care Team Providers Care Entry Specialist Name Role Phone Svetlana HENAO, Livier Primary Care Physician En[place] [facility] [place](s): 04/11/21 - 11/12/[address] [address] Attending Physician: Ailyn Carlin NP Admitting Physician: Ailyn Carlin NP Referring Physician: Ailyn Carlin NP Allergies, Adverse Reactions, Alerts Substance Reaction Severity [...] 60 tablet, 0 Refills, Acute, [id number], 172, cm, 04/01/21 11:19:00 EDT, Height, 100, [...] a schedule II opioid drug., 172, cm, 06/01/21 8:... Start Date: 03/18/21 Status: Ordered SUMAtriptan [...]
--- OUTSIDE RECORDS SUMMARY | 2024-09-08 14:43 | XMS_ITS | Continuity of Care Document ---
Author Organization [facility] Address [address] [place] [address]- Care Team Providers Care Business Solutions Director Name Role Phone Not on Staff, PCP Primary Care Physician Unavail able Encounter [facility] Date(s): 05/08/24 - 05/08/[address] [address]- Encounter Diagnosis Anaphylaxis(Final) - 05/08/24 Discharge Disposition: A-D/C Home Attending Physician: Tej Colunga MD Admitting Physician: Tej Colunga MD Referring Physician: Not on Staff, Referring [...] 03/26/23 15:53:00 EDT, Route to Pharmacy Electronically, [facility], Partial fill upon patient request [...] By Mouth, Daily, Refill per PCP or Drywall Contractor, # 30 tablet, 0 Refills, Maintenance, 03/04/23 10:31:00 EDT, Tablet, [facility], Partial fill upon patient request if the prescription is for a schedule II opioid drug., 1... Start Date: 03/04/23 Status: Ordered Benadryl 25 mg oral capsule 1 capsule = 25 mg, By Mouth, 3 times a day, PRN for allergy symptoms, for 5 days, # 24 capsule, 0 Refills, Acute 05/13/24 14:50:00 EDT, 05/08/24 14:50:00 EDT, Capsule, [facility]/pharmacy #[id number], Partial fill upon patient request if the prescription is for a... Start Date: 05/08/24 Stop Date: 05/13/24 Status: Ordered Benadryl Extra Strength 2%-0.1% topical cream 1 application, Topically, 3 times a day, # 30 Gm, 1 Refills, Maintenance, 04/07/23 11:41:00 EDT, Cream, [facility]/pharmacy #[id number], Partial fill upon patient [...] Refills, Maintenance, 05/21/23 14:22:00 EDT, ER Tablet, [facility]... Start Date: 05/21/23 Status: Ordered clopidogrel 75 mg oral tablet 75 mg, 1, tablet, By Mouth, Daily, # 30 tablet, Refills 0, Tot. Refills 0, Maintenance, 03/26/23 15:53:00 EDT, Route to Pharmacy Electronically, [facility], Partial fill upon patient request if the prescription is for a schedule II opioi... Start Date: 03/26/23 Status: Ordered EPINEPHrine 1 mg/mL injectable kit = 1 mg, Intramuscular, Once, # 2 kit, 0 Refills, Soft Stop, 05/08/24 14:47:00 EDT, [facility]/pharmacy #[id number], Partial fill upon patient request if the prescription is for a schedule II opioid drug., 172, cm, 05/08/24 13:17:00 EDT, Height, 102, kg, 05/08/24 1... Start Date: 05/08/24 Status: Ordered famotidine 20 mg oral tablet 20 mg, 1, tablet, By Mouth, 2 times a day, # 10 tablet, Refills 0, Tot. Refills 0, Maintenance, 05/08/24 14:50:00 EDT, Route to Pharmacy Electronically, [facility]/pharmacy #[id number], Partial fill upon patient request if the prescription is for a schedule II opi... Start Date: 05/08/24 Stop Date: 05/13/24 Status: Ordered gabapentin 100 mg oral capsule 200 mg, 2, capsule, By Mouth, 3 times a day, # 180 capsule, Refills 0, Tot. Refills 0, Maintenance,04/22/23 16:38:00 EDT, Route to Pharmacy Electronically, [facility]/pharmacy #[id number], Partial fill upon patient [...] times a day, Refill per PCP or Drywall Contractor, # 60 tablet, Refills 0, Tot. Refills 0, Maintenance, 03/26/23 15:53:00 EDT, Route to Pharmacy Electronically, [facility], Partial fill upon patient request if the... Start Date: 03/26/23 Status: Ordered predniSONE 50 mg oral tablet 1 tablet = 50 mg, By Mouth, Daily, for 4 days, # 4 tablet, 0 Refills, Acute 05/12/24 14:50:00 EDT, 05/08/24 14:50:00 EDT, Tablet, [id number], Partial fill upon patient request if the prescription is for a schedule II opioid drug., 172, cm, ... Start Date: 05/08/24 Stop Date: 05/12/24 Status: Ordered tamsulosin 0.4 mg oral capsule [...] Range]: 1 2 3 Height 172 cm (05/08/24 1:17 PM) 172 cm (05/08/24 10:09 AM) Weight 102 kg (05/08/24 10:09 AM) Oxygen Saturation [94-100 %] 100 % (05/08/24 2:00 PM) 100 % (05/08/24 1:31 PM) 98 % (05/08/24 1:17 PM) Pulse Rate [55-90 bpm] 58 bpm (05/08/24 2:00 PM) 55 bpm (05/08/24 1:31 PM) 56 bpm (05/08/24 1:17 PM) Blood Pressure [90-138/55-84 mm Hg] 134/86mm Hg (05/08/24 2:00 PM) 136/87mm Hg (05/08/24 1:31 PM) 147/91mm Hg *H* (05/08/24 1:17 PM) Respiratory Rate [16-30 br/min] 18 br/min (05/08/24 2:00 PM) 17 br/min (05/08/24 1:31 PM) 16 br/min (05/08/24 1:17 PM) Temperature [96.8-100.4 DegF] 98.2 DegF (05/08/24 10:09 AM) Mode of Delivery (Oxygen) Room air (05/08/24 2:00 PM) Room air (05/08/24 1:31 PM) Room air (05/08/24 1:17 PM) Blood pressure sites Arm, left (05/08/24 2:00 PM) Arm, left (05/08/24 1:31 PM) Arm, left (05/08/24 1:17 PM) Temperature Route Oral (05/08/24 10:09 AM) Dry Weight 102 kg (05/08/24 10:09 AM) Weight Obtained Via Standing scale (05/08/24 10:09 AM) Dry Weight Obtained Via Standing scale (05/08/24 10:09 AM) Social History Social History Type Response Smoking Status 5-9 cigarettes (betw een 1/4 to 1/2 pack)/day in last 30 days; Other: 8-9; entered on: 08/08/20 Sex EKG study * Event Display: ECG 12-Lead Authored Date: Please click on pdf link to open report * Event Display: ECG 12-Lead Authored Date: Ventricular Rate: 63 BPM Atrial Rate: 63 BPM P-R Interval: 198 ms QRS Duration: 114 ms Q-T Interval: 398 ms QTC Calculation(Bazett): 407 ms P Ogema: 54 degrees R Ogema: 24 degrees T Ogema: 50 degrees Normal sinus rhythm Incomplete right bundle branch block Nonspecific T wave abnormality Abnormal ECG When compared with ECG of 15-MAY-2023 16:54, Nonspecific T wave abnormality no longer evident in Inferior leads Confirmed by DEIDRE RIZVI MD ([id number]) on 05/08/2024 7:59:47 PM [place]: DEIDRE RIZVI MD Note * Tej Colunga MD: PERFORM Event Display: Patient Education Leaflets Authored Date: [id number] Allergic Reaction: Anaphylaxis ?? Allergic Reaction: Anaphylaxis - Video Anaphylaxis is a potentially life-threatening allergic reaction. Common causes of anaphylaxis are allergies to penicillin, bee stings, aspirin, eggs, peanuts, and nuts. In this video, you'll find outother possible causes, what preventive steps you can take to avoid anaphylaxis, and why emergency treatment is needed. To view the video go to this web address: [email or web address] Or, scan this QR code with your smart phone Last Reviewed Date: 2021 ?? [employer]. All rights reserved. This information is not intended as a substitute for professional medical care. Always follow your healthcare professional's instructions. ?? * Tej Colunga MD: PERFORM Event Display: Patient Education Leaflets Authored Date: [id number] Anaphylaxis ?? [id number] Anaphylaxis Anaphylaxis is a severe allergic reaction that can be life-threatening. This reaction can happen lyn few minutes, or a few hours after exposure to what you are allergic to (allergen). The symptoms of an anaphylactic reaction may seem like other allergic reactions at first. Don't letthe early mild symptoms, such as a rash, hives, and itching, mislead you.??Your reaction??can get worse very quickly and become life- threatening within minutes. Severe symptoms of anaphylaxis include: ??? Trouble swallowing, feeling like your throat is closing ??? Trouble breathing, coughing, or wheezing ??? Chest pain or tightness ??? Cool, moist, or pale (blue in color) skin ??? Hoarse voice or trouble speaking ??? Upset stomach (nausea), vomiting, diarrhea, stomach cramps, or pain ??? Feelingfaint or lightheaded ??? Fast heart rate ??? Low blood pressure ??? Feeling dizzy or confused ??? Becoming very drowsy, poorly responsive, or having trouble waking up ??? Seizure ??? Swelling of the eyes, mouth, face, or tongue ??? Anxiety ??? Hives, rash, or itchy skin Sometimes the cause of the reaction may be obvious if you have a known allergy. If you know the cause of your reaction, prevent exposure to the allergen in the future. If you don't know the cause, follow up with your healthcare provider for special testing to find out what you're allergic to. To help find out an unknown allergen, remember: ??? When the reaction started ??? What you were doing at the time or just before that ??? Any new products or contacts Almost anything can cause a reaction. You may not even be aware that you had contact with an allergen. Allergies to dust, pollens, and animals rarely cause anaphylaxis. Here are some common causes ofanaphylaxis: ??? Foods such as??shellfish, peanuts, tree nuts, milk products, wheat, eggs; also, colorings, flavorings, additives ??? Insect bites or stings such as??bees, wasps, hornets, or fire ants ??? Medicines such as??penicillin, sulfa, aspirin, ibuprofen; any medicine can cause a reaction ??? Latex such as in gloves, clothes, toys, balloons, or some tapes; some people allergic to latex may also have problems with foods like bananas, avocados, kiwi, papaya, or chestnuts If you're exposed to the same substance again, you may have the same or a more severe reaction. Home care Once you're stabilized in the emergency room and it's safe for you to go home, watch for any worsening symptoms. Call 911 if symptoms get worse. You may need to be treated again. Medicines Injectable epinephrine One of the dai tools in treating anaphylaxis is early use of epinephrine. If you had a severe allergic or anaphylactic reaction, the healthcare provider may prescribe a self-injectable epinephrine kit with 2 epinephrine injectors. If this was prescribed, always carry both epinephrine injectors. It can be lifesaving. Epinephrine can help stop the progression of an allergic reaction. Its effects are brief. So after you use the medicine, it's still very important to call 911 right away and get to an??emergency??room. When to use injectable epinephrine Use the epinephrine if you have any of these symptoms, or as advised by your healthcare provider: ??? Swelling in your mouth or throat? Trouble speaking or swallowing ??? Trouble breathing ???Feeling faint, low blood pressure, or becoming drowsy or poorly responsive ??? Rash that gets worse Ask your healthcare provider or pharmacist to teach you how to use your injectable epinephrine. ??? Injectors are designed to be injected into the outside of the upper thigh. ??? Be careful not to stick your fingers or hand with the needle. ??? You can inject it through pants, but make sure notto inject it into the seam of the pants. ??? Don't pull it out right away. Try to hold the needle in place for 10 seconds. ??? Massage the spot for a few seconds or as advised by your healthcare provider. ??? If you're injecting it in someone else or a child, try to hold them or their leg still. Ifthey jerk or yank their legs away as you're doing it, it can cause a cut on their leg. You may feel shaky, jittery, nervous, and anxious after the injection. Although it's hard, try to relax. This is a side effect of the epinephrine. It should stop after a few minutes.?? Important ??? Call 911 or go to the??emergency room??immediately after using the epinephrine. Its effect willwear off, and you may have a second reaction. This could even happen hours later. ??? If your symptoms start to return 5 to 15 minutes after using your epinephrine injector and help hasn't arrived yet, use the second injector. ??? Never knowingly eat, use, or expose yourself to the substance that caused the anaphylactic reaction. Nothing is foolproof, including the injectable epinephrine. Other medicines The healthcare provider may??prescribe medicine to ease swelling, itching, and pain. Follow the provider's instructions when using this medicine.? Oral diphenhydramine is an antihistamine available at drug and grocery stores. Unless a prescription antihistamine was given, diphenhydramine may be used to reduce itching if large areas of the skin are involved.??It may make you sleepy, so be careful using it in the daytime or when going to school, working, or driving.??Talk with your provider before using antihistamines if you have glaucoma, thyroid disease, high blood pressure, heart disease, breathing problems, or if you have trouble peeing due to an enlarged prostate. ??? Don't use diphenhydramine cream on your skin because in some people it can cause a further reaction. ??? You may use [id number] acetaminophen or ibuprofen to control pain, unless another pain medicine was prescribed. Ask your healthcare provider what medicines are safe for you, especially if you have heart, kidney, or liver disease, are taking blood thinners, are at risk for gastrointestinal ulcers or bleeding, or have high blood pressure. ??? If you were prescribed any medicines to prevent symptoms from returning, be sure to take them exactly as directed. General care ??? Rest at home for the next 24 hours. ??? Don't use tobacco or drink alcohol. These may make your symptoms worse. ??? If you know what caused your reaction today, stay away from that in the future. Let your family members, friends, and personal healthcare provider know about your allergic reaction. ??? If your allergy was to food, learn how to read food labels so you can check for that ingredient. If a product doesn't have a label, it's best to stay away from it. ??? Consider carrying an ID card or getting a medical alert bracelet to inform medical staff of your condition in??case you can't tell them. ??? Tell all your healthcare providers that you had an anaphylactic reaction. Make sure the information is added to your medical records. ?? Follow-up care Follow up with your healthcare provider or as advised if you aren't improving over the next 1 to 2 days. ?? Call 911 Call 911 if any of these occur: ??? Trouble breathing or swallowing, wheezing ??? Hoarse voice or trouble speaking ??? Chest pain or tightness ??? Confusion ??? Very drowsy or trouble awakening ??? Fainting or loss of consciousness ??? Fast heart rate ??? Low blood pressure ??? Vomiting blood, or large amounts of blood in stool ??? Seizure ??? Swelling in the eyes, mouth, face, or tongue ??? Dizziness or weakness ??? Cool, moist, or pale (blue in color) skin ??? Nausea, vomiting, diarrhea, stomach cramps, or belly (abdominal) pain ?? When to get medical advice Call your healthcare provider right away if any of these occur: ??? Your symptoms get worse ??? Newsymptoms ??? Symptoms don't go away or come back ?? Last Reviewed Date: 2022 ?? [id number] [employer]. All rights reserved. This information is not intended as a substitute for professional medical care. Always follow your healthcare professional's instructions. ?? Patient Care team information Care Team Personnel Name: Fiona Sanchez RN Position: S RN Member Role: Primary Care Nurse Name: Bienvenido Herrmann RN Position: S RN Member Role: Primary Care Nurse Name: Yoshi Bernardo RN Position: [facility] SN RN Member Role: Primary Care Nurse Name: Not on Staff, PCP Position: [facility] Physician (General Medicine) Member Role: PCP Name: Alon Castillo RN Position: [facility] RN Member Role: Primary Care Nurse Name: Mercedes Jasmine RN Position: [facility] RN Member Role: Primary Care Nurse Name: Angela Arreguin RN Position: [facility] RN Member Role: Primary Care Nurse Name: Irlanda Hernandez RN Position: [facility] RN Member Role: Primary Care Nurse Care Team Related Persons Name: SAM AIKEN Address: [address] [place] [address] Name: NOMI HEMPHILL Name: SAM KANG Address: [address] [place] [address]
--- OUTSIDE RECORDS SUMMARY | 2024-09-08 14:43 | XMS_ITS | Continuity of Care Document ---
Author Organization [facility] Address [address] [place] [address] [place]ne [place] [address]- Care Team Providers Care Unit Educator Name Role Phone Not on Staff, PCP Primary Care Physician Unavail able Encounter [facility] Date(s): 04/12/23 - 05/12/23 [facility] [address] [place] [id number] Allergies, Adverse Reactions, Alerts Substance Reaction Severity [...] 03/26/23 15:53:00 EDT, Route to Pharmacy Electronically, [facility], Partial fill upon patient request [...] By Mouth, Daily, Refill per PCP or Ski Patrol, # 30 tablet, 0 Refills, Maintenance, 03/04/23 10:31:00 EDT, Tablet, [facility], Partial fill upon patient request if the prescription is for a schedule II opioid drug., 1... Start Date: 03/04/23 Status: Ordered Benadryl Extra Strength 2%-0.1% topical cream 1 application, Topically, 3 times a day, # 30 Gm, 1 Refills, Maintenance, 04/07/23 11:41:00 EDT, Cream, [facility]/pharmacy #[id number], Partial fill upon patient request if the prescription is for a schedule II opioid drug., 1 application Topically 3 times a day,... Start Date: 04/07/23 Status: Ordered clopidogrel 75 mg oral tablet 75 mg, 1, tablet, By Mouth, Daily, # 30 tablet, Refills 0, Tot. Refills 0, Maintenance, 03/26/23 15:53:00 EDT, Route to Pharmacy Electronically, [facility], Partial fill upon patient request if the prescription is for a schedule II opioi... Start Date: 03/26/23 Status: Ordered furosemide 20 mg oral tablet 20 mg, 1, tablet, By Mouth, Daily, # 3 tablet, Refills 0, Tot. Refills 0, Maintenance, 03/26/23 15:54:00 EDT, Route to Pharmacy Electronically, [facility] 3, Partial fill upon patient request if the prescription is for a schedule II opioid... Start Date: 03/26/23 Stop Date: 03/29/23 Status: Ordered gabapentin 100 mg oral capsule 200 mg, 2, capsule, By Mouth, 3 times a day, # 180 capsule, Refills 0, Tot. Refills 0, Maintenance,04/22/23 16:38:00 EDT, [id number] fill upon patient request [...] times a day, Refill per PCP or [employer], # 60 tablet, Refills 0, Tot. Refills 0, Maintenance, 03/26/23 15:53:00 EDT, Route to Pharmacy Electronically, [facility], Partial fill upon patient request [...] Care Nurse Name: Ene Horan RN Position: S RN Supv Member Role: Primary Care Nurse Name: Bienvenido Herrmann RN Position: S RN Member Role: Primary Care Nurse Name: Louisa Hyman RN Position: S RN Supv Member Role: Primary Care Nurse Name: Cynthia Corbin RN Position: [facility] RN Member Role: Primary Care Nurse Name: Yoshi Bernardo RN Position: [facility] SN RN Member Role: Primary Care Nurse Name: Not on Staff, PCP Position: [facility] Physician (General Medicine) Member Role: PCP Name: Alon Castillo RN Position: [facility] RN Member Role: Primary Care Nurse Name: Mercedes Jasmine RN Position: [facility] RN Member Role: Primary Care Nurse Name: Charlene Davenport RN Position: [facility] RN Member Role: Primary Care Nurse Name: Angela Arreguin RN Position: [facility] RN Member Role: Primary Care Nurse Name: Irlanda Hernandez RN Position: [facility] RN Member Role: Primary Care Nurse Care Team Related Persons Name: SAM AIKEN Address: [address] [place] [address] Name: SAM KANG Address: [address] [place] [address]
--- OUTSIDE RECORDS SUMMARY | 2024-09-08 14:43 | XMS_ITS | Continuity of Care Document ---
Author Organization [facility] Address [address] [place] [address]- Care Team Providers Care Inbound Customer Service Agent Name Role Phone Salome Parker MD Primary Care Physician Encounter [facility] Date(s): 04/16/20 - 05/16/20 [facility] [address] [place] [address]- [facility] Attending Physician: Ramu Dumont Admitting Physician: Ramu Dumont Referring Physician: Ramu Dumont Allergies, Adverse Reactions, Alerts Substance Reaction Severity Status codeine wheezing Active Zithromax swelling Active Valium violent Active Bee Stings Active Immunizations Given and Recorded Vaccine Date Status Refusal Reason Pneumococcal Vaccine (oldterm) 1 12/09/08 Given 1Result Comment: lot #[id number] exp date 14 mar 2010 Problem List Condition Effective Dates Status Health Status Inform ant Paresthesias(Confirmed) Active
--- OUTSIDE RECORDS SUMMARY | 2024-09-08 14:43 | XMS_ITS | Continuity of Care Document ---
Author Organization [facility] ter Address [address] [place] [id number]- Care Team Providers Care Pool Nurse Name Role Phone Not on Staff, PCP Primary Care Physician Unavail able Encounter [facility] Date(s): 03/17/23 - 03/26/[address] [id number] Discharge Disposition: A-D/C Home Attending Physician: Kwame Langley MD Admitting Physician: Kwame Langley MD Referring Physician: Yoshi Marques MD Allergies, [...] 03/26/23 15:53:00 EDT, Route to Pharmacy Electronically, [facility], Partial fill upon patient [...] By Mouth, Daily, Refill per PCP or Clerk Of Court, # 30 tablet, 0 Refills, Maintenance, 03/04/23 10:31:00 EDT, Tablet, [facility], Partial fill upon patient request if the prescription is for a schedule II opioid drug., 1... Start Date: 03/04/23 Status: Ordered baclofen 10 mg oral tablet 10 mg, Tablet, By Mouth, 03/26/23 15:00:00 EDT Start Date: 03/26/23 Stop Date: 03/26/23 Status: Completed clopidogrel 75 mg oral tablet 75 mg, 1, tablet, By Mouth, Daily, # 30 tablet, Refills 0, Tot. Refills 0, Maintenance, 03/26/23 15:53:00 EDT, Route to Pharmacy Electronically, [facility], Partial fill upon patient request if the prescription is for a schedule II opioi... Start Date: 03/26/23 Status: Ordered furosemide 20 mg oral tablet 20 mg, 1, tablet, By Mouth, Daily, # 3 tablet, Refills 0, Tot. Refills 0, Maintenance, 03/26/23 15:54:00 EDT, Route to Pharmacy Electronically, [facility], Partial fill upon patient request if the prescription is for a schedule II opioid... Start Date: 03/26/23 Stop Date: 03/29/23 Status: Ordered Gabapentin Capsule 300 mg, Capsule, By Mouth, If Creatinine LESS than 1.5, 03/26/23 15:00:00 EDT Start Date: 03/26/23 Stop Date: 03/26/23 Status: Completed hydrOXYzine hydrochloride 10 mg oral tablet 2 tablet = 20 mg, By Mouth, 2 times a day, PRN Anxiety, # 14 tablet, 0 Refills, Acute 04/09/23 21:00:00 EDT, 03/26/23 15:55:00 EDT, Tablet, [facility], Partial fill upon patient requestif the [...] times a day, Refill per PCP or Clerk Of Court, # 60 tablet, Refills 0, Tot. Refills 0, Maintenance, 03/26/23 15:53:00 EDT, Route to Pharmacy Electronically, [facility], Partial fill upon patient request if the... Start Date: 03/26/23 Status: Ordered MiraLax oral powder for reconstitution = 17 Gm, By Mouth, Daily, PRN Constipation, dissolve in water before taking, # 255 Gm, 0 Refills, Acute 04/04/23 22:22:00 EDT, 03/04/23 10:31:00 EDT, REC Powder, [facility], Partial fill upon patient [...] Exam Date Time Procedure Performing Provider Status 03/24/23 10:37 AM Chest Portable Richy Matias (Verified) Notes: (Chest Portable) Reason For Exam: S/P Cardiac Surgery RESULT: Chest Portable Chest Portable performed upright at 10:35 AM Reason: S P Cardiac Surgery; Clinical Question(s): Pleural Effusion COMPARISON: Multiple prior chest x-rays, the most recent of which is dated 03/22/2023. FINDINGS: LINES AND TUBES: Interval removal of the right IJ central venous sheath. LUNGS AND PLEURA: Improving aeration is seen of both lungs. Persistent retrocardiac left basilar density. Minimal blunting of the left costophrenic angle. No pneumothorax. HEART, MEDIASTINUM AND MUNA: Status post median sternotomy and likely CABG. The cardiac and mediastinal contours appear within normal limits. BONES AND SOFT TISSUES: No acute abnormality. IMPRESSION: Improving aeration of both lungs with decreasing vascular congestion. Unchanged retrocardiac left basilar density likely reflecting atelectasis. Minimal blunting of the left costophrenic angle suggesting trace left pleural effusion. WSN: [id number] Ordering Physician: Martin Frank Dictated By: Kelly Jacques MD Dictated Date/Time: 03/24/23 1:21 pm Reviewed By: Kelly Jacques MD Signed By: Kelly Jacques MD Signed Date/Time: 03/24/23 1:21 pm Transcribed By: KRIS Transcribed Date/Time: 03/24/23 1:20 pm * Exam Date Time Procedure Performing Provider Status 03/22/23 5:30 AM Chest 2 Views Frontal and Lat Pancho Tejeda (Verified) Notes: (Chest 2 Views Frontal and Lat) Reason For Exam: Follow-Up Pleural Effusion RESULT: Chest 2 Views Frontal and Lat Chest 2 Views Frontal and Lat Reason: Follow-Up Pleural Effusion COMPARISON: Multiple priors, most recent 03/20/2023. FINDINGS: LINES AND TUBES: Right IJ catheter sheath in place. LUNGS AND PLEURA: Increased interstitial markings and faint alveolar opacities. Increased small left pleural effusion. No pneumothorax. HEART, MEDIASTINUM AND MUNA: Moderate prominence of the cardiac silhouette, unchanged. Status post CABG. Normal mediastinal and hilar contour. BONES AND SOFT TISSUES: Status post median sternotomy. IMPRESSION: Increased mild interstitial and alveolar pulmonary edema. Slightly increased small left pleural effusion. I have personally reviewed the images and I agree with this report. WSN: [id number] Ordering Physician: Ayala Larsen Dictated By: Caroline Tejeda DO Dictated Date/Time: 03/22/23 9:14 am Reviewed By: Alex Singh MD Signed By: Alex Singh MD Signed Date/Time: 03/22/23 9:19 am Transcribed By: KRIS Transcribed Date/Time: 03/22/23 9:07 am * Exam Date Time Procedure Performing Provider Status 03/20/23 6:02 AM Chest Portable Patricia Fermin; Auth (Selvin ified) Notes: (Chest Portable) Reason For Exam: Shortness of Breath RESULT: Chest Portable Chest Portable Reason: Shortness of Breath COMPARISON: March 19, 2023 at 4:55 AM FINDINGS: LINES AND TUBES: The [place] scan catheter has been removed. Right IJ sheath remains in place with tip overlying the proximal SVC. The mediastinal drain and left chest tube are unchanged. Intra-aortic balloon pump marker no longer seen. LUNGS AND PLEURA: Lung volumes are low. Progression of a right upper lobe atelectasis with shift of the minor fissureand volume loss. Persistent left basilar retrocardiac opacity.. Normal pulmonary vascularity. Possible small pleural effusions. No pneumothorax. HEART, MEDIASTINUM AND MUNA: Slightly increased widening of the cardiomediastinal silhouette, likely related to low lung volumes. BONES AND SOFT TISSUES: No acute abnormality. Status post median sternotomy and cervical spine fusion. IMPRESSION: Persistent left basilar atelectasis/infiltrate. Slight worsening of right upper lobe atelectasis.. WSN: [id number] Ordering Physician: Shauna Wilson Dictated By: Nelson Guzmán MD Dictated Date/Time: 03/20/23 9:08 am Reviewed By: Nelson Guzmán MD Signed By: Nelson Guzmán MD Signed Date/Time: 03/20/23 9:08 am Transcribed By: KRIS Transcribed Date/Time: 03/20/23 9:04 am * Exam Date Time Procedure Performing Provider Status 03/19/23 5:58 AM Chest Portable Loida Frost; Auth ( Verified) Notes: (Chest Portable) Reason For Exam: S/P Cardiac Surgery RESULT: Chest Portable Chest Portable Reason: S P Cardiac Surgery COMPARISON: 03/18/2023. FINDINGS: LINES AND TUBES: Unchanged position of the right internal jugular vein approach [place]-Wilberto catheter, mediastinal drains, and left chest tube. Intra-aortic balloon pump marker is approximately 3 cm below the michael, in the mid descending aorta. Top of the aortic arch is not clearly delineated due to superior mediastinal widening. The endotracheal and enteric tubes have been removed. LUNGS AND PLEURA: Lung volumes are low. There are opacities in bilateral cardiophrenic angles. Normal pulmonary vascularity. Possible small pleural effusions. No pneumothorax. HEART, MEDIASTINUM AND MUNA: Slightly increased widening of the cardiomediastinal silhouette, likely related to low lung volumes. BONES AND SOFT TISSUES: No acute abnormality. Status post median sternotomy and cervical spine fusion. IMPRESSION: Small pleural effusions. Bilateral cardiophrenic angle opacities likely represent atelectasis and/or pneumonia. WSN: [id number] Ordering Physician: Rupa Sage Dictated By: Everardo Sanchez MD Dictated Date/Time: 03/19/23 8:54 am Reviewed By: Everardo Sanchez MD Signed By: Everardo Sanchez MD Signed Date/Time: 03/19/23 8:54 am Transcribed By: KRIS Transcribed Date/Time: 03/19/23 8:50 am * Exam Date Time Procedure Performing Provider Status 03/18/23 6:59 AM Chest Portable Vonnie Reyes; Auth (Verified) Notes: (Chest Portable) Reason For Exam: S/P Cardiac Surgery RESULT: Chest Portable Chest Portable Reason: S P Cardiac Surgery; Clinical Question(s): Other:; Cardiac Tamponade; Special Instructions:Post Op Day 1 COMPARISON: 03/17/2023 FINDINGS: LINES AND TUBES: Endotracheal tube terminates above the michael. Subdiaphragmatic gastric tube. Mediastinal and chesttubes are unchanged. Pulmonary arterial catheter tip is in the area of main pulmonary artery towards the left pulmonary artery. There is a intraoperative balloon pump radiopaque marker projecting below the level of the aortic arch at the area of the descending thoracic aorta. LUNGS AND PLEURA: Mild perihilar atelectasis. Markedly improved atelectasis in the left upper lung persists. Trace pleural fluid on the left. No pneumothorax. HEART, MEDIASTINUM AND MUNA: Unchanged cardiomediastinal postsurgical changes and mild cardiomegaly. Normal mediastinal and hilar contour. BONES AND SOFT TISSUES: No osseous interval change. IMPRESSION: Improving right upper lung atelectasis. Similar position of support lines and tubes. WSN: [id number] Ordering Physician: Alon Robison Dictated By: Luly Santos MD Dictated Date/Time: 03/18/23 8:37 am Reviewed By: Luly Santos MD Signed By: Luly Santos MD Signed Date/Time: 03/18/23 8:37 am Transcribed By: KRIS Transcribed Date/Time: 03/18/23 8:30 am * Exam Date Time Procedure Performing Provider Status 03/17/23 10:22 PM Chest Portable Gurinder Mcintyre; Auth (V erified) Notes: (Chest Portable) Reason For Exam: S/P Cardiac Surgery RESULT: Chest Portable Chest Portable Reason: S P Cardiac Surgery; Clinical Question(s): Cardiac Tamponade; COMPARISON: Earlier same day FINDINGS: LINES AND TUBES: Endotracheal tube tip approximately 2.5 cm above the michael. Enteric tube with side-port at the GE junction. Right IJ central venous catheter has been advanced with tip near the main pulmonary outflow tract. IABP marker appears unchanged approximately 1 cm below the level of the michael. Left apically directed chest tube. Mediastinal drains. LUNGS AND PLEURA: Unchanged right upper lobe collapse. The lungs are otherwise well aerated. No pleural effusion. No pneumothorax. HEART, MEDIASTINUM AND MUNA: Unchanged cardiomediastinal silhouette. BONES AND SOFT TISSUES: No acute abnormality. Status post median sternotomy and ACDF. IMPRESSION: Support lines as above. Recommend advancing the enteric tube. Unchanged right upper lobe collapse. I have personally reviewed the images and I agree with this report. WSN: [id number] Ordering Physician: Alon Robison Dictated By: Hans Irizarry DO Dictated Date/Time: 03/17/23 11:21 p Reviewed By: Andrew Fernandez MD Signed By: Andrew Fernandez MD Signed Date/Time: 03/17/23 11:26 pm Transcribed By: KRIS Transcribed Date/Time: 03/17/23 11:16 pm * Exam Date Time Procedure Performing Provider Status 03/17/23 9:19 PM Chest Portable Gurinder Mcintyre; Auth (Ve rified) Notes: (Chest Portable) Reason For Exam: Counts: Sponges/Sharps/Instruments Protocol;Counts: Sponges/Sharps/Instruments Protocol RESULT: Chest Portable Chest Portable supine Reason: Counts: Sponges Sharps Instruments Protocol; Special Instructions: Pt is in [facility] OR 17. Per discussion with the scrub nurse, the count was over for needles. No missing object. COMPARISON: Chest radiograph 03/03/2023.. FINDINGS: LINES AND TUBES: Endotracheal tube in place, tip approximately 2.8 cm above the michael. Enteric tube in place, tip below the diaphragm. Right IJ central venous catheter tip projects to the right of midline in the upper mediastinum, possibly within the SVC. Left apically directed chest tube. Midline mediastinal drain. Metallic marker for the IABP projects at approximately at the level of the michael 4.5 cm below the aortic arch. LUNGS AND PLEURA: Right upper lobe collapse. The left lung volumes. The right lower lobe and right middle lobe are normally aerated. No pleural effusion. No pneumothorax. HEART, MEDIASTINUM AND MUNA: Postsurgical changes of the cardiomediastinal silhouette following recent median sternotomy. No unexpected radiopaque foreign body identified. BONES AND SOFT TISSUES: Status post median sternotomy. Postsurgical changes of the lower cervical spine following prior ACDF. IMPRESSION: 1. Lines and tubes as described. No unexpected radiopaque foreign body identified. 2. Postsurgical changes of the chest following median sternotomy. 3. Right upper lobe collapse. WSN: [id number] Ordering Physician: Kwame Langley Dictated By: Jose Daniel Orellana MD Dictated Date/Time: 03/17/23 9:38 pm Reviewed By: Jose Daniel Orellana MD Signed By: Jose Daniel Orellana MD Signed Date/Time: 03/17/23 9:38 pm Transcribed By: KRIS Transcribed Date/Time: 03/17/23 9:29 pm Vital Signs Most recent to oldest [Reference Range]: 1 2 3 4 Height 173 cm (03/26/23 3:19 PM) 173 cm (03/26/23 11:42 AM) 173 cm (03/26/23 8:34 AM) Weight 95.5 kg (03/25/23 6:07 AM) 108.6 kg (03/21/23 5:53 AM) 107.1 kg (03/20/23 5:00 AM) Oxygen Saturation [94-100 %] 99 % (03/26/23 3:19 PM) 94 % (03/26/23 11:42 AM) 96 % (03/26/23 8:34 AM) Pulse Rate [55-90 bpm] 80 bpm (03/26/23 3:19 PM) 74 bpm (03/26/23 11:42 AM) 75 bpm (03/26/23 8:34 AM) Body Mass Index [18.5-24.99 kg/m2] 33.85 kg/m2 *>HHI* (03/17/23 9:10 AM) Blood Pressure [90-138/55-84 mm Hg] 139/75mm Hg *H* (03/26/23 3:19 PM) 127/66mm Hg (03/26/23 11:42 AM) 144/75mm Hg *H* (03/26/23 8:34 AM) Respiratory Rate [16-30 br/min] 18 br/min (03/26/23 3:52 PM) 18 br/min (03/26/23 3:19 PM) 18 br/min (03/26/23 2:52 PM) 18 br/min (03/26/23 2:52 PM) Temperature [96.8-100.4 DegF] 97.9 DegF (03/26/23 3:19 PM) 97.9 DegF (03/26/23 11:42 AM) 97.6 DegF (03/26/23 8:34 AM) Liters per Minute 1 L/min (03/26/23 3:19 PM) 2 L/min (03/26/23 11:42 AM) 2 L/min (03/26/23 8:34 AM) Mode of Delivery (Oxygen) Nasal cannula (03/26/23 3:19 PM) Nasal cannula (03/26/23 11:42 AM) Nasal cannula (03/26/23 8:34 AM) Blood pressure sites Arm, right (03/26/23 3:19 PM) Arm, left (03/26/23 11:42 AM) Arm, left (03/26/23 8:34 AM) Temperature Route Oral (03/26/23 3:19 PM) Oral (03/26/23 11:42 AM) Oral (03/26/23 8:34 AM) Dry Weight 93.7 kg (03/26/23 6:10 AM) 96.6 kg (03/24/23 6:58 AM) 101.3 kg (03/17/23 9:10 AM) Weight Obtained Via Standing scale (03/21/23 5:53 AM) Bed scale (03/20/23 5:00 AM) Bed scale (03/17/23 11:00 PM) Dry Weight Obtained Via Bed scale (03/26/23 6:10 AM) Standing scale (03/17/23 9:10 AM) Social History Social History Type Response Smoking Status 5-9 cigarettes (betw een 1/4 to 1/2 pack)/day in last 30 days; Other: 8-9; entered on: 08/08/20 Sex History and physical note * Event Display: History and Physical Hospital Authored Date: Note * Rosalba Truong RN: PERFORM Event Display: Discharge/Transfer Note Hospital Authored Date: [id number] Nursing Discharge Note Entered On: 03/26/2023 17:36 EDT Performed On: 03/26/2023 17:36 EDT by Rosalba Truong RN Nursing Discharge Note 2 Discharge Time : 03/26/2023 17:36 EDT Discharge Level of Care at Discharge : Home/Senior Care/Foster Care Patient Left Unit Via : Wheelchair Patient Accompanied Off Unit with : Responsible adult DC Instructions Provided & Signed by Pt : Yes Patient Understands D/C Instructions : Yes Patient Instructions Discharge Signed : Yes Did Pt have Specialty Bed or Wound Vac : No Rosalba Truong RN - 03/26/2023 17:36 EDT * Shauna Wilson NP: PERFORM, SIGN, VERIFY Event Display: Discharge/Transfer Note Hospital Authored Date: [id number] Patient: KATELYNN KANG Age: 52 years Sex: Male : 1970 Associated Diagnoses: None Author: Shauna Wilson NP Discharge Information Chief Complaint/Reason for Admission progressive chest pain on exertion for several weeks to months, worsening more recently Principal Discharge Diagnosis CAD (coronary artery disease): Present on admission - yes. Secondary Discharge Diagnoses CAD (coronary artery disease): Present on admission - yes. Procedures DATE: 03/17/23 PREOPERATIVE DIAGNOSES: Coronary artery occlusive disease POSTOPERATIVE DIAGNOSES: Coronary artery occlusive disease PROCEDURE: Coronary artery bypass grafting x5 with a pedicled left internal mammary artery graft toLAD, right greater saphenous vein graft to PDA, PLV, OM2, left radial artery graft to the OM1 branch of the left circumflex, pedicled harvesting of the left internal mammary artery, endoscopic harvesting of the right and left greater saphenous vein, endoscopic harvesting left radial artery, insertion of right femoral intraaortic ballon pump, modifier 22 (>4 hours additional time on bypass) epiaortic ultrasound . Allergies Allergic Reactions (Selected) Severity Not Documented Adhesive Bandage- Plastic adhesive tape, soft tissue swelling and cardiac electrode site. Bee Stings- Anaphylaxis. Codeine- Wheezing. Zithromax- Wheezing and swelling. Nonallergic Reactions (Selected) Severity Not Documented Valium- Violent. Discharge condition: good Compared to admission: improved Functional Status: ambulatory Discharge Disposition Home: self care. Home care with: VNA (refused VNA). Discharge Summary distribution: Route to attending, referring, and primary care provider. Route to: Anika Kasper RN. Route to: Kwame Langley MD. Route to: Christa Hendrickson RN. Route to: Yoshi Marques MD Discharge Date 03/26/2023 Admission Date 03/17/2023 Code Status Full Resuscitation. Draft of Summary Completed by: Shauna Wilson NP. Hospital Course The patient is a 52-year-old male with PMH of HTN, HLD, h/o stroke (no deficit), h/o lyme w/ GBS who presented with dizziness, progressive chest pain on exertion for several weeks to months, worsening more recently. Outpatient stress test showed reversible ischemic defects. He underwent cardiac catheterization that revealed Severe LAD lesion 99%, 90% OM1, 80% OM2, 70% RCA, 95% PLV. The patient presented for CABG, On 03/17/2023 the patient underwent the following: S/P CABG x 5 (MONTANEZ to LAD, GSVG to RPDA, GSVG to PLV, GSVG to OM2, Left Radial to OM1) Endoscopic Vessel [place], Placement of IABP, Sternal Plating. POD # 8 URGEON: Dr. Langley EMR TRAINER: Dr. Marques EF 60-65 % Impression and Plan NEUROLOGIC: -- Pain management PRN per protocol -- hydroxyzine for much anxiety with effect, send home with prescription and then follow up with PCP --trazodone 100mg HS for sleep, d/c at discharge CARDIOVASCULAR: CAD s/p CABGx5 Post operative hypotension due to vasoplegia and blood loss - resolved Cardiogenic shock after cardiac surgery - resolved s/p Intraop IABP, removed 6/2 -weaned off pressors 6/2 -Core Measures: - ASA, Beta-kalina, Statin: 80 mg Atorvastatin at bedtime. -Atrial fibrillation Prophylaxis- Amiodarone PO for 30 days -Plavix 75 mg PO for 1 year RESPIRATORY: Right upper lobe collapse - resolved Smoker/COPD Extubated on POD1 to [place], remained hypoxic and transitioned to HFNC , CXR Increased mild interstitial and alveolar pulmonary edema. Slightly increased small left pleuraleffusion. -now on room air, oxygen 96% with ambulation -diuresis 40mg IVP Lasix completed, home on discharge with with 20mg lasix x4 days, 2kg+ above dry weight , repeat labs next week -refuses nicotine patch, no productive cough or SOB GI: -- cardiac diet -- GI Prophylaxis: PPI- Protonix 40 mg Po daily. RENAL -- Baseline Cr: 0.9 today 0.8 -- Lasix 40mg IVP TID-completed,, home on discharge with with 20mg lasix x4 days, 2kg+ above dry weight , repeat labs next week INFECTIOUS DISEASE: -- SCIP prophylactic abx. --Leukocytosis WBC 24 > 18, afebrile monitor, no productive cough HEMATOLOGY -- Acute blood loss anemia secondary to cardiothoracic surgery -- Accept H/H > 05/07: Trend CBC. today H/H 07/16 6//-transfused X1 unit PRBC ENDOCRINE: -- As per post operative cardiac surgery insulin protocol -- Stress hyperglycemia; Nondiabetic. -- Hgb A1C 5.6% DVT Prophylaxis: -- SCD's, -- Lovenox 40 mg daily, d/c at discharge -- Discontinue pharmacologic DVT prophylaxis at discharge. -- Teds t to continue until resumes preoperative activity level. SKIN -- Keep sternal incision covered with Aquacel Ag remove on POD # 5. -- Graft harvest sites with bebo wrap- remove after 48 hours and every shift for inspection. 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 provided walker prescription. will have cardiac surgery office f/u with patient closely. Patient seen with and plan reviewed with Dr Finney Prescription Given this visit:Prescriptions Clopidogrel (clopidogrel 75 mg oral tablet) 1 tablet = 75 mg, By Mouth, Daily, # 30 tablet, 0 Refills, [place] [address] [id number] Next Dose: Durable Medical Equipment (Walker) , # 1 each, walker Next Dose: Furosemide (furosemide 20 mg oral tablet) 1 tablet = 20 mg, By Mouth, Daily, # 3 tablet, 0 Refills, [place] [address] [id number] Next Dose: HydrOXYzine (hydrOXYzine hydrochloride 10 mg oral tablet) 2 tablet = 20 mg, By Mouth, 2 times a day, # 14 tablet, 0 Refills, [place] [address] [id number] Next Dose: Metoprolol (metoprolol 25 mg oral tablet) 1 tablet = 25 mg, By Mouth, 2 times a day, # 60 tablet, 0 Refills, Refill per PCP or Clerk Of Court, [address] [address] [phone] Next Dose: Miscellaneous Rx (labs) , # 1 each, 0 Refills, CBC and BMP Next Dose: amiODARONE (amiodarone 200 mg oral tablet) 200 mg, By Mouth, 2 times a day, # 60 tablet, 0 Refills, [address] [address] [id number] Next Dose: Patient Instructions Given:No qualifying data available Education Given:COPD and Heart Disease Cardiac Surgery Discharge Instructions Patient Follow-up:Added Follow Up Time Frame Comments Follow up, 1 Week Next week any [facility] for a lab draw Yoshi Marques 2 to 5 weeks make an appointment with your mask layout designer Kwame Langley 2 to 3 weeks the office will call you with an appointment PCP Not on Staff establish a PCP and follow-up with an appointment [facility] 04/19/2023 13:30 Please call [phone] if you cannot keep this appt. Significant Results Results: Vital signs : VITAL SIGNS SECTION 03/26/2023 15:19 EDT Early Warning Score 5.00 03/26/2023 15:19 EDT Temperature 97.9 DegF Temperature Route Oral Pulse Rate 80 bpm Respiratory Rate 18 br/min Systolic Blood Pressure 139 mm Hg H Diastolic Blood Pressure 75 mm Hg Blood pressure sites Arm, right Mean Arterial Pressure 96 mm Hg Pulse Pressure 64 mm Hg Oxygen Saturation 99 % Liters per Minute 1 L/min Mode of Delivery (Oxygen) Nasal cannula , Laboratory : LABORATORY 03/26/2023 7:08 EDT WBC 19.4 k/mm3 H RBC 3.16 m/mm3 L Hgb 9.6 Gm/dL L Hct 29.7 % L MCV 94.0 femtoliters MCH 30.4 pg MCHC 32.3 g/dL L Platelet Count 527 k/mm3 H RDW-SD 52.9 femtoliters H MPV 8.4 femtoliters L Nucleated RBC (Automated) 0.6 #/100 WBC'S Abs. NRBC 0.1 k/mm3 Sodium 136 mmol/L Potassium 3.9 mmol/L Chloride 93 mmol/L L Bicarbonate Level 31 mmol/L H Anion Gap 12 BUN 26 mg/dL H Creatinine-Blood 1.1 mg/dL Estimated GFR Creatinine 84 ML/MIN/1.73 M2 Magnesium 2.3 mg/dL . Neurological: intact Pulmonary/Lungs: decreased but clear Cardiovascular: NSR 80 Gastrointestinal: Abdomen (non-tender, non-distended). Extremities: Pulses + Edema (both, 0) Surgical Wounds: Chest dry and intact, Extremities dry and intact. Discharge Plan Diet/Activity/Patient Education/Follow Up Follow Up with: [facility] 04/19/2023 1:30 PM Please call [phone] if you cannot keep this appt.; PCP Not on Staff establish a PCP and follow-up with an appointment ; Kwame Saadat Within 2 to 3 weeks the office will call you with an appointment ; Yoshi Marques Within 2 to5 weeks make an appointment with your mask layout designer ; Follow up, 1 Week Within Next week any [facility] for a lab draw . MEDICATION LIST (Selected) Prescriptions Prescribed MiraLax oral powder for reconstitution: = 17 Gm, By Mouth, Daily, PRN Constipation, dissolve in water before taking, # 255 Gm, 0 Refills, Acute 04/04/23 22:22:00 EDT, 03/04/23 10:31:00 EDT, REC Powder, [facility], Partial fill upon patient request if the prescription is for a... Walker: See Instructions, # 1 each, Maintenance, walker, 03/26/23 16:04:00 EDT, Supply amiodarone 200 mg oral tablet: 200 mg, By Mouth, 2 times a day, # 60 tablet, Refills 0, Tot. Refills 0, Maintenance, 03/26/23 15:53:00 EDT, Route to Pharmacy Electronically, [facility],Partial fill upon patient request if the prescription is for a schedule II opioid... atorvastatin 80 mg oral tablet: 1 tablet = 80 mg, By Mouth, Daily, Refill per PCP or Clerk Of Court, # 30 tablet, 0 Refills, Maintenance, 03/04/23 10:31:00 EDT, Tablet, [facility], Partial fill upon patient request if the prescription is for a schedule II opioid drug., 1... clopidogrel 75 mg oral tablet: 75 mg, 1, tablet, By Mouth, Daily, # 30 tablet, Refills 0, Tot. Refills 0, Maintenance, 03/26/23 15:53:00 EDT, Route to Pharmacy Electronically, [facility], Partial fill upon patient request if the prescription is for a schedule II opioi... furosemide 20 mg oral tablet: 20 mg, 1, tablet, By Mouth, Daily, # 3 tablet, Refills 0, Tot. Refills 0, Maintenance, 03/26/23 15:54:00 EDT, [facility] fill upon patient request if the prescription is for a schedule II opioid... hydrOXYzine hydrochloride 10 mg oral tablet: 2 tablet = 20 mg, By Mouth, 2 times a day, PRN Anxiety, # 14 tablet, 0 Refills, Acute 04/09/23 21:00:00 EDT, 03/26/23 15:55:00 EDT, Tablet, [facility], Partial fill upon patient request if the prescription is for a schedule II opioid [place]... labs: labs, See Instructions, # 1 each, Refills 0, Tot. Refills 0, Maintenance, CBC and BMP, 03/26/23 16:13:00 EDT, Supply metoprolol 25 mg oral tablet: 25 mg, 1, tablet, By Mouth, 2 times a day, Refill per PCP or Clerk Of Court, # 60 tablet, Refills 0, Tot. Refills 0, Maintenance, 03/26/23 15:53:00 EDT, Route to Pharmacy Electronically, [facility], Partial fill upon patient request if the... Documented Medications Documented Ventolin HFA 108 mcg/inh inhalation aerosol with adapter: INHALE 2 PUFFS INTO THE LUNGS EVERY 4 HOURS NEEDED FOR COUGH OR WHEEZING. Walker: See Instructions, Maintenance, 03/26/23 16:04:00 EDT, Supply acetaminophen 325 mg oral tablet: 650 mg, 2, tablet, By Mouth, Every 6 hours, Refills 0, Maintenance, 03/26/23 15:53:00 EDT, Partial fill upon patient request if the prescription is for a schedule IIopioid drug. aspirin 81 mg oral tablet, chewable: 81 mg, 1, tablet, By Mouth, Daily, # 30 tablet, Refills 0, Maintenance, 03/02/23 8:09:00 EDT, Partial fill upon patient request if the prescription is for a schedule II opioid drug. tamsulosin 0.4 mg oral capsule: 0.4 mg, 1, capsule, By Mouth, Daily, # 90 capsule, Refills 0, Maintenance, 02/04/23 8:43:00 EDT, Partial fill upon patient request if the prescription is for a schedule II opioid drug. Therapies Wound care: Wound care: May take shower; do not apply lotions or perfumed soap to surgical wound; Pat dry do not rub wounds. Call Cardiac Surgeon Office for signs of infection which include fever, chills, reddness, pus like drainage or wound separation [phone] at any time for questions or concerns Weigh yourself daily at the same time of day, preferrably in the morning and record. If you gain orloose more than 3 pounds in 1 day or 5 pounds in one week, call the cardiac surgery office at [phone]. Smoking Cessation: Patient greater than or equal to 18 years Patient has not smoked in last 12 months. . * Rosalba Truong RN: PERFORM Event Display: Patient Education/Instruction Authored Date: [id number] Inpatient Adult Discharge Instructions [address] [address] Name: KATELYNN KANG : 1970 Visit: 03/17/2023 05:10:00 Current Date: 03/26/2023 16:28 Account: [id number] Inpatient Adult Discharge Instructions We would like [...] and their families. Surveys are administered by [employer] ?? If further treatment with your primary care physician or another doctor is recommended, it is important for you to keep the appointment. Call your primary care physician or return to the Emergency Department immediately if your condition worsens, fails to improve, or new symptoms develop. If you need to find a doctor, you can call [facility] Brown for a referral at [phone] or toll free at [phone] or log in to [email or web address].. ?? You can view and manage your care through the patient portal or by using a health care clint of your choosing. tok tok tok is a website that allows you to securely view your medical information including your hospital discharge summary, office visit summaries, medications and follow-up visits. You can also request appointments, renew medications, and request access to your medical information using a health care clint of your choosing, or just ask a question. You can enroll at [email or web address] or register during your next office visit. You have been discharged from [facility], Patient Care Unit: M6. If you have any questions regarding these instructions after you leave, please call us and we will be happy to assist you. [facility] Your Care Team Attending Physician Korin HENAO, Kwame Discharging Providers Steve BURKS, Shauna Reason for Admission CAD CABG MONTANEZ ENDOVEIN ENDORADAIL HV2 SUSAN ARR 530A Your Diagnosis CAD (coronary artery disease) Tests Performed Below is a partial list of the tests performed during your hospitalization. You may have had other tests and procedures not included in this list. Please discuss all test results with your provider. ABG POC CARTRIDGE BASE EXCESS POC CARTRIDGE BUN CALCIUM IONIZED POC CART CBC CBC w/ Differential Creatinine Electrolytes FIBRINOGEN Glucose Level GLUCOSE POC GLUCOSE POC CARTRIDGE H + H HEMATOCRIT ONLY HEMATOCRIT POC CARTRIDGE HEMOCHRON ACT-PLUS HEMOGLOBIN POC CARTRIDGE Hgb + Hct INR Ionized Calcium K Level Lytes Magnesium Level NEPHROCHECK Platelet Count Potassium Level POTASSIUM POC CARTRIDGE PTT SODIUM POC CARTRIDGE SOURCE EXPOSURE PROFILE Type and Screen VBG POC CARTRIDGE CXR CXR Portable XR Chest Portable Primary Care Provider Not on Staff, PCP Advance Directive Health Care Proxy on File Yes - Health Care Proxy Discharge Vitals Temperature: 97.9 DegF Height: 173 cm Pulse Rate: 80 bpm Weight: 95.5 kg Respiratory Rate: 18 br/min Body Mass Index:??33.85 kg/m2??Critical Systolic Blood Pressure:??139 mm Hg??High Body surface area: 2.21 Diastolic Blood Pressure: 75 mm Hg ?? Oxygen Saturation: 99 % ?? Studies Pending All tests and labs ordered during this hospital stay have been completed unless listed below. Please discuss all pending results with your provider listed above in these instructions. ?? BUN CBC COVID-19 (2019 Novel Coronavirus) PCR Creatinine Electrolytes Hold Gel Top Tube (HOLD GEL TUBE) Magnesium Level RBCs for Surgery Transfuse RBCs Type and Screen What to do next Instructions From Your Doctor Discharge Orders You Need to Schedule the Following Appointments Follow Up with??[facility] When:??04/19/2023 01:30 PM EDT Why: Please call [phone] if you cannot keep this appt. Where: [address] [address]- [phone] Follow Up with??Follow up, 1 Week When:??Within Next week Why: any [facility] for a lab draw Follow Up with??Yoshi Marques When:??Within 2 to 5 weeks Why: make an appointment with your mask layout designer Follow Up with??Kwame Langley When:??Within 2 to 3 weeks Why: the office will call you with an appointment Where: [facility] [address] [facility] [place] [address]- Business (1) Follow Up with??PCP Not on Staff Why: establish a PCP and follow-up with an appointment Discharge Medications KANGKATELYNN :1970 Visit Date:03/17/2023 Medications: Please continue your medications until treatment is completed or stopped by your provider. Medications not listed below should be discontinued. Discuss any questions related to medications with your provider. What How Much When Instructions Next Dose New Acetaminophen (acetaminophen 325 mg oral tablet) 2 tab(s) Oral Every 6 hours bedtime New amiODARONE (amiodarone 200 mg oral tablet) 200 Milligram Oral Twice a day Pickup at [place] [address] bedtime New Clopidogrel (clopidogrel 75 mg oral tablet) 1 tab(s) Oral Daily Pickup at [place] [address] tomorrow morning New Furosemide (furosemide 20 mg oral tablet) 1 tab(s) Oral Daily Duration: 3 Days Pickup at [facility] tomorrow morning New HydrOXYzine (hydrOXYzine hydrochloride 10 mg oral tablet) 2 tab(s) Oral Twice a day as needed for Anxiety Pickup at [place] [address] as needed New Miscellaneous Rx (labs) See instructions CBC and BMP ?? Printed Prescription Changed Durable Medical Equipment (Walker) See instructions Changed Durable Medical Equipment (Walker) See instructions walker ?? Printed Prescription Unchanged Albuterol (Ventolin HFA 108 mcg/ inh inhalation aerosol with adapter) INHALE 2 PUFFS INTO THE LUNGS EVERY 4 HOURS NEEDED FOR COUGH OR WHEEZING. ?? as needed Unchanged Aspirin (aspirin 81 mg oral tablet, chewable) 1 tab(s) Oral Daily tomorrow morning Unchanged Atorvastatin (atorvastatin 80 mg oral tablet) 1 tab(s) Oral Daily Refill per PCP or Clerk Of Court ?? tomorrow morning Unchanged Metoprolol (metoprolol 25 mg oral tablet) 1 tab(s) Oral Twice a day Refill per PCP or Clerk Of Court ?? Pickup at [facility] bedtime Unchanged Polyethylene Glycol 3350 (MiraLax oral powder for reconstitution) 17 gram Oral Daily as needed for Constipation dissolve in water before taking ?? as needed Unchanged Tamsulosin (tamsulosin 0.4 mg oral capsule) 1 capsule Oral Daily tomorrow morning Pharmacy Information [facility]: [address], [place] [id number] [phone] ?? What How Much When Comments Stop Taking EPINEPHrine (EPINEPHrine 0.3 mg injectable solution) Stop Taking Losartan (losartan 50 mg oral tablet) 1 tab(s) Oral Daily Stop Taking Nitroglycerin (nitroglycerin 0.4 mg sublingual tablet) DISSOLVE 1 TABLET UNDER THE TONGUE EVERY 5 MINUTES NEEDED FOR CHEST PAIN ?? Test Results Below is a partial list of the most recent Laboratory test results done prior to this discharge. You may have had other tests and procedures not included in this list. Please discuss all test resultswith your provider. CRYO Available - PT (03/17/2023) CRYO Unit ID - [id number] (03/17/2023) Est Creatinine Clearance - 74.55 mL/min (03/26/2023) FFP Available - PT (03/17/2023) FFP Unit ID - [id number] (03/17/2023) PLT Available - PT (03/17/2023) PLT Unit ID - [id number] (03/17/2023) RBC Available - PT (03/21/2023) RBC Unit ID - [id number] (03/21/2023) ABG POC CARTRIDGE (03/19/2023) ???pH (POC) POC Cartridge - 7.43???pCO2 (POC) POC Cartridge - 47.7 mm Hg???pO2 (POC) POC Cartridge - 90 mm Hg???Estimated Bicarbonate (POC) POC Cart - 31.9 mmol/L???% O2 Sat Arterial (POC) POC Cartridge - 97 %???Specimen Type - Blood Gas - ARTERIAL BASE EXCESS POC CARTRIDGE (03/19/2023) ???Base Excess (POC) POC Cartridge - 8 BUN (03/26/2023) ???BUN - 26 mg/dL CALCIUM IONIZED POC CART (03/19/2023) ???Ionized Calcium (POC) POC Cartridge - 1.07 mmol/L CBC (03/26/2023) ???WBC - 19.4 k/mm3???RBC - 3.16 m/mm3???Hgb - 9.6 Gm/dL???Hct - 29.7 %???MCV - 94.0 femtoliters???MCH - 30.4 pg???MCHC - 32.3 g/dL???Platelet Count - 527 k/mm3???RDW-SD - 52.9 femtoliters???MPV - 8.4 femtoliters???Nucleated RBC (Automated) - 0.6 #/100 WBC'S???Abs. NRBC - 0.1 k/mm3 CBC w/ Differential (03/24/2023) ???WBC - 20.1 k/mm3???RBC - 2.57 m/mm3???Hgb - 7.6 Gm/dL???Hct - 24.1 %???MCV - 93.8 femtoliters???MCH - 29.6 pg???MCHC - 31.5 g/dL???Platelet Count - 298 k/mm3???RDW-SD - 50.4 femtoliters???MPV - 8.9 femtoliters???Nucleated RBC (Automated) - 3.5 #/100 WBC'S???Abs. NRBC - 0.7 k/mm3???Abs. Neut - 16.9 k/mm3???Abs. Lymph - 1.4 k/mm3???Abs. Isabela - 0.6 k/mm3???Abs. Eo - 0.4 k/mm3???Abs. Baso - 0.0 k/mm3???Neut % - 84.0 %???Lymph % - 6.0 %???Isabela % - 3.0 %???Eos % - 2.0 %???Baso % - 0.0 %???Myelocytes % - 1.0 %???Metamyelocyte % - 3.0 %???Atypical Lymph % - 1.0 %???RBC Morphology - MODERATE???Platelet Estimate - ADEQUATE Creatinine (03/26/2023) ???Creatinine-Blood - 1.1 mg/dL???Estimated GFR Creatinine - 84 ML/MIN/1.73 M2 Electrolytes (03/26/2023) ???Sodium - 136 mmol/L???Potassium - 3.9 mmol/L???Chloride - 93 mmol/L???Bicarbonate Level - 31 mmol/L???Anion Gap - 12 FIBRINOGEN (03/17/2023) ???Fibrinogen - 136 mg/dL Glucose Level (03/24/2023) ???Glucose Level - 86 mg/dL GLUCOSE POC (03/25/2023) ???Glucose, POC - 102 mg/dL GLUCOSE POC CARTRIDGE (03/19/2023) ???Glucose (POC) POC Cartridge - 131 H + H (03/18/2023) ???Hgb - 8.6 Gm/dL???Hct - 25.3 % HEMATOCRIT ONLY (03/17/2023) ???Hct - 27.3 % HEMATOCRIT POC CARTRIDGE (03/19/2023) ???Hematocrit (POC) POC Cartridge - 20 % HEMOCHRON ACT-PLUS (03/17/2023) ???POC ACT-Plus - 132.0 seconds HEMOGLOBIN POC CARTRIDGE (03/19/2023) ???Hemoglobin (POC) POC Cartridge - 6.8 Gm/dL Hgb + Hct (03/17/2023) ???Hgb - 9.5 Gm/dL???Hct - 28.1 % INR (03/17/2023) ???INR - 1.2???Protime (PT) - 12.4 seconds Ionized Calcium (03/17/2023) ???Calcium, Ionized pH Corrected - 1.14 mmol/L K Level (03/21/2023) ???Potassium - 4.0 mmol/L Lytes (03/20/2023) ???Sodium - 134 mmol/L???Potassium - 3.3 mmol/L???Chloride - 93 mmol/L???Bicarbonate Level - 33 mmol/L???Anion Gap - 8 Magnesium Level (03/26/2023) ???Magnesium - 2.3 mg/dL NEPHROCHECK (03/18/2023) ???Acute Kidney Injury Risk Score - 0.36 Platelet Count (03/17/2023) ???Platelet Count - 133 k/mm3 Potassium Level (03/18/2023) ???Potassium - 4.5 mmol/L POTASSIUM POC CARTRIDGE (03/19/2023) ???Potassium (POC) POC Cartridge - 3.4 mmol/L PTT (03/17/2023) ???APTT - 30.5 seconds SODIUM POC CARTRIDGE (03/19/2023) ???Sodium (POC) POC Cartridge - 134 mmol/L SOURCE EXPOSURE PROFILE (03/17/2023) ???Hepatitis B Surface Antigen - NEGATIVE???Hepatitis C Ab - NEGATIVE???HIV 4th Generation Ab-Ag Result - NEGATIVE Type and Screen (03/23/2023) ???Blood Type - O Positive???Antibody Screen - Negative VBG POC CARTRIDGE (03/19/2023) ???pH Venous (POC) POC Cartridge - 7.39???pCO2 Venous (POC) POC Cartridge - 45.7 mm Hg???pO2 Venous(POC) POC Cartridge - 26 mm Hg???Est Bicarbonate (POC) POC Cartridge - 27.5 mmol/L???% O2 Sat Venous (POC) POC Cartridge - 47???Specimen Type - Blood Gas - MIXED VENOUS Allergies (NKA means No Known Allergies) Adhesive Bandage??(Cardiac electrode site, Soft tissue swelling, Plastic adhesive tape) Bee Stings??(Anaphylaxis) Valium??(violent) Zithromax??(Wheezing, swelling) codeine??(wheezing) Problems Active Problems??(9) Acquired deafness of left ear?? Chest pain?? DVT, lower extremity?? GERD (gastroesophageal reflux disease)?? History of CVA (cerebrovascular accident) without residual deficits?? Hx of Lyme disease?? Obese class I?? Paresthesias?? Tobacco dependence?? Education Materials Below is the list of Educational Leaflet Providered with your Discharge Instructions. COPD and Heart Disease?? Cardiac Surgery Discharge Instructions?? Valuables and Belongings I fully understand and agree that [facility] accepts no responsibility for all my [...] of Valuable and Belonging List: With patient Possessions released to: Sent with patient's spouse Karla Date for Pt to Sign Valuables/Belongings: 03/17/23 09:10:00 ?? Valuables & Belongings ?? Clothes Electronic devices Jewelry Monetary Items Personal devices Miscellaneous Medications (Valuables) Valuables at Bedside Pants, Shirt, Shoes, Undergarments ? Credit cards, Wallet ? Valuables Sent Home ? Valuables Sent to Security ? Other Discharge Information ?? Wound Assessment?? Wound Assessment?? Surgical Incision Type I: Surgical Surgical Incision Assessment I: Clean, dry, intact Surgical Incision I, Surrounding Skin: Intact Surgical Incision Type II: Surgical Surgical Incision II, Surrounding Skin: Intact ? Pulmonary Rehab Status?? Pulmonary Rehab Discharge Status?? Respiratory Rate: 18 br/min PEEP: 10 ? Cardiac Rehab Assessment?? Cardiac Rehab Inpatient Assessment?? Comments-Education: post op ed, role of exercise, sternal precautions Comments-Exercise Activity: home walking, IS Comments-Nutrition: per RD Comments-Other plan of care: refer to ph 2 cr at [facility] Common Emergency Awareness Tips IS IT A [...] are strongly encouraged to quit. Please call [facility] at [phone] or [phone]) or log in to [email or web address] for referrals to smoking cessation programs. ?? 097 Suicide & Crisis Lifeline is available 10/05 if you or someone you know needs to find a reason to keep living. By calling 159 you'll be connected to a skilled, trained counselor at a crisis center in your area. INPATIENT DISCHARGE INSTRUCTIONS SIGNATURE PAGE KATELYNN KANG Location:[facility] Registration Date and Time:03/17/2023 05:10 EDT Primary Care Physician: Not on Staff, PCP Attending Physician: [facility] I KATELYNN KANG, have received the above patient education materials/instructions and have verbalized understanding. If ambulance or transport services are being used I further acknowledge being given a choice of service. ?? If you need to contact me, please call me at this number: . Patient/Renewable Energy Consultant Name: Patient/Renewable Energy Consultant Signature: Relationship to Patient: Witness Name/Signature: Date: * Shauna Wilson NP: PERFORM, SIGN, VERIFY Shalonda Mckeon: SIGN Event Display: Patient Education Handout Authored Date: [id number] * Shauna Wilson NP: PERFORM Event Display: Patient Education Leaflets Authored Date: [id number] COPD and Heart Disease ?? 70546 COPD and Heart Disease Some people have more than 1 health problem at one time. If you have emphysema or chronic bronchitis, 2 main conditions of COPD, you may also have heart disease. There is no direct link between COPD and heart disease. But the 2 conditions may affect each other. People with COPD or heart disease often have trouble breathing during normal tasks or physical activities. With COPD (chronic obstructive pulmonary disease), the lungs and airways are damaged. The damage ismost often caused by breathing in irritants over a long period of time. Your airways can become blocked with mucus or collapse. Because of this, air doesn???t flow normally through the airways in your lungs. This can cause shortness of breath or trouble breathing. Heart disease is any condition that affects how the heart works or the heart rhythm, or cause damage to the heart muscle, structure, valves, or vessels. Coronary artery disease (CAD) is the most common type of heart disease. It occurs when an artery that brings blood to the heart becomes blocked ornarrowed. If the artery is blocked, it can lead to a heart attack. Heart disease also includes other conditions. These include heart valve disease, heart failure, and heart rhythm problems (arrhythmias). How does COPD raise your risk for heart disease? Cigarette smoking is the main cause of COPD. Smokers are 2 to 4 times more likely to have heart disease or stroke. Even secondhand smoke raises your risk for heart disease. Not everyone with COPD will get heart disease. But you are more likely to raise your risk for it when you have COPD. Most people who develop COPD were smokers. Smoking makes your blood sticky. This can cause your blood to clot. When your blood clots, blood flow to the heart and brain is blocked. It also raises yourblood pressure. This raises your risk for heart disease. Smoking harms your lungs. This affects the delivery of oxygen to the body. COPD can cause inflammation in the body. This raises the risk of having coronary artery disease (CAD). COPD lowers the oxygen level in the blood. So your heart muscle may not get enough blood and oxygen. This puts extra strain on your heart. It can cause heart disease. ?? Symptoms of heart disease Some heart disease symptoms are the same as COPD symptoms. But there are many different heart disease symptoms to look out for. If you are being treated for COPD and have any of the symptoms below, call right away: ??? Trouble breathing or talking ??? Lips or fingernails turn blue or frausto ??? Symptoms gets worse and your medicine or treatments are not working ??? Dizziness, confusion, or feeling light-headed ??? Very fast heartbeat The symptoms below may be a sign of heart disease. Call your healthcare provider right away if you have any of these: ??? Shortness of breath that gets worse ??? Sudden weight gain ??? Coughing more than normal ??? Tiredness and weakness that get worse ?? Warning signs of a heart attack A heart attack is a major health event. It happens when blood flow to part of the heart is blocked.Many of the heart attack symptoms are very much like heart disease symptoms. They may start suddenly. Call right away if you have any of these warning signs: ??? Chest pain or discomfort that lasts for more than a few minutes ??? Pain or discomfort in one or both arms, the back, neck, jaw, or stomach ??? Shortness of breath ??? Weakness or numbness in arms and legs ??? Dizziness or feeling lightheaded ??? Feeling of sudden tiredness and weakness ??? Breaking out in a cold sweat ??? Vomiting or upset stomach, heartburn, indigestion, or belly pain ?? Treatment for heart disease Heart disease can be an ongoing health problem. But treatment will help you feel better. Your healthcare provider will work with you to make a treatment plan. Your treatment plan may include: ??? Quitting smoking. This is the most important risk factor you can change. If you smoke, it's never too late to help your heart. Ask your provider about nicotine replacement products and smoking cessation support. Quitting smoking is the single biggest way to reduce your risk of heart disease. Quitting can help make your symptoms better. ??? Taking medicine. Medicines help treat the symptoms of heart disease. They can also lower the chances that you will have serious health issues and have to go to the hospital. Take your medicines every day as directed. ??? Joining a cardiac rehab program. Cardiacrehab is a program that gives you the skills you need to manage both COPD and heart disease in yourdaily life. Ask your provider if this program is available for you. ?? Last Reviewed Date: 2021 ?? 0579-3102 [employer]. All rights reserved. This information is not intended as a substitute for professional medical care. Always follow your healthcare professional's instructions. ?? * Shauna Wilson NP: PERFORM Event Display: Patient Education Leaflets Authored Date: [id number] Cardiac Surgery Discharge Instructions ?? 605 Patient Education Materials Cardiac Surgery Discharge Instructions ?? Here is information related to your condition to help you when you get home. ?? Call the Cardiac Surgery office if you experience any of the following: ??? Temperature of 101?? or above, chills, and or sweating. ??? Low grade fever of 99?? - 100?? lasting for a week. ??? Changes in breathing, chest pain, abnormal pain, dizziness, change in pulse, pulse rate or palpitations. ??? Worsening shortness of breath. ??? New onset nausea, vomiting or diarrhea. ??? New rash, cough, dizziness, leg cramps, or blurred vision. ??? Any bleeding or swelling at the incision site or if a hard lump forms. ??? Any drainage, redness, tenderness, or edges pulling apart at your surgical incision site. ??? A weight gain of more than 2-3 pounds in one day or 5 pounds in 1 week. ??? Worsening ankle swelling or leg pain ??? Pain in calf that becomes worse when pointing toe up to head ??? Sharp pain when taking a deep breath ??? Urinary tract infection: frequent urination, burning with urination, or urgency to urinate. ??? Extreme Fatigue ?? Call 911 if: ??? You develop a new onset of weakness, numbness, loss of vision, slurred speech or any concern for a stroke or mini stroke. ??? If you develop numbness, tingling, loss of sensation, and or coolnessto your arms or legs. ??? Fainting, confusion, or disorientation. ??? Sudden, severe headache. ??? If you develop chest pain or discomfort that is not relieved with rest ??? If profuse bleeding (doesnot stop in 30 minutes) occurs, hold pressure to the site and call 911, do not drive yourself to the nearest hospital. ??? Bright red color in your stool. ??? Coughing or vomiting up bright red blood. ??? Heart rate faster than 150 beasts/minute with shortness of breath or new palpitations. ??? Severe abdominal pain ? ? Extreme weakness and/or chills often associated with fever >101??. ?? Follow Up: ?? A follow up appointment should be made with your doctors. If you do not have appointments scheduled, make them when you get home from the hospital. Follow up care is important; it is strongly encouraged that you to keep your appointments. ??? Cardiac Surgery Health Care Provider in 7 to 14 days or as directed. ??? Primary Care Provider in 2-5 weeks or as directed. ??? Primary Clerk Of Court in 2-5 weeks or as directed. ??? Cardiac Rehabilitation: Arrangements for cardiac rehabilitation enrollment will be made during your 1???2-week follow-up appointment with your cardiac surgery health care provider if an appointment was not made for you prior to discharge. If you have any questions, please call the Cardiac Surgery office at [phone]. ? Bathing: ??? Shower daily with a gentle soap allowing shower water to rinse soap off. ??? Gently pat incisions dry with a clean towel. ??? You may need assistance with showering the first few days. ??? If youare unsteady on your feet use a shower chair. ??? Do not take a tub bath until all scabs have healed on all incisions. ??? Do not use creams, lotions, or ointments on your incisions. ??? Wear clean clothing every day. ??? Avoid holding pets and children close to your bare chest. ??? Women: Wear a clean bra daily that you can put on without reaching your arms behind your back. ?? Incision Care: It is normal to see bruising and areas of hardness in your leg incisions (a camera was used to remove the vein there); you can elevate the leg, wear the compression stockings given to you or BEBO bandages to help reduce swelling. ? ? Look at your incision sites (chest wall, legs, arms & groins) every day until they are completely healed. ??? Check your incisions daily for drainage, redness, increased tenderness, or edges pulling apart. ??? Keep your incisions clean and dry. ?? Activity ??? Imagine there is a tube around your upper body. You can lift, push, and raise your arms if you remain in the tube. ??? Move arms freely if not holding items. ??? Use both arms, keeping them closeto the body with elbows in when lifting pushing, pulling, getting out of bed, or standing from a chair. ??? Stop an activity if you experience discomfort or hear a clicking/popping sound. ??? When reaching behind with one arm for self-care such as toileting rotate from the waist keeping elbows close to the body. ??? Hug your chest with a clean pillow when coughing, laughing, or sneezing. ??? Gradually increase your activity. This will promote wound healing. Remember to alternate periods of activity with periods of rest. ??? It is important to continue to do the coughing and deep breathing exercises to help prevent breathing complications. ??? Use incentive spirometer 8 to 10 times hourly while awake for the first two weeks you are home. ??? Take your temperature every day. ??? Weigh yourself at the same time every morning. ??? Wear elastic stockings for four weeks after you return home.??? Put elastic stocking on in the morning and remove them at bedtime. ??? Female patients should wear a soft supportive bra without under wires to prevent breast from pulling on incision. ?? Driving ??? Do not drive for at least 3 weeks after surgery or until your surgeon approves driving during the postoperative visit. ??? Once approved to drive, start with short distances, and have a passengerwith you. ??? Do not drive if you are still taking any prescribed medication for pain or a muscle relaxer. ??? 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 ??? DO NOT disable airbags. ??? Position the passenger seat as far back as possible.?Diet ??? Use healthy cooking methods: Bake, Boil, Steam, Broil. ??? Eat mostly plant- based diet; fruits and vegetables, whole grains and legumes (beans, peas and lentils). Include nuts and seeds in moderation. ??? Choose lean meats: skinless chicken/turkey breast, red meats with minimal marbling, greater than 90% lean ground meats. ??? Enjoy fish and seafood prepared healthfully twice a week or more. ??? Choose low fat dairy products. ??? Enjoy sweets in moderation. ??? Reduce sodium and salt intake: Avoid adding salt and choose products with less than 140 mg sodium per serving. Use herbs and spices to flavor your food. Daily sodium intake should be less than 3000mg. ??? Avoid processed foods, fried foods and foods that contain trans-fat. ??? Daily protein intake goal is 80-110 grams. ?? Smoking If you have a history of smoking , it is advised that you quit. smoking is a major risk factor for coronary artery disease and heart attack. Smoking cessation is essential for recovery and long-term health . ?? We can offer smoking cessation resources, including nicotine replacement therapy, medication therapy, and referral to behavioral counseling or support groups. ?? Lowering your cholesterol Diet and exercise may not lower your cholesterol enough. Cholesterol medicines may help prevent further cholesterol build up in the arteries. Talk to your healthcare provider about taking medicine for high cholesterol. ? High blood pressure and diabetes ?? If you have high blood pressure or diabetes, continue with your prescribed treatments. These healthproblems, if not controlled can put you at risk for having a heart attack, stroke, or other vascular events. ?? Stress Learn to manage stress with ways that fit your needs. Some stress relieving activities include meditation, deep breathing techniques and exercise. Stress that isn???t managed can prolong healing and cause other health problems. Talk to your healthcare provider if you need additional resources to manage stress. ?? Feelings?? You may also be impatient to return to your regular activities and may feel frustrated with your recovery. Remember that your body needs time to heal. In fact, healing takes energy and depletes your strength. You will have good days and bad days, and you may feel depressed and angry about how long your recovery seems to take. Talk to your family or friends about your feelings and try to remember that you will get better. As you get stronger and more rested, you will feel more positive about your progress. One way to avoid feeling depressed is to maintain as normal a routine as possible. Get up at your usual time and bathe or shower. Get dressed; don???t stay in your nightclothes all day. Take a rest in the morning and afternoon, and when you feel tired. Get a good night???s sleep. If yourdepression doesn???t improve, talk to your doctor. Feelings ?? Valve Surgery Instructions ?? You will receive a booklet and card specific to the valve you received. This card should be always carried with you. Your doctor may prescribe an anticoagulant medication to prevent blood clots that could lead to a stroke. Your doctor may prescribe an antibiotic.?? This helps prevent infection that could scar and destroy your heart valve. Your will be instructed when to take this medication, suchas before dental work, surgery, or medical procedures. ?? Please refer to the Understanding & Preparing for Heart Surgery booklet. ?? If you are being discharged on Coumadin ??/warfarin, please refer to the H&V Anticoagulation Patient Education booklet. ?? Discharge Instruction Video ? * Event Display: Adult Preadmission Health Questionnaire Authored Date: EKG study * Event Display: EKG Authored Date: * Event Display: ECG 12-Lead Authored Date: Please click on pdf link to open report * Event Display: ECG 12-Lead Authored Date: Ventricular Rate: 76 BPM Atrial Rate: 76 BPM P-R Interval: 156 ms QRS Duration: 92 ms Q-T Interval: 400 ms QTC Calculation(Bazett): 450 ms P [place]: 25 degrees R [place]: -4 degrees T [place]: 58 degrees Sinus rhythm with Premature atrial complexes with Aberrant conduction Inferior infarct , age undetermined Abnormal ECG Confirmed by CYNTHIA AVILES MD ([id number]) on 03/23/2023 9:58:12 AM [place]: CYNTHIA AVILES MD Cardiology * Event Display: Cardiac Rhythm Strips Authored Date: Hospital Progress note * Natalia Swanson LPN: PERFORM, SIGN, VERIFY Event Display: Progress Note Hospital Authored Date: Patient: KATELYNN KANG Age: 52 years Sex: Male : 1970 Associated Diagnoses: None Author: Natalia Swanson LPN Findings Problem Related to Alteration in Cardiac Function (new) : Alteration in Cardiac Function/new 03/25/2023 5:00 EDT Alteration in Cardiac Status Related to Cardiac Surgery Goals & Outcomes, Cardiac Status Pt will resume/maintain adequate cardiac output, Pt will resume/maintain adequate hemodynamic status, Pt will resume/maintain adequate respiratory function, Pt will resume/maintain intact neuro function, Pt will maintain adequate GI/ function appropriate for pt, Pt will maintain adequate nutrition status, Pt/caregiver will state understanding of diagnosis, Pt/caregiver will state strategies to reduce risk factors, Pt will maintain adequate tissue oxygenation/ventilation, Pt will maintain adequate ventilatory support, Pt will state understanding of cardiac surgery education Cardiac Interventions Implemented Assess/monitor cardiac status, Assess/monitor neuro status, Assess/monitor respiratory status, Ensure adequate caloric intake, If no bowel movement in 3 days activate bowel regime, Monitor & document daily weight, Teach/encourage deep breath & cough exercises, Teach/encourage use of incentive spirometer BH Goals/Interventions, Cardiac Yes Cardiac, Problem Start 03/18/2023 5:02 Reviewed Plan with, Cardiac Status Patient Patient Progression, Cardiac Status Patient progressing according to plan 03/24/2023 3:00 EDT Alteration in Cardiac Status Related to Cardiac Surgery Goals & Outcomes, Cardiac Status Pt will resume/maintain adequate cardiac output, Pt will resume/maintain adequate hemodynamic status, Pt will resume/maintain adequate respiratory function, Pt will resume/maintain intact neuro function, Pt will maintain adequate GI/ function appropriate for pt, Pt will maintain adequate nutrition status, Pt/caregiver will state understanding of diagnosis, Pt/caregiver will state strategies to reduce risk factors, Pt will maintain adequate tissue oxygenation/ventilation, Pt will maintain adequate ventilatory support, Pt will state understanding of cardiac surgery education Cardiac Interventions Implemented Assess/monitor cardiac status, Assess/monitor neuro status, Assess/monitor respiratory status, Assess for tolerance of IV infusions; verify rate & dose, Call/Report variances in ECG to provider, Document & Monitor O2 Sats; Administer O2 as ordered, Ensure adequate caloric intake, If no bowel movement in 3 days activate bowel regime, Monitor & document daily weight BH Goals/Interventions, Cardiac Yes Cardiac, Problem Start 03/18/2023 5:02 Reviewed Plan with, Cardiac Status Patient Patient Progression, Cardiac Status Patient progressing according to plan . Nursing Data Vital Signs : VITAL SIGNS SECTION 03/26/2023 4:22 EDT Early Warning Score 3.00 03/26/2023 4:20 EDT Temperature 98.6 DegF Temperature Route Oral Pulse Rate 72 bpm Respiratory Rate 16 br/min Systolic Blood Pressure 123 mm Hg Diastolic Blood Pressure 62 mm Hg Blood pressure sites Arm, left Mean Arterial Pressure 82 mm Hg Pulse Pressure 61 mm Hg Oxygen Saturation 97 % Liters per Minute 2 L/min Mode of Delivery (Oxygen) High flow nasal cannula 03/25/2023 23:51 EDT Early Warning Score 3.00 03/25/2023 23:50 EDT Temperature 98.8 DegF Temperature Route Oral Pulse Rate 68 bpm Respiratory Rate 16 br/min Systolic Blood Pressure 115 mm Hg Diastolic Blood Pressure 75 mm Hg Blood pressure sites Arm, right Mean Arterial Pressure 88 mm Hg Pulse Pressure 40 mm Hg Oxygen Saturation 98 % Liters per Minute 2 L/min Mode of Delivery (Oxygen) Nasal cannula 03/25/2023 21:35 EDT Respiratory Rate Not Done: Patient Sleeping (Not Done) Respiratory Rate Not Done: Patient Sleeping (Not Done) 03/25/2023 20:37 EDT Early Warning Score 5.00 03/25/2023 20:37 EDT Early Warning Score 5.00 03/25/2023 20:36 EDT Early Warning Score 5.00 03/25/2023 20:36 EDT Early Warning Score 5.00 03/25/2023 20:36 EDT Pulse Rate 82 bpm Respiratory Rate 20 br/min Systolic Blood Pressure 139 mm Hg H Diastolic Blood Pressure 76 mm Hg 03/25/2023 20:35 EDT Respiratory Rate 20 br/min Respiratory Rate 20 br/min 03/25/2023 19:28 EDT Early Warning Score 5.00 03/25/2023 19:27 EDT Temperature 98.6 DegF Temperature Route Oral Pulse Rate 82 bpm Respiratory Rate 18 br/min Systolic Blood Pressure 139 mm Hg H Diastolic Blood Pressure 76 mm Hg Blood pressure sites Arm, left Mean Arterial Pressure 97 mm Hg Pulse Pressure 63 mm Hg Oxygen Saturation 94 % Liters per Minute 2 L/min Mode of Delivery (Oxygen) Nasal cannula 03/25/2023 16:31 EDT Early Warning Score 5.00 03/25/2023 16:30 EDT Temperature 98.2 DegF Temperature Route Oral Pulse Rate 91 bpm H Respiratory Rate 18 br/min Systolic Blood Pressure 130 mm Hg Diastolic Blood Pressure 69 mm Hg Blood pressure sites Arm, right Mean Arterial Pressure 89 mm Hg Pulse Pressure 61 mm Hg Oxygen Saturation 93 % L Mode of Delivery (Oxygen) Room air 03/25/2023 14:37 EDT Early Warning Score 7.00 03/25/2023 14:37 EDT Early Warning Score 7.00 03/25/2023 14:37 EDT Respiratory Rate 18 br/min Respiratory Rate 18 br/min 03/25/2023 12:01 EDT Early Warning Score 7.00 03/25/2023 12:01 EDT Temperature 97.3 DegF Temperature Route Oral Pulse Rate 72 bpm Respiratory Rate 18 br/min Systolic Blood Pressure 136 mm Hg Diastolic Blood Pressure 63 mm Hg Blood pressure sites Arm, right Mean Arterial Pressure 87 mm Hg Pulse Pressure 73 mm Hg Oxygen Saturation 94 % Mode of Delivery (Oxygen) Room air 03/25/2023 11:43 EDT Early Warning Score 3.00 03/25/2023 10:46 EDT Early Warning Score 3.00 03/25/2023 10:46 EDT Early Warning Score 3.00 03/25/2023 10:46 EDT Early Warning Score 3.00 03/25/2023 10:43 EDT Pulse Rate 70 bpm Respiratory Rate 18 br/min Systolic Blood Pressure 138 mm Hg Diastolic Blood Pressure 65 mm Hg 03/25/2023 10:42 EDT Respiratory Rate 18 br/min 03/25/2023 9:38 EDT Early Warning Score 3.00 03/25/2023 8:13 EDT Early Warning Score 3.00 03/25/2023 8:02 EDT Early Warning Score 3.00 03/25/2023 8:02 EDT Pulse Rate 70 bpm Respiratory Rate 18 br/min Systolic Blood Pressure 138 mm Hg Diastolic Blood Pressure 65 mm Hg Blood pressure sites Arm, right Mean Arterial Pressure 89 mm Hg Pulse Pressure 73 mm Hg Oxygen Saturation 97 % Liters per Minute 2 L/min Mode of Delivery (Oxygen) Nasal cannula 03/25/2023 7:53 EDT Early Warning Score 3.00 03/25/2023 7:52 EDT Temperature 98.4 DegF Temperature Route Oral Pulse Rate 73 bpm Respiratory Rate 18 br/min Systolic Blood Pressure 136 mm Hg Diastolic Blood Pressure 74 mm Hg Blood pressure sites Arm, right Mean Arterial Pressure 95 mm Hg Pulse Pressure 62 mm Hg Oxygen Saturation 99 % Liters per Minute 2 L/min Mode of Delivery (Oxygen) Nasal cannula 03/25/2023 7:28 EDT Respiratory Rate 18 br/min 03/25/2023 3:30 EDT Early Warning Score 3.00 03/25/2023 3:27 EDT Temperature 98.0 DegF Temperature Route Oral Pulse Rate 70 bpm Respiratory Rate 18 br/min Systolic Blood Pressure 143 mm Hg H Diastolic Blood Pressure 80 mm Hg Blood pressure sites Arm, left Mean Arterial Pressure 101 mm Hg Pulse Pressure 63 mm Hg Oxygen Saturation 97 % Liters per Minute 2 L/min Mode of Delivery (Oxygen) Nasal cannula 03/25/2023 1:10 EDT Early Warning Score 5.00 Early Warning Score 5.00 03/25/2023 0:19 EDT Early Warning Score 5.00 . Narrative/Incidental Patient AOx4, patient complained of mild discomfort and shortness of breath at start of shift whileon room air, head of bed elevated and placed on 2 liters of O2 NC, patient reports relief from shortness of breath and discomfort. Patient resting comfortably in bed throughout shift reports I sleptpretty great for once, it's nice to finally get some rest. . * Shauna Wilson NP: PERFORM Event Display: Progress Note Hospital Authored Date: Patient: ??KATELYNN KANG ? Age:??52 Years?Sex:??Male?:??1970?? Subjective POD 8 CABGx5 EF 60% ?? -on RA this AM -asking for some PT today and possible d/c tomorrow -NSR 70's -7kg+ and on Lasix 40mg IV BID -WBC 18, trending down, afebrile ? Review of Systems complains poor night sleep Objective Vital Signs?? Temperature: 98.2 DegF (03/25/23 16:30:00) Temperature Route: Oral (03/25/23 16:30:00) Pulse Rate:??91 bpm??High (03/25/23 16:30:00) Respiratory Rate: 18 br/min (03/25/23 16:30:00) Systolic Blood Pressure: 130 mm Hg (03/25/23 16:30:00) Diastolic Blood Pressure: 69 mm Hg (03/25/23 16:30:00) Blood pressure sites: Arm, right (03/25/23 16:30:00) Mean Arterial Pressure: 89 mm Hg (03/25/23 16:30:00) Pulse Pressure: 61 mm Hg (03/25/23 16:30:00) Oxygen Saturation:??93 %??Low (03/25/23 16:30:00) Liters per Minute: 2 L/min (03/25/23 08:02:00) Mode of Delivery (Oxygen): Room air (03/25/23 16:30:00) Early Warning Score: 5 (03/25/23 16:31:00) ? Intake/Output? 03/17 05:10 03/25 07:00 0607 07:00 06 07:00 03/22 07:00 ?? 03/25 19:14 03/25 19:14 03/25 06:59 07 06:59 03/23 06:59 Intake ?90707.1 ?480 ?960 ?720 ? 89.0 Output ?35289 ?400 ? 2790 ? 2750 ? 3980 Net Total ? -00917.9 ? 80 ?-1830 ?-2030 ?-3891.0 ? Urine Count ?3 ?0 ?0 ?1 ?2 ? Physical Exam ?? Neurological:??intact Pulmonary/Lungs: decreased/clear Cardiovascular:??NSR 70?? Gastrointestinal:??Abdomen (non-tender, non-distended).?? Extremities:??Pulses??+ Edema (both,??1 +).?? Surgical Wounds:??Chest dry and intact, Extremities dry and intact ?? _ Inpatient Medications Medications (40) Active SCHEDULED: (23) Acetaminophen 325 mg Tablet (Acetaminophen Tablet) ??975 mg, By Mouth, Every 6 hours Albuterol/Ipratropium Inhalation Ericka 3mL (Duoneb Inhalation Solution) ??1 vials, BAND Nebulizer, 4 times a day Amiodarone 200 mg Tablet (amiODARONE Tablet) ??200 mg, By Mouth, 2 times a day Aspirin 81 mg EC Tablet (Aspirin Tablet) ??81 mg, By Mouth, Daily Atorvastatin 80 mg Tablet (atorvastatin 80 mg oral tablet) ??80 mg, By Mouth, Daily Baclofen 10 mg Tablet (baclofen 10 mg oral tablet) ??10 mg, By Mouth, 3 times a day Clopidogrel 75 mg Tablet (Clopidogrel Tablet) ??75 mg, By Mouth, Daily Enoxaparin 40 mg Inj (Enoxaparin Inj) ??40 mg 0.4 mL, Subcutaneous Injection, Daily Furosemide Inj (Furosemide ??Inj) ??40 mg 4 mL, IV Push Slowly, 3 times a day Gabapentin 300 mg Capsule (Gabapentin Capsule) ??300 mg, By Mouth, 3 times a day Lactulose 20 Gm/30mL Syrup (Lactulose Syrup) ??20 Gm 30 mL, By Mouth, Daily Lidocaine 5% Topical Patch (Lidocaine 5% Patch) ??1 each, Topically, Daily Lidocaine 5% Topical Patch (Lidocaine 5% Patch) ??1 each, Topically, Daily Metoprolol 25mg Tablet (Metoprolol IR Tablet) ??25 mg, By Mouth, 2 times a day NaCl 0.9% Flush 3ml (Flush NaCl 0.9%) ??3 mL, IV Push, Every 8 hours Pantoprazole 40 mg EC Tablet (Pantoprazole Tablet) ??40 mg, By Mouth, Daily Polyethylene Glycol 17 Gm Powder (MiraLax Powder) ??17 Gm 1 pack/packet, By Mouth, Daily Remove Patch (Remove Lidocaine Patch) ??1 each, Topically, Daily at bedtime Remove Patch (Remove Lidocaine Patch) ??1 each, Topically, Daily at bedtime Senna 8.6 mg / Docusate 50 mg tablet (Docusate/Senna Tablet) ??2 tablet, By Mouth, Daily Tamsulosin 0.4 mg Capsule (tamsulosin 0.4 mg oral capsule) ??0.4 mg, By Mouth, Daily Vashe Wound Care Emollient/Cleanser (Vashe Topical Solution) ??475 mL, Topically, Every 12 hours Vashe Wound Care Emollient/Cleanser (Vashe Topical Solution) ??475 mL, Topically, Every 12 hours CONTINUOUS: (0) PRN: (17) Albuterol/Ipratropium Inhalation Ericka 3mL (Duoneb Inhalation Solution) ??1 vials, BAND Nebulizer, Every 4 hours Bisacodyl 10 mg Suppository (Bisacodyl Supp) ??10 mg 1 supp, Rectally, Daily Bisacodyl 5 mg EC Tablet (Bisacodyl Tablet) ??10 mg, By Mouth, Daily hydrALAZINE 20 mg/mL Inj (hydrALAZINE Inj) ??5 mg 0.25 mL, IV Push Slowly, Every 6 hours HydrOXYzine HCL 10mg Tablet (HydrOXYzine HCL Tablet) ??20 mg, By Mouth, 4 times a day Magnesium Sulfate 2 Gm /50 mL (Magnesium Sulfate IVPB) ??2 Gm 50 mL, IVPB, Every 4 hours NaCl 0.9% Flush 3ml (Flush NaCl 0.9%) ??3 mL, IV Push, Every 8 hours NaCl 0.9% Flush 3ml (Flush NaCl 0.9%) ??3 mL, IV Push, Every 8 hours NaCl 0.9% Flush 3ml (Flush NaCl 0.9%) ??3 mL, IV Push, Every 8 hours Ondansetron 2mg/mL Inj (2mL Vial) (Ondansetron Inj) ??4 mg, IV Push, Every 6 hours OxyCODONE 5 mg IR Tablet (oxyCODONE 5 mg oral tablet) ??5 mg, By Mouth, Every 4 hours OxyCODONE 5 mg IR Tablet (oxyCODONE 5 mg oral tablet) ??10 mg, By Mouth, Every 4 hours Potassium Chloride 10mEq ER Tablet (Potassium Chloride Tablet) ??40 mEq, By Mouth, Every 4 hours Potassium Chloride 10mEq ER Tablet (Potassium Chloride Tablet) ??40 mEq, By Mouth, Daily Trazodone 50 mg Tablet (traZODone 50 mg oral tablet) ??100 mg, By Mouth, Daily at bedtime Vashe Wound Care Emollient/Cleanser (Vashe Topical Solution) ??475 mL, Topically, Every 6 hours Vashe Wound Care Emollient/Cleanser (Vashe Topical Solution) ??475 mL, Topically, Every 6 hours ? Results Abnormal Labs ?? BLOOD COUNT & DIFF ??Abs. NRBC ??0.3 k/mm3 () ??03/25/2023 00:07 ??Hct ??25.4 % (Low) ??03/25/2023 00:07 ??Hgb ??8.1 Gm/dL (Low) ??03/25/2023 00:07 ??MCHC ??31.9 g/dL (Low) ??03/25/2023 00:07 ??MPV ??8.6 femtoliters (Low) ??03/25/2023 00:07 ??Nucleated RBC (Automated) ??1.7 #/100 WBC'S () ??03/25/2023 00:07 ??RBC ??2.72 m/mm3 (Low) ??03/25/2023 00:07 ??RDW-SD ??51.7 femtoliters (High) ??03/25/2023 00:07 ??WBC ??18.9 k/mm3 (High) ??03/25/2023 00:07 ? CHEM GENERAL ??BUN ??25 mg/dL (High) ??03/25/2023 00:07 ??Chloride ??95 mmol/L (Low) ??03/25/2023 08:56 ??Estimated GFR Creatinine ??89 ML/MIN/1.73 M2 () ??03/25/2023 00:07 ??Glucose, POC ??102 mg/dL (High) ??03/25/2023 08:12 ? Note: Critical results are displayed in red. ? Coagulation Profile?? No qualifying data available. ?? LFT?? No qualifying data available. ? Assessment/Plan ?? On 03/17/2023 the patient underwent the following: S/P CABG x 5 (MONTANEZ to LAD, GSVG to RPDA, GSVG to PLV, GSVG to OM2, Left Radial to OM1) Endoscopic Vessel [place], Placement of IABP, Sternal Plating. ?? POD # 7 ?? URGEON: Dr. Langley EMR TRAINER: Dr. Marques ?? EF 60-65 % ?? Impression and Plan ?? NEUROLOGIC: -- Pain management PRN per protocol -- hydroxyzine for anxiety --trazodone 100mg HS for sleep ?? CARDIOVASCULAR: CAD s/p CABGx5 Post operative hypotension due to vasoplegia and blood loss - resolved Cardiogenic shock after cardiac surgery - resolved s/p Intraop IABP, removed 6/2 -weaned off pressors 6/2 -Core Measures: - ASA, Beta-kalina, Statin: 80 mg Atorvastatin at bedtime. -Atrial fibrillation Prophylaxis- Amiodarone PO for 30 days?? -Plavix 75 mg PO for 1 year ?? RESPIRATORY: Right upper lobe collapse - resolved Smoker/COPD Extubated on POD1 to [place], remained hypoxic and transitioned to HFNC , CXR Increased mild interstitial and alveolar pulmonary edema. Slightly increased small left pleuraleffusion. -continue pulmonary hygiene and CPT, now on room air -diuresis 40mg IVP Lasix TID, CPT, nebulizers, acapella, OOB to chair -refuses nicotine patch ? GI: -- cardiac diet -- GI Prophylaxis: PPI- Protonix 40 mg Po daily. ?? RENAL -- Trend renal function labs and urine output. -- Baseline Cr: 0.9 today 0.8 -- Nephrocheck on POD #1 0.3 -- Lasix 40mg IVP TID-diuresing well net negative 3567 ml ?? INFECTIOUS DISEASE: -- SCIP prophylactic abx. --Leukocytosis WBC 24 >??18, afebrile monitor ?? HEMATOLOGY -- Acute blood loss anemia secondary to cardiothoracic surgery -- Accept H/H > 7/21: Trend CBC. today H/H 7/21 //-transfused X1 unit PRBC ? ENDOCRINE: -- As per post operative cardiac surgery insulin protocol -- Stress hyperglycemia; Nondiabetic. -- Hgb A1C 5.6% ?? DVT Prophylaxis: -- SCD's, -- Lovenox 40 mg daily -- Discontinue pharmacologic DVT prophylaxis?at discharge. -- Teds t to continue until resumes preoperative activity level. ?? SKIN -- Keep sternal incision covered with Aquacel Ag remove on POD # 5. -- Graft harvest sites with bebo wrap- remove after 48 hours and every shift for inspection. ?? DISPOSITION:??encourage walking, deep breathing, diurese. Cardiac rehab. ?Patient seen with and plan reviewed with Dr Linn ? * Billie Blanc RN: SIGN, VERIFY, PERFORM Event Display: Progress Note Hospital Authored Date: Patient: KATELYNN KANG Age: 52 years Sex: Male : 1970 Associated Diagnoses: None Author: Billie Blanc RN Findings Problem Related to Alteration in Cardiac Function (new) : Alteration in Cardiac Function/new 03/25/2023 5:00 EDT Alteration in Cardiac Status Related to Cardiac Surgery Goals & Outcomes, Cardiac Status Pt will resume/maintain adequate cardiac output, Pt will resume/maintain adequate hemodynamic status, Pt will resume/maintain adequate respiratory function, Pt will resume/maintain intact neuro function, Pt will maintain adequate GI/ function appropriate for pt, Pt will maintain adequate nutrition status, Pt/caregiver will state understanding of diagnosis, Pt/caregiver will state strategies to reduce risk factors, Pt will maintain adequate tissue oxygenation/ventilation, Pt will maintain adequate ventilatory support, Pt will state understanding of cardiac surgery education Cardiac Interventions Implemented Assess/monitor cardiac status, Assess/monitor neuro status, Assess/monitor respiratory status, Ensure adequate caloric intake, If no bowel movement in 3 days activate bowel regime, Monitor & document daily weight, Teach/encourage deep breath & cough exercises, Teach/encourage use of incentive spirometer BH Goals/Interventions, Cardiac Yes Cardiac, Problem Start 03/18/2023 5:02 Reviewed Plan with, Cardiac Status Patient Patient Progression, Cardiac Status Patient progressing according to plan . Nursing Data Cardiac Data. 03/24/2023 21:00 EDT Cardiovascular Symptoms Edema present Skin Temperature Upper Extremities Warm, Dry Skin Temperature Lower Extremities Warm, Dry Cardiac Rhythm Normal sinus rhythm Capillary Refill < 3 seconds Radial Pulse, Left Normal Radial Pulse, Right Normal Dorsalis Pedis Pulse, Left Normal Dorsalis Pedis Pulse, Right Normal Edema, Left Pretibial 2+ mild Edema, Right Pretibial 2+ mild Ankle, left 2+ mild Ankle, right 2+ mild Pedal, left 2+ mild Pedal, right 2+ mild surveillance system monitor Yes Cardiovascular WNL except . Gastrointestinal Data. 03/24/2023 21:00 EDT Last Bowel Movement 03/24/2023 GI WNL Normal Bowel Pattern Every third day . Genitourinary Data. : Genitourinary Data. 03/24/2023 21:00 EDT WNL . HEENT Data. : HEENT Assessment 03/24/2023 21:00 EDT HEENT, Adult WNL . Integumentary Data. : Integumentary Data. 03/24/2023 21:00 EDT Skin Color Normal for ethnicity Skin Integrity Not intact Activity Walks occasionally Mobility No limitations Integumentary WNL except . Musculoskeletal Data. : Musculoskeletal Data. 03/24/2023 21:00 EDT Musculoskeletal WNL except . Neurological Data. : Neurological Data. 03/24/2023 21:00 EDT Pain Interventions Non-pharmacological, Pharmacological, PRN medication, Repositioning, Rest Neuro WNL . Respiratory/Pulmonary Data. : Respiratory/Pulmonary Data. 03/24/2023 21:00 EDT Respiratory Symptoms None Respiratory effort Unlabored Chest expansion Symmetrical Cough Non-productive Respiratory pattern Regular Left Upper Lobe Breath Sounds Diminished Right Upper Lobe Breath Sounds Diminished Right Middle Lobe Breath Sounds Diminished Left Lower Lobe Breath Sounds Diminished Right Lower Lobe Breath Sounds Diminished Respiratory distress None Respiratory WNL except . Vital Signs : VITAL SIGNS SECTION 03/24/2023 22:47 EDT Early Warning Score 5.00 03/24/2023 22:47 EDT Early Warning Score 5.00 03/24/2023 22:47 EDT Early Warning Score 5.00 03/24/2023 22:47 EDT Temperature 97.9 DegF Temperature Route Oral Pulse Rate 75 bpm Respiratory Rate 18 br/min Systolic Blood Pressure 114 mm Hg (Modified) Diastolic Blood Pressure 77 mm Hg Blood pressure sites Arm, left Mean Arterial Pressure 89 mm Hg (Modified) Pulse Pressure 37 mm Hg (Modified) Oxygen Saturation 97 % Mode of Delivery (Oxygen) Room air . Narrative/Incidental POD 8 from CABGx5, diuresing with iv lasix, VSS, SR 70's on tele surg sites, sternum, flavia legs, L forearm, CT sites-wound care done per orders falls and safety precautions in place, see cis and flowsheets for complete assessment.. Deprecated Cardiac rehabilitation treatment plan Progress note and attainment of goals (narrative) * Mara Gan RN: PERFORM, SIGN, VERIFY Event Display: Cardiac Rehab Note Authored Date: Patient: KATELYNN KANG Age: 52 years Sex: Male : 1970 Associated Diagnoses: None Author: Mara Gan RN Diagnosis Cardiac Rehab Diagnosis: CABG. Pre-exercise Vitals Vital Signs: 98 SaO2, 2L. Pre-exercise Physical Examination Neurologic: alert & oriented. Activity Symptoms with Cardiac Rehab Symptoms: SLight SOB with ambulation . Activity Transfers: independent. Ambulate: with assist, assist x 1 , assistive device, distance ambulated 150 feet, stand by assist . Incentive Spirometry Incentive Spirometry: Good technique - effort. Post-exercise Vitals Vital Signs: 94% SaO2, on RA. Vital Signs Comment: Pt o2 sat 98% on 2L, prior to ambulation 96% on room air, with activity o2 [id number]%. pt wished to get back to bed, pt on room air o2 sat 94-96%. patients RN made aware pt on Room air. encouraged IS use. . Patient Education Education: Patient alone, Written material included. Education topic Teachback comprehension 75% Topic: Home activity guidelines/limits, Post operative recovery guidelines. Recommendation and Plan Ambulate: 3-5 times/day, with assist of 1 , with assistive device. Encourage: Incentive spirometer. Outpatient follow up recommended: [facility]. Recommendation comment: RN notified of plan. * Mara Gan RN: PERFORM, SIGN, VERIFY Event Display: Cardiac Rehab Note Authored Date: [id number] Patient: KATELYNN KANG Age: 52 years Sex: Male : 1970 Associated Diagnoses: None Author: Mara Gan RN Diagnosis Cardiac Rehab Diagnosis: CABG. Pre-exercise Vitals Vital Signs: 84 HR, 94 SaO2, Room air . Pre-exercise Physical Examination Neurologic: alert & oriented, oriented to (time, person, place). Activity Symptoms with Cardiac Rehab Symptoms: Pt ambulating in brady to adaptice stairs comleted stairs x1 one, during seccond attempt pt reportded being lightheaded. Pt cam down stairts pt sat in chair, VS checked o2 94% on RN, BP 150/70 hr 84. after sitting pt reported lightheadedness resolved. Pt ambulated back to room. sat in recliner chair with call carmichael in reach. reported improved lightheadedness. . Activity Transfers: independent. Ambulate: with assist, assist x 1 , distance ambulated 150 feet, standby assist. Stairs: with assist, assist x 1 , reported lighheadedness. Assistive Devices Assistive Device: Walker. Incentive Spirometry Incentive Spirometry: Good technique - effort. Post-exercise Vitals Vital Signs: 150/70 BP Sitting, 93-94% SaO2, Room air . Post-exercise Physical Examination Neurologic. Patient Education Education: Patient alone, Cardiac surgery booklet reviewed. Education topic Teachback comprehension 75% Topic: Role of exercise, Home activity guidelines/limits, Post operative recovery guidelines. Recommendation and Plan Ambulate: 3-5 times/day, with assist of 1 . Encourage. Outpatient follow up recommended: [facility], in 4 weeks. Cardiac Rehab: Daily, Will see on 03/26/2023 . Recommendation comment: RN notified of plan. * Brina Merida: VERIFY, PERFORM, SIGN Event Display: Cardiac Rehab Note Authored Date: [id number] Patient: KATELYNN KANG Age: 52 years Sex: Male : 1970 Associated Diagnoses: None Author: Brina Merida Assisted cardiac rehab staff, patient became lightheaded while attempting stairs. Able to complete 3 stairs x 2. Put patient in chair, vitals checked. HR 84 NSR, BP 150/76, 94% RA. Assisted patient back to bed. Portable XR Chest Views * [facility] , CIS S: TRANSCRIBE Kelly Jacques MD: VERIFY Event Display: Result: Authored Date: Chest Portable performed upright at 10:35 AM Reason: S P Cardiac Surgery; Clinical Question(s): Pleural Effusion COMPARISON: Multiple prior chest x-rays, the most recent of which is dated 03/22/2023. FINDINGS: LINES AND TUBES: Interval removal of the right IJ central venous sheath. LUNGS AND PLEURA: Improving aeration is seen of both lungs. Persistent retrocardiac left basilar density. Minimal blunting of the left costophrenic angle. No pneumothorax. HEART, MEDIASTINUM AND MUNA: Status post median sternotomy and likely CABG. The cardiac and mediastinal contours appear within normal limits. BONES AND SOFT TISSUES: No acute abnormality. IMPRESSION: Improving aeration of both lungs with decreasing vascular congestion. Unchanged retrocardiac left basilar density likely reflecting atelectasis. Minimal blunting of the left costophrenic angle suggesting trace left pleural effusion. WSN: [id number] Ordering Physician: Martin Frank Dictated By: Kelly Jacques MD Dictated Date/Time: 03/24/23 1:21 pm Reviewed By: Kelly Jacques MD Signed By: Kelly Jacques MD Signed Date/Time: 03/24/23 1:21 pm Transcribed By: KRIS Transcribed Date/Time: 03/24/23 1:20 pm * LIN Patricia S: Nelson Prater MD: VERIFY Event Display: Result: Authored Date: [id number] Chest Portable Reason: Shortness of Breath COMPARISON: March 19, 2023 at 4:55 AM FINDINGS: LINES AND TUBES: The [place] scan catheter has been removed. Right IJ sheath remains in place with tip overlying the proximal SVC. The mediastinal drain and left chest tube are unchanged. Intra-aortic balloon pump marker no longer seen. LUNGS AND PLEURA: Lung volumes are low. Progression of a right upper lobe atelectasis with shift of the minor fissureand volume loss. Persistent left basilar retrocardiac opacity.. Normal pulmonary vascularity. Possible small pleural effusions. No pneumothorax. HEART, MEDIASTINUM AND MUNA: Slightly increased widening of the cardiomediastinal silhouette, likely related to low lung volumes. BONES AND SOFT TISSUES: No acute abnormality. Status post median sternotomy and cervical spine fusion. IMPRESSION: Persistent left basilar atelectasis/infiltrate. Slight worsening of right upper lobe atelectasis.. WSN: [id number] Ordering Physician: Shauna Wilson Dictated By: Nelson Guzmán MD Dictated Date/Time: 03/20/23 9:08 am Reviewed By: Nelson Guzmán MD Signed By: Nelson Guzmán MD Signed Date/Time: 03/20/23 9:08 am Transcribed By: KRIS Transcribed Date/Time: 03/20/23 9:04 am * LIN Patricia S: Everardo Chen MD: VERIFY Event Display: Result: Authored Date: [id number] Chest Portable Reason: S P Cardiac Surgery COMPARISON: 03/18/2023. FINDINGS: LINES AND TUBES: Unchanged position of the right internal jugular vein approach [place]berto catheter, mediastinal drains, and left chest tube. Intra-aortic balloon pump marker is approximately 3 cm below the michael, in the mid descending aorta. Top of the aortic arch is not clearly delineated due to superior mediastinal widening. The endotracheal and enteric tubes have been removed. LUNGS AND PLEURA: Lung volumes are low. There are opacities in bilateral cardiophrenic angles. Normal pulmonary vascularity. Possible small pleural effusions. No pneumothorax. HEART, MEDIASTINUM AND MUNA: Slightly increased widening of the cardiomediastinal silhouette, likely related to low lung volumes. BONES AND SOFT TISSUES: No acute abnormality. Status post median sternotomy and cervical spine fusion. IMPRESSION: Small pleural effusions. Bilateral cardiophrenic angle opacities likely represent atelectasis and/or pneumonia. WSN: [id number] Ordering Physician: Rupa Sage Dictated By: Everardo Sanchez MD Dictated Date/Time: 03/19/23 8:54 am Reviewed By: Everardo Sanchez MD Signed By: Everardo Sanchez MD Signed Date/Time: 03/19/23 8:54 am Transcribed By: KRIS Transcribed Date/Time: 03/19/23 8:50 am * [facility] , CIS S: TRANSCRIBE Luly Santos MD: VERIFY Event Display: Result: Authored Date: [id number] Chest Portable Reason: S P Cardiac Surgery; Clinical Question(s): Other:; Cardiac Tamponade; Special Instructions:Post Op Day 1 COMPARISON: 03/17/2023 FINDINGS: LINES AND TUBES: Endotracheal tube terminates above the michael. Subdiaphragmatic gastric tube. Mediastinal and chesttubes are unchanged. Pulmonary arterial catheter tip is in the area of main pulmonary artery towards the left pulmonary artery. There is a intraoperative balloon pump radiopaque marker projecting below the level of the aortic arch at the area of the descending thoracic aorta. LUNGS AND PLEURA: Mild perihilar atelectasis. Markedly improved atelectasis in the left upper lung persists. Trace pleural fluid on the left. No pneumothorax. HEART, MEDIASTINUM AND MUNA: Unchanged cardiomediastinal postsurgical changes and mild cardiomegaly. Normal mediastinal and hilar contour. BONES AND SOFT TISSUES: No osseous interval change. IMPRESSION: Improving right upper lung atelectasis. Similar position of support lines and tubes. WSN: [id number] Ordering Physician: Alon Robison Dictated By: Luly Santos MD Dictated Date/Time: 03/18/23 8:37 am Reviewed By: Luly Santos MD Signed By: Luly Santos MD Signed Date/Time: 03/18/23 8:37 am Transcribed By: KRIS Transcribed Date/Time: 03/18/23 8:30 am * LIN Patricia S: TRANSCRIBE Jose Daniel Orellana MD: VERIFY Event Display: Result: Authored Date: [id number] Chest Portable supine Reason: Counts: Sponges [employer] Protocol; Special Instructions: Pt is in [facility] OR 17. Per discussion with the scrub nurse, the count was over for needles. No missing object. COMPARISON: Chest radiograph 03/03/2023.. FINDINGS: LINES AND TUBES: Endotracheal tube in place, tip approximately 2.8 cm above the michael. Enteric tube in place, tip below the diaphragm. Right IJ central venous catheter tip projects to the right of midline in the upper mediastinum, possibly within the SVC. Left apically directed chest tube. Midline mediastinal drain. Metallic marker for the IABP projects at approximately at the level of the michael 4.5 cm below the aortic arch. LUNGS AND PLEURA: Right upper lobe collapse. The left lung volumes. The right lower lobe and right middle lobe are normally aerated. No pleural effusion. No pneumothorax. HEART, MEDIASTINUM AND MUAN: Postsurgical changes of the cardiomediastinal silhouette following recent median sternotomy. No unexpected radiopaque foreign body identified. BONES AND SOFT TISSUES: Status post median sternotomy. Postsurgical changes of the lower cervical spine following prior ACDF. IMPRESSION: 1. Lines and tubes as described. No unexpected radiopaque foreign body identified. 2. Postsurgical changes of the chest following median sternotomy. 3. Right upper lobe collapse. WSN: [id number] Ordering Physician: Kwame Langley Dictated By: Jose Daniel Orellana MD Dictated Date/Time: 03/17/23 9:38 pm Reviewed By: Jose Daniel Orellana MD Signed By: Jose Daniel Orellana MD Signed Date/Time: 03/17/23 9:38 pm Transcribed By: KRIS Transcribed Date/Time: 03/17/23 9:29 pm * LIN Patricia S: TRANSCRIAndrew Modi MD: VERIFY Hans Irizarry DO L: SIGN Event Display: Result: Authored Date: [id number] Chest Portable Reason: S P Cardiac Surgery; Clinical Question(s): Cardiac Tamponade; COMPARISON: Earlier same day FINDINGS: LINES AND TUBES: Endotracheal tube tip approximately 2.5 cm above the michael. Enteric tube with side-port at the GE junction. Right IJ central venous catheter has been advanced with tip near the main pulmonary outflow tract. IABP marker appears unchanged approximately 1 cm below the level of the michael. Left apically directed chest tube. Mediastinal drains. LUNGS AND PLEURA: Unchanged right upper lobe collapse. The lungs are otherwise well aerated. No pleural effusion. No pneumothorax. HEART, MEDIASTINUM AND MUNA: Unchanged cardiomediastinal silhouette. BONES AND SOFT TISSUES: No acute abnormality. Status post median sternotomy and ACDF. IMPRESSION: Support lines as above. Recommend advancing the enteric tube. Unchanged right upper lobe collapse. I have personally reviewed the images and I agree with this report. WSN: [id number] Ordering Physician: Alon Robison Dictated By: Hans Irizarry DO Dictated Date/Time: 03/17/23 11:21 p Reviewed By: Andrew Fernandez MD Signed By: Andrew Fernandez MD Signed Date/Time: 03/17/23 11:26 pm Transcribed By: KRIS Transcribed Date/Time: 03/17/23 11:16 pm Laboratory * [facility] , CIS S: TRANSCRIBE Samantha HENAO, Alex: VERIFY Caroline Tejeda DO P: SIGN Event Display: Result: Authored Date: [id number] Chest 2 Views Frontal and Lat Reason: Follow-Up Pleural Effusion COMPARISON: Multiple priors, most recent 03/20/2023. FINDINGS: LINES AND TUBES: Right IJ catheter sheath in place. LUNGS AND PLEURA: Increased interstitial markings and faint alveolar opacities. Increased small left pleural effusion. No pneumothorax. HEART, MEDIASTINUM AND MUNA: Moderate prominence of the cardiac silhouette, unchanged. Status post CABG. Normal mediastinal and hilar contour. BONES AND SOFT TISSUES: Status post median sternotomy. IMPRESSION: Increased mild interstitial and alveolar pulmonary edema. Slightly increased small left pleural effusion. I have personally reviewed the images and I agree with this report. WSN: [id number] Ordering Physician: Ayala Larsen Dictated By: Caroline Tejeda DO Dictated Date/Time: 03/22/23 9:14 am Reviewed By: Alex Singh MD Signed By: Alex Singh MD Signed Date/Time: 03/22/23 9:19 am Transcribed By: KRIS Transcribed Date/Time: 03/22/23 9:07 am Patient Care team information Care Team Personnel Name: Fiona Sanchez RN Position: S RN Member Role: Primary Care Nurse Name: Ene Horan RN Position: [facility] RN Supv Member Role: Primary Care Nurse Name: Bienvenido Herrmann RN Position: S RN Member Role: Primary Care Nurse Name: Louisa Hyman RN Position: [facility] RN Supv Member Role: Primary Care Nurse Name: Cynthia Corbin RN Position: S RN Member Role: Primary Care Nurse Name: Yoshi Bernardo RN Position: [facility] SN RN Member Role: Primary Care Nurse Name: Not on Staff, PCP Position: [facility] Physician (General Medicine) Member Role: PCP Name: Alon Castillo RN Position: [facility] RN Member Role: Primary Care Nurse Name: Mercedes Jasmine RN Position: [facility] RN Member Role: Primary Care Nurse Name: Charlene Davenport RN Position: S RN Member Role: Primary Care Nurse Name: Angela Arreguin RN Position: S RN Member Role: Primary Care Nurse Name: Irlanda Hernandez RN Position: S RN Member Role: Primary Care Nurse Name: Radha Kessler Position: S RN Member Role: Primary Care Nurse Care Team Related Persons Name: KARLA AIKEN Address: [address] [place] [address] Name: KARLA KANG Address: [address] [place] [address]
--- OUTSIDE RECORDS SUMMARY | 2024-09-08 14:43 | XMS_ITS | Continuity of Care Document ---
Author Organization [facility] Address [address] [place] [address]- Care Team Providers Care Check Writing Machine Operator Name Role Phone Salome Parker MD Primary Care Physician [phone] Encounter [facility] [place] Date(s): 11/07/19 - 11/17/19 [facility] [address] [place] [address]- [facility] Attending Physician: Ramu Dumont Admitting Physician: AdmRamu paz Referring Physician: AdmtrRamu Allergies, Adverse Reactions, Alerts Substance Reaction Severity Status codeine wheezing Active Zithromax swelling Active Valium violent Active Immunizations Given and Recorded Vaccine Date Status Refusal Reason Pneumococcal Vaccine (oldterm) 1 12/09/08 Given 1Result Comment: lot #[id number] exp date 14 mar 2010 Medications Neurontin 100 mg oral capsule See Instructions, 100mg in am and afternoon, 300mg at bedtime, # 150 capsule, Refills 5, Tot. Refills 5, Maintenance, 10/25/17 10:51:18, Instructions Replace Required Details, Route to Pharmacy Electronically, [id number][facility] Start Date: 10/25/17 Status: Ordered Problem List Condition Effective Dates Status Health Status Inform ant Paresthesias(Confirmed) Active
--- OUTSIDE RECORDS SUMMARY | 2024-09-08 14:43 | XMS_ITS | Continuity of Care Document ---
Author Organization [facility] Address [address] [place] [address]- Care Team Providers Care Injury/Safety Hazard Assessment Name Role Phone Salome Parker MD Primary Care Physician Encounter [facility] Date(s): 05/23/20 - 06/22/20 [facility] [address] [place] [address] [facility] Attending Physician: Ramu Dumont Admitting Physician: Ramu Dumont Referring Physician: AdmtrRamu Allergies, Adverse Reactions, Alerts [...]
--- OUTSIDE RECORDS SUMMARY | 2024-09-08 14:43 | XMS_ITS | Continuity of Care Document ---
Author Organization [facility] Address [address] [facility] [address] [facility] [address] [address]- Care Team Providers Care Child Development Specialist Name Role Phone Livier Mota MD Primary Care Physician Encounter [facility] [place] Date(s): 04/23/21 - 05/23/21 [facility] [address] [facility] [place] [address]- Allergies, Adverse Reactions, Alerts Substance Reaction Severity [...] 60 tablet, 0 Refills, Acute, [id number], 172, cm, 04/01/21 11:19:00 EDT, Height, 100, [...]
--- OUTSIDE RECORDS SUMMARY | 2024-09-08 14:44 | XMS_ITS | Continuity of Care Document ---
Author Organization [facility] Address [address] [place] [address]- Care Team Providers Care Laboratory Technologist Name Role Phone Salome Parker MD Primary Care Physician Encounter [facility] [place] Date(s): 04/10/20 - 06/22/20 [facility] [address] [place] [address] [facility] Attending Physician: Mitali Almazan MD Admitting Physician: Mitali Almazan MD Referring Physician: Mitali Almazan MD Allergies, Adverse Reactions, Alerts Substance Reaction [...]
--- OUTSIDE RECORDS SUMMARY | 2024-09-08 14:44 | XMS_ITS | Continuity of Care Document ---
Author Organization [facility] Address [address] [facility] [place] [address]- Care Team Providers Care Welder Operator Name Role Phone Salome Parker MD Primary Care Physician Encounter [facility] [place] Date(s): 03/31/21 - 04/30/21 [facility] [address] [place] [address]- Allergies, Adverse Reactions, Alerts Substance Reaction Severity [...] 0 Refills, Maintenance, 04/10/21 14:04:00 EDT, Capsule, [facility]/pharmacy #[id number], Partial fill upon patient request if the prescription is for a schedule II opioid drug., 172, cm, 04/01/21 11:19:00... Start Date: 04/10/21 Stop Date: 04/15/21 Status: Ordered naproxen 500 mg oral tablet See Instructions, TAKE 1 TABLET BY MOUTH TWICE A DAY WITH FOOD, # 60 tablet, 0 Refills, Acute, [id number], 172, cm, 04/01/21 11:19:00 EDT, Height, 100, kg, 03/04/21 16:46:00 EDT, Dry Weight Start Date: 04/09/21 Status: Ordered naproxen 500 mg oral tablet 1 tablet = 500 mg, By Mouth, 2 times a day, with food, # 60 tablet, 0 Refills, Maintenance, 03/18/21 9:19:00 EDT, Tablet, [facility]/pharmacy #[id number], Partial fill upon patient [...]
--- OUTSIDE RECORDS SUMMARY | 2024-09-08 14:44 | XMS_ITS | Continuity of Care Document ---
Author Organization [facility] Address [address] [place] [address]- Care Team Providers Care Dust Mixer Name Role Phone Not on Staff, PCP Primary Care Physician Unavail able Encounter [facility] Date(s): 02/04/23 - 02/04/[address] [address]- Discharge Disposition: A-D/C Home Attending Physician: Leia HENAO, Nestor Stanford Admitting Physician: Nestor Dupree MD Referring Physician: Not on Staff, Referring MD Allergies, Adverse Reactions, Alerts Substance Reaction Severity Status codeine wheezing Active Zithromax swelling Active Valium violent Active Adhesive Bandage 1 Active Bee Stings Active 1plastic tape Immunizations Given and Recorded Vaccine Date Status Refusal Reason Pneumococcal Vaccine (oldterm) 1 12/09/08 Given 1Result Comment: lot #[id number] exp date 14 mar 2010 Medications atorvastatin 20 mg oral tablet 1 tablet = 20 mg, By Mouth, Daily, # 90 tablet, 0 Refills, Maintenance, 02/04/23 8:43:00 EDT, Tablet, Partial fill upon patient request if the prescription is for a schedule II opioid drug. Start Date: 02/04/23 Status: Ordered cyclobenzaprine 10 mg oral tablet 10 mg, 1, tablet, By Mouth, 3 times a day, PRN, # 15 tablet, Refills 0, Tot. Refills 0, Acute 02/10/23 11:31:00 EDT, for spasm, 02/04/23 11:30:00 EDT, Route to Pharmacy Electronically, [facility]/pharmacy #[id number], Partial fill upon patient request if the presc... Start Date: 02/04/23 Stop Date: 02/10/23 Status: Ordered EPINEPHrine 0.3 mg injectable solution 0 Refills, Maintenance, 08/07/20 1:15:00 EDT Start Date: 08/07/20 Status: Ordered Ketorolac Inj 15 mg, Injection, IV Push Slowly, Once, Routine, 02/04/23 11:00:00 EDT, Stop date 02/04/23 11:00:00EDT Start Date: 02/04/23 Stop Date: 02/04/23 Status: Completed losartan 50 mg oral tablet 50 mg, 1, tablet, By Mouth, Daily, # 90 tablet, Refills 0, Maintenance, 02/04/23 8:43:00 EDT, Partial fill upon patient request if the prescription is for a schedule II opioid drug. Start Date: 02/04/23 Status: Ordered naproxen 500 mg oral tablet See Instructions, TAKE 1 TABLET BY MOUTH TWICE A DAY WITH FOOD, # 60 tablet, 0 Refills, Acute, [facility], 172, cm, 04/01/21 11:19:00 EDT, Height, 100, kg, 03/04/21 16:46:00 EDT, Dry Weight Start Date: 04/09/21 Status: Ordered naproxen 500 mg oral tablet 1 tablet = 500 mg, By Mouth, 2 times a day, with food, # 60 tablet, 0 Refills, Maintenance, 03/18/21 9:19:00 EDT, Tablet, [facility]/pharmacy #[id number], Partial fill upon patient request if [...] EDT, Tablet Start Date: 08/07/20 Status: Ordered tamsulosin 0.4 mg oral capsule 0.4 mg, 1, capsule, By Mouth, Daily, # 90 capsule, Refills 0, Maintenance, 02/04/23 8:43:00 EDT, Partial fill upon patient request if the prescription is for a schedule II opioid drug. Start Date: 02/04/23 Status: Ordered Problem List Condition Confirmation Course Effective Dates Status Health St atus Informant Acquired deafness of left ear Confirmed Active Chest pain Confirmed Active DVT, lower extremity Confirmed Active GERD (gastroesophageal reflux disease) Confirmed Active History of CVA (cerebrovascular accident) without residual deficits Confirmed Active Hx of Lyme disease Confirmed Active Paresthesias Confirmed Active Tobacco dependence Confirmed Active Results Radiology Reports * Exam Date Time Procedure Performing Provider Status 02/04/23 10:[address] Abdomen and Pelvi s W/O Contrast Mj Price; Auth (Verified) Notes: (CT Abdomen and Pelvis W/O Contrast) Reason For Exam: Pain RESULT: CT Abdomen and Pelvis W/O Contrast CT Abdomen and Pelvis W/O Contrast Hx of Present Illness: L flank pain, recently started Losartan. Since starting, kidney pain; Reason: Pain; Clinical Question(s): Calculus TECHNIQUE: Spiral CT through the abdomen and pelvis without IV contrast formatted in 3 planes. Thisstudy was performed without oral contrast. Weight- based protocol using automatic tube modulation was used to optimize exposure parameters. CTDIvol Body: 19.29 mGy, DLP Body: 822 mGy*cm. COMPARISON: CT abdomen and pelvis without contrast 11/30/2022. FINDINGS: Newspaper Photographer View Findings, Lines and Tubes: None. Visualized Chest: Lung bases are clear. No pleural effusion. Diaphragm: Normal. Liver: Diffuse low-attenuation throughout the liver parenchyma consistent with hepatic steatosis. No evidence of mass. Gallbladder: No CT evidence of gallbladder pathology. Bile ducts: No biliary ductal dilation. Spleen: Normal. Pancreas: Normal. Adrenal glands: Normal. Kidneys and ureters: Nonobstructing bilateral renal calculi measuring up to 0.4 cm in the left kidney. No hydronephrosis. Bladder: Normal. Reproductive organs: Mild prostatomegaly. Stomach, small bowel, and large bowel: No evidence of bowel obstruction. Colonic diverticulosis without evidence of acute diverticulitis. Appendix: No evidence of acute appendicitis. Peritoneum and retroperitoneum: No ascites or pneumoperitoneum. No omental or mesenteric lesions. Lymph nodes: No enlarged lymph nodes. Blood vessels: Mild vascular calcifications but no aneurysm. Abdominal and pelvic wall: Bilateral fat-containing femoral hernias. Partially visualized, probablevasectomy clips. Bones: No acute abnormality. IMPRESSION: 1. Bilateral nonobstructing renal calculi measuring up to 0.4 cm in the left kidney. 2. Mild prostamegaly. 3. Hepatic steatosis. WSN: [id number] Ordering Physician: Cherrie Qureshi Dictated By: Albertina Razo MD Dictated Date/Time: 02/04/23 10:59 a Reviewed By: Albertina Razo MD Signed By: Albertina Razo MD Signed Date/Time: 02/04/23 10:59 am Transcribed By: KRIS Transcribed Date/Time: 02/04/23 10:48 am Vital Signs Most recent to oldest [Reference Range]: 1 2 Height 173 cm (02/04/23 8:38 AM) Weight 100.1 kg (02/04/23 8:38 AM) Oxygen Saturation [94-100 %] 99 % (02/04/23 11:56 AM) 99 % (02/04/23 8:38 AM) Pulse Rate [55-90 bpm] 61 bpm (02/04/23 11:56 AM) 83 bpm (02/04/23 8:38 AM) Blood Pressure [90-138/55-84 mm Hg] 135/ 83mm Hg (02/04/23 11:56 AM) 162/87mm Hg *H* (02/04/23 8:38 AM) Respiratory Rate [16-30 br/min] 18 br/mi n (02/04/23 11:56 AM) 18 br/min (02/04/23 10:30 AM) Temperature [96.8-100.4 DegF] 97.2 DegF (02/04/23 8:38 AM) Mode of Delivery (Oxygen) Room air (02/04/23 11:56 AM) Room air (02/04/23 8:38 AM) Dry Weight 100.1 kg (02/04/23 8:38 AM) Social History Social History Type Response Smoking Status 5-9 cigarettes (betw een 1/4 to 1/2 pack)/day in last 30 days; Other: 8-9; entered on: 08/08/20 Sex Note * Cherrie Rangel: PERFORM Event Display: Patient Education Leaflets Authored Date: [id number] Back Sprain or Strain ?? [id number] Back Sprain or Strain Injury to the muscles (strain) or ligaments (sprain) around the spine can??be troubling. Injury mayoccur after a sudden forceful twisting or bending, such as in a car accident, after a simple awkward movement, or after lifting something heavy with poor body positioning. In??any case, muscle spasm is often present and adds to the pain. Thankfully, most people feel better in 1 to 2 weeks. Most of the rest feel better in 1 to 2 months.Most people can stay active. Unless you had a forceful or traumatic physical injury, such as??a caraccident or fall, X-rays may not be done for the first assessment of a back sprain or strain. If pain continues and doesn't respond to medical treatment, your healthcare provider may then do X- rays and other tests. Home care These guidelines will help you care for your injury at home: ??? When in bed, try to find a comfortable position. A firm mattress is best. Try lying flat on your back with pillows under your knees. You can also try lying on your side with your knees bent up toward your chest and a pillow between your knees. ??? Don't sit for long periods. Try not to take long car rides or other trips that have you sitting for a long time. This puts more stress on the low back than standing or walking. ??? During the first 24 to 72 hours after an injury or flare-up, put an ice pack on the painful area for 20 minutes. Then remove it for 20 minutes. Do this for??60 to 90 minutes, or a few times a day. This will reduce swelling and pain. To make an ice pack, put ice cubes in a plastic bag that seals at the top. Always wrap the ice pack in a thin towel or cloth to protect your skin. ??? You can start with ice, then switch to??heat. Heat from a hot shower, hot bath, or heating pad reduces pain and works well for muscle spasms. Put heat on the painful area for 20 minutes, then remove for 20 minutes.??Do this for 60??to 90 minutes, or several times a day. Don't use a heating pad while sleeping. It can burn the skin. ??? You can alternate the??ice and heat. Talk with your healthcare provider to find out the best treatment or therapy for your back pain. ??? Therapeutic massage can help relax the back mus cles without stretching them. ??? Be aware of safe lifting methods. Don't lift anything over 15 pounds until all pain is gone. ?? Medicines Talk with your healthcare provider before using medicines, especially if you have other health problems or are taking other medicines. ??? You may use [id number]-tpn-uzrjzaz medicines, such as acetaminophen, ibuprofen, or naproxen, to control pain, unless another pain medicine was prescribed. Talk with your provider before taking any medicines if you have a chronic condition, such as diabetes, liver orkidney disease, stomach ulcers, or digestive bleeding, or are taking blood-thinner medicines. ??? Be careful if you are given prescription medicines, such as opioids, or medicine for muscle spasm. They can cause drowsiness, and affect your coordination, reflexes, and judgment. Don't drive or operate heavy machinery when taking these types of medicines. Only take pain medicine as prescribed by your provider. ?? Follow-up care Follow up with your healthcare provider as advised. You may need physical therapy or more tests??ifyour symptoms get worse. If you had X-rays, your provider may be checking for any broken bones, breaks, or fractures. Bruises and sprains can sometimes hurt as much as a fracture. These injuries can take time to heal fully. If your symptoms don???t get better or they get worse, talk with your provider. You may need a repeat X-ray or other tests. ?? Call 911 Call 911 if any of these occur: ??? Trouble breathing ??? Confused ??? Very drowsy or trouble waking up ??? Fainting or loss of consciousness ??? Rapid or very slow heart rate ??? Loss of bowel or bladder control ??? Weakness or numbness in 1 or both arms or legs ??? Numbness in the groin or genital area ?? When to get medical advice Call your healthcare provider right away if this occurs: ??? Pain gets worse or spreads to your arms or legs ?? Last Reviewed Date: 2022 ?? [id number] [employer]. All rights reserved. This information is not intended as a substitute for professional medical care. Always follow your healthcare professional's instructions. ?? CT Abdomen and Pelvis WO contrast * [facility]ers[facility] , CIS S: TRANSCRIKIM Razo MD, Albertina: VERIFY Event Display: Result: Authored Date: [id number] CT Abdomen and Pelvis W/O Contrast Hx of Present Illness: L flank pain, recently started Losartan. Since starting, kidney pain; Reason: Pain; Clinical Question(s): Calculus TECHNIQUE: Spiral CT through the abdomen and pelvis without IV contrast formatted in 3 planes. Thisstudy was performed without oral contrast. Weight- based protocol using automatic tube modulation was used to optimize exposure parameters. CTDIvol Body: 19.29 mGy, DLP Body: 822 mGy*cm. COMPARISON: CT abdomen and pelvis without contrast 11/30/2022. FINDINGS: Newspaper Photographer View Findings, Lines and Tubes: None. Visualized Chest: Lung bases are clear. No pleural effusion. Diaphragm: Normal. Liver: Diffuse low-attenuation throughout the liver parenchyma consistent with hepatic steatosis. No evidence of mass. Gallbladder: No CT evidence of gallbladder pathology. Bile ducts: No biliary ductal dilation. Spleen: Normal. Pancreas: Normal. Adrenal glands: Normal. Kidneys and ureters: Nonobstructing bilateral renal calculi measuring up to 0.4 cm in the left kidney. No hydronephrosis. Bladder: Normal. Reproductive organs: Mild prostatomegaly. Stomach, small bowel, and large bowel: No evidence of bowel obstruction. Colonic diverticulosis without evidence of acute diverticulitis. Appendix: No evidence of acute appendicitis. Peritoneum and retroperitoneum: No ascites or pneumoperitoneum. No omental or mesenteric lesions. Lymph nodes: No enlarged lymph nodes. Blood vessels: Mild vascular calcifications but no aneurysm. Abdominal and pelvic wall: Bilateral fat-containing femoral hernias. Partially visualized, probablevasectomy clips. Bones: No acute abnormality. IMPRESSION: 1. Bilateral nonobstructing renal calculi measuring up to 0.4 cm in the left kidney. 2. Mild prostamegaly. 3. Hepatic steatosis. WSN: [id number] Ordering Physician: Cherrie Qureshi Dictated By: Albertina Razo MD Dictated Date/Time: 02/04/23 10:59 a Reviewed By: Albertina Razo MD Signed By: Albertina Razo MD Signed Date/Time: 02/04/23 10:59 am Transcribed By: KRIS Transcribed Date/Time: 02/04/23 10:48 am Patient Care team information Care Team Personnel Name: Yoshi Bernardo RN Position: [facility] RN Member Role: Primary Care Nurse Name: Not on Staff, PCP Position: [facility] Physician (General Medicine) Member Role: PCP Name: Alon Castillo RN Position: [facility] RN Member Role: Primary Care Nurse Name: Pedro Singh RN Position: [facility] ED RN W/OE and Tasks Member Role: Patient Care Provider Name: Cherrie Rangel Position: [facility] Associate Professional Member Role: ED Physician Crepe Laminator Operator Address: Address: [address] [place] [address] [place] [address]- Name: Jazmyn Mcmullen Position: [facility] ED TA [facility] Member Role: Medical Records Field Technician Name: Nestor Dupree MD Position: [facility] ED Medicine MD Member Role: Admitting Physician Address: Address: [address] [place] [address] [place] [address]- Care Team Related Persons Name: SAM AIKEN Address: home [address] [place] [address] Name: SAM KANG Address: [address] [place] [address]
--- OUTSIDE RECORDS SUMMARY | 2024-09-08 14:44 | XMS_ITS | Continuity of Care Document ---
Author Organization [facility] Address [address] [place] [address]- Care Team Providers Care Senior Application Programmer Name Role Phone Salome Parker MD Primary Care Physician Encounter [facility] Date(s): 10/17/20 - 10/17/[address] [address] Discharge Disposition: A-D/C Home Attending Physician: Joel Oliver MD Admitting Physician: Joel Oliver MD Referring Physician: Joel Oliver MD Allergies, Adverse Reactions, Alerts Substance Reaction Severity Status codeine wheezing Active Zithromax swelling Active Valium violent Active Bee Stings Active Immunizations Given and Recorded Vaccine Date Status Refusal Reason Pneumococcal Vaccine (oldterm) 1 12/09/08 Given 1Result Comment: lot #[id number] exp date 14 mar 2010 Medications EPINEPHrine 0.3 mg injectable solution 0 Refills, Maintenance, 08/07/20 1:15:00 EDT Start Date: 08/07/20 Status: Ordered NuLYTELY with Flavor Packs oral powder for reconstitution See Instructions, Drink 240mL every 15-20 minutes until first half is gone. Repeat 6 hours prior toprocedure., # 4,000 mL, 0 Refills, Maintenance, 09/30/20 11:30:00 EST, [facility]/pharmacy #[id number], Partial fill upon patient request if the prescription is fo... Start Date: 09/30/20 Status: Ordered omeprazole 40 mg oral enteric coated capsule 1 capsule = 40 mg, By Mouth, Daily, # 90 capsule, 0 Refills, Maintenance, 08/07/20 1:15:00 EDT, EC Capsule Start Date: 08/07/20 Status: Ordered PEG-3350 with Electrolytes (Eqv-GoLYTELY) oral powder for reconstitution See Instructions, 1 glass every 15-30 minutes until finished, # 4,000 mL, 0 Refills, Maintenance, 10/16/20 8:18:00 EST, [facility]/pharmacy #[id number], [place] to fill CoLyte, GoLyte, Gavilyte, Nulytely or PEG 3350, whichever is available., 1 glass every 15-30 minutes... Start Date: 10/16/20 Status: Ordered SUMAtriptan 100 mg oral tablet [...] disease)(Confirmed) Active Paresthesias(Confirmed) Active Tobacco dependence(Confirmed) Active Procedures Procedure Date Related Diagnosis Body Site Status Esophagogastroduodenoscopy and biopsy 10/17/20 Completed Colonoscopy incomplete, poor preparation0 Completed Vital Signs Most recent to oldest [Reference Range]: 1 2 3 Height 172.7 cm (10/17/20 10:46 AM) Oxygen Saturation [94-100 %] 95 % (10/17/20 12:08 PM) 99 % (10/17/20 11:58 AM) 100 % (10/17/20 10:46 AM) Pulse Rate [55-90 bpm] 80 bpm (10/17/20 10:46 AM) Blood Pressure [90-138/55-84 mm Hg] 139/88mm Hg *H* (10/17/20 12:08 PM) 144/78mm Hg *H* (10/17/20 12:01 PM) 151/98mm Hg *H* (10/17/20 10:58 AM) Respiratory Rate [16-30 br/min] 19 br/min (10/17/20 12:08 PM) 16 br/min (10/17/20 11:58 AM) 18 br/min (10/17/20 10:46 AM) Temperature [96.8-100.4 DegF] 97.8 DegF (10/17/20 10:46 AM) Liters per Minute 6 L/min (10/17/20 11:58 AM) Mode of Delivery (Oxygen) Room air (10/17/20 12:08 PM) Simple face mask (10/17/20 11:58 AM) Room air (10/17/20 10:46 AM) Blood pressure sites Arm, left (10/17/20 12:08 PM) Arm, left (10/17/20 12:01 PM) Arm, left (10/17/20 10:58 AM) Temperature Route Temporal (10/17/20 10:46 AM) Dry Weight 101.2 kg (10/17/20 10:46 AM) Dry Weight Obtained Via Patient/family s tated (10/17/20 10:46 AM) Social History Social History Type Response Smoking Status 5-9 cigarettes (betw een 1/4 to 1/2 pack)/day in last 30 days; Other: 8-9; entered on: 08/08/20 Sex
--- OUTSIDE RECORDS SUMMARY | 2024-09-08 14:44 | XMS_ITS | Continuity of Care Document ---
Author Organization [facility] Address [address] [place] [id number]- Care Team Providers Care Rat Culturist Name Role Phone Not on Staff, PCP Primary Care Physician Unavail able Encounter [facility] Date(s): 04/19/23 - 06/25/[address] [address] Encounter Diagnosis Atherosclerotic heart disease of [place] coronary artery without angina pectoris (Final) - Discharge Disposition: A-D/C Home Attending Physician: Kwame Langley MD Admitting Physician: Kwame Langley MD Referring Physician: Kwame Langley MD Allergies, [...] 03/26/23 15:53:00 EDT, Route to Pharmacy Electronically, [facility], Partial fill upon patient [...] By Mouth, Daily, Refill per PCP or Flaking Roll Operator, # 30 tablet, 0 Refills, Maintenance, 03/04/23 10:31:00 EDT, Tablet, [facility], Partial fill upon patient request if the prescription is for a schedule II opioid drug., 1... Start Date: 03/04/23 Status: Ordered Benadryl Extra Strength 2%-0.1% topical cream 1 application, Topically, 3 times a day, # 30 Gm, 1 Refills, Maintenance, 04/07/23 11:41:00 EDT, Cream, [facility]/pharmacy #[id number], Partial fill upon patient request [...] 03/26/23 15:53:00 EDT, Route to Pharmacy Electronically, [facility], Partial fill upon patient request if the prescription is for a schedule II opioi... Start Date: 03/26/23 Status: Ordered furosemide 20 mg oral tablet 20 mg, 1, tablet, By Mouth, Daily, # 3 tablet, Refills 0, Tot. Refills 0, Maintenance, 03/26/23 15:54:00 EDT, Route to Pharmacy Electronically, [facility], Partial fill upon patient request if the prescription is for a schedule II opioid... Start Date: 03/26/23 Stop Date: 03/29/23 Status: Ordered gabapentin 100 mg oral capsule 200 mg, 2, capsule, By Mouth, 3 times a day, # 180 capsule, Refills 0, Tot. Refills 0, Maintenance,04/22/23 16:38:00 EDT, Route to Pharmacy Electronically, [facility]/pharmacy #[id number], Partial fill upon patient request [...] times a day, Refill per PCP or Flaking Roll Operator, # 60 tablet, Refills 0, Tot. Refills 0, Maintenance, 03/26/23 15:53:00 EDT, Route to Pharmacy Electronically, [facility], Partial fill upon patient request if the... Start Date: 03/26/23 Status: Ordered nicotine 10 mg inhalation device See Instructions, use in addition to bupropion, # 168 pack/packet, 3 Refills, Maintenance, 05/21/2314:23:00 EDT, [facility]/pharmacy #[id number], Partial fill upon patient request if the prescription is for a schedule II opioid drug., use in addition to bupropion... Start Date: 05/21/23 Status: Ordered nicotine 14 mg/24 hr transdermal film, extended release 1 patch, Topically, Daily, use in addition to 21 mg patch, for total daily dose or 35 mg., # 30 patch, 3 Refills, Acute 06/18/24 10:44:00 EDT, 06/18/23 10:43:00 EDT, Patch, [facility]/pharmacy #[id number], Partial fill upon patient request if the prescription is f... Start Date: 06/18/23 Stop Date: 06/18/24 Status: Ordered nicotine 21 mg/24 hr transdermal film, extended release 1 patch, Topically, Daily, use for at least 3 months. Replaces bupropion, # 30 patch, 5 Refills, Acute 06/21/24 10:43:00 EDT, 06/18/23 10:43:00 EDT, Patch, [id number], Partial fill upon patient request if the prescription is for a schedule II... Start Date: 06/18/23 Stop Date: 06/21/24 Status: Ordered tamsulosin 0.4 mg oral capsule 0.4 mg, 1, capsule, By Mouth, Daily, # 90 capsule, Refills 0, Maintenance, 02/04/23 8:43:00 EDT, Partial fill upon patient request if the prescription is for a schedule II opioid drug. Start Date: 02/04/23 Status: Ordered triamcinolone 0.1% topical cream 1 application, Topically, 2 times a day, for 14 days, Use, as needed, to pre- treat, and post-treat rash from nicotine patch(es), # 15 Gm, 0 Refills, Acute 07/02/23 10:45:00 EDT, 06/18/23 10:45:00 EDT, Cream, [id number], Partial fill upon patie... Start Date: 06/18/23 Stop Date: 07/02/23 Status: Ordered Ventolin HFA 108 mcg/inh inhalation [...] 8-9; entered on: 08/08/20 Sex Note * Event Display: Cardiac Rehab Telemetry Report Authored Date: * Event Display: Cardiac Rehab Telemetry Report Authored Date: * Event Display: Cardiac Rehab Telemetry Report Authored Date: Patient Care team information Care Team Personnel Name: Fiona Sanchez RN Position: [facility] RN Member Role: Primary Care Nurse Name: Ene Horan RN Position: [facility] RN Supv Member Role: Primary Care Nurse Name: Bienvenido Herrmann RN Position: S RN Member Role: Primary Care Nurse Name: Louisa Hyman RN Position: [facility] RN Supv Member Role: Primary Care Nurse Name: Yoshi Bernardo RN Position: [facility] SN RN Member Role: Primary Care Nurse Name: Not on Staff, PCP Position: [facility] Physician (General Medicine) Member Role: PCP Name: Alon Castillo RN Position: [facility] RN Member Role: Primary Care Nurse Name: Mercedes Jasmine RN Position: [facility] RN Member Role: Primary Care Nurse Name: Charlene Davenport RN Position: [facility] RN Member Role: Primary Care Nurse Name: Angela Arreguin RN Position: [facility] RN Member Role: Primary Care Nurse Name: Irlanda Hernandez RN Position: [facility] RN Member Role: Primary Care Nurse Care Team Related Persons Name: SMA AIKEN Address: [address] [place] [address] Name: NOMI HEMPHILL Name: SAM KANG Address: [address] [place] [address]
--- OUTSIDE RECORDS SUMMARY | 2024-09-08 14:44 | XMS_ITS | Continuity of Care Document ---
Author Organization [facility] Address [address] [place] [address]- Care Team Providers Care Proofer Name Role Phone Salome Parker MD Primary Care Physician Encounter [facility] [place] Date(s): 10/14/20 - 11/13/20 [facility] [address] [place] [id number] Allergies, Adverse Reactions, Alerts Substance Reaction [...] mL, 0 Refills, Maintenance, 09/30/20 11:30:00 EST, [id number], Partial fill upon patient request [...] mL, 0 Refills, Maintenance, 10/16/20 8:18:00 EST, [id number], [place] to [place] CoLyte, GoLyte, Gavilyte, [...] disease)(Confirmed) Active Paresthesias(Confirmed) Active Tobacco dependence(Confirmed) Active Social History Social History Type Response Smoking Status 5-9 cigarettes (betw een 1/4 to 1/2 pack)/day in last 30 days; Other: 8-9; entered on: 08/08/20 Sex
--- OUTSIDE RECORDS SUMMARY | 2024-09-08 14:44 | XMS_ITS | Continuity of Care Document ---
Author Organization [facility] Address [address] [place] [address]- Care Team Providers Care Red Hat Engineer Name Role Phone Livier Mota MD Primary Care Physician [place] [facility] [place](s): 05/08/21 - 06/07/[address] [facility] [address] [place] [id number] Attending Physician: Ramu Dumont Admitting Physician: AdmRamu paz Referring Physician: Admtr, Ar8 Allergies, Adverse Reactions, Alerts Substance Reaction Severity Status codeine wheezing Active Zithromax swelling Active Adhesive Bandage 1 Active Bee Stings Active Valium violent Active 1plastic tape Immunizations [...] 60 tablet, 0 Refills, Acute, [facility], 172, cm, 04/01/21 11:19:00 EDT, Height, 100, [...]
--- OUTSIDE RECORDS SUMMARY | 2024-09-08 14:44 | XMS_ITS | Continuity of Care Document ---
Author Organization [facility] Address [address] [place] [address] [address] [place] [address]- Care Team Providers Care Plastic Printer Name Role Phone Salome Parker MD Primary Care Physician [phone] [place] [facility] [place] Date(s): 02/14/21 - 03/16/21 [facility] [address] [place] [address]- Allergies, Adverse Reactions, Alerts Substance Reaction Severity [...]
--- OUTSIDE RECORDS SUMMARY | 2024-09-08 14:44 | XMS_ITS | Continuity of Care Document ---
Author Organization [facility] Address [address] [place] [address]- Care Team Providers Care Road Mechanic Name Role Phone Salome Parker MD Primary Care Physician Encounter [facility] [place] Date(s): 09/30/20 - 10/30/20 [facility] [address] [place] [id number] Attending Physician: Ramu Dumont Admitting Physician: AdmtrRamu Referring Physician: Admtr, Ar8 Allergies, Adverse Reactions, Alerts Substance Reaction Severity Status codeine wheezing Active Bee Stings Active Zithromax swelling Active Valium violent Active [...] mL, 0 Refills, Maintenance, 09/30/20 11:30:00 EST, [facility][id number], Partial fill [...] mL, 0 Refills, Maintenance, 10/16/20 8:18:00 EST, [facility]/pharmacy #[id number], [place] to fill CoLyte, GoLyte, Gavilyte, [...]
--- OUTSIDE RECORDS SUMMARY | 2024-09-08 14:44 | XMS_ITS | Continuity of Care Document ---
Author Organization [facility] Address [address] [place] [address]- Care Team Providers Care Utility Operator Yarn Name Role Phone Salome Parker MD Primary Care Physician [phone] [place] [facility] [place]21 - 04/30/21 [facility] [address] [place] [address]- Allergies, Adverse Reactions, Alerts Substance Reaction Severity [...] 0 Refills, Maintenance, 04/10/21 14:04:00 EDT, Capsule, [facility]/pharmacy #[id number], Partial fill upon patient request if the prescription is for a schedule II opioid drug., 172, cm, 04/01/21 11:19:00... Start Date: 04/10/21 Stop Date: 04/15/21 Status: Ordered naproxen 500 mg oral tablet See Instructions, TAKE 1 TABLET BY MOUTH TWICE A DAY WITH FOOD, # 60 tablet, 0 Refills, Acute, [id number], 172, cm, 04/01/21 11:19:00 EDT, Height, 100, kg, 03/04/21 16:46:00 EDT, Dry Weight Start Date: 04/09/21 Status: Ordered naproxen 500 mg oral tablet 1 tablet = 500 mg, By Mouth, 2 times a day, with food, # 60 tablet, 0 Refills, Maintenance, 03/18/21 9:19:00 EDT, Tablet, [facility]/pharmacy #[id number], Partial fill upon patient request [...]
--- OUTSIDE RECORDS SUMMARY | 2024-09-08 14:44 | XMS_ITS | Continuity of Care Document ---
Author Organization [facility] Address [address] [place] [address] [place] [address]- Care Team Providers Care Grinder Gear Name Role Phone Not on Staff, PCP Primary Care Physician Unavail able Encounter [facility] Date(s): 04/01/23 - 04/08/23 [facility] [address] [place] [id number] Attending Physician: Kwame Langley MD Referring Physician: Jerald HENAO, Yoshi Duarte Allergies, Adverse Reactions, Alerts Substance Reaction Severity [...] 03/26/23 15:53:00 EDT, Route to Pharmacy Electronically, [facility], Partial fill upon patient [...] By Mouth, Daily, Refill per PCP or Sap Bpc Architect, # 30 tablet, 0 Refills, Maintenance, 03/04/23 10:31:00 EDT, Tablet, [facility], Partial fill upon patient request if the prescription is for a schedule II opioid drug., 1... Start Date: 03/04/23 Status: Ordered Benadryl Extra Strength 2%-0.1% topical cream 1 application, Topically, 3 times a day, # 30 Gm, 1 Refills, Maintenance, 04/07/23 11:41:00 EDT, Cream, [facility]/pharmacy #[id number], Partial fill upon patient request if the prescription is for a schedule II opioid drug., 1 application Topically 3 times a day,... Start Date: 04/07/23 Status: Ordered clopidogrel 75 mg oral tablet 75 mg, 1, tablet, By Mouth, Daily, # 30 tablet, Refills 0, Tot. Refills 0, Maintenance, 03/26/23 15:53:00 EDT, Route to Pharmacy Electronically, [facility], Partial fill upon patient request if the prescription is for a schedule II opioi... Start Date: 03/26/23 Status: Ordered furosemide 20 mg oral tablet 20 mg, 1, tablet, By Mouth, Daily, # 3 tablet, Refills 0, Tot. Refills 0, Maintenance, 03/26/23 15:54:00 EDT, Route to Pharmacy Electronically, [facility], Partial fill upon patient [...] times a day, Refill per PCP or Sap Bpc Architect, # 60 tablet, Refills 0, Tot. Refills 0, Maintenance, 03/26/23 15:53:00 EDT, Route to Pharmacy Electronically, [facility], Partial fill upon patient [...] oldest [Reference Range]: 1 Height 173 cm (04/01/23 3:35 PM) Oxygen Saturation [94-100 %] 98 % (04/01/23 3:35 PM) Pulse Rate [55-90 bpm] 64 bpm (04/01/23 3:35 PM) Blood Pressure [90-138/55-84 mm Hg] 108/ 60mm Hg (04/01/23 3:35 PM) Respiratory Rate [16-30 br/min] 18 br/mi n (04/01/23 3:35 PM) Temperature [96.8-100.4 DegF] 98.0 DegF (04/01/23 3:35 PM) Mode of Delivery (Oxygen) Room air (04/01/23 3:35 PM) Blood pressure sites Arm, left (04/01/23 3:35 PM) Temperature Route Oral (04/01/23 3:35 PM) Social History Social History Type Response Smoking Status 5-9 cigarettes (betw een 1/4 to 1/2 pack)/day in last 30 days; Other: 8-9; entered on: 08/08/20 Sex Cardiac surgery Outpatient Note * Ronda Langley MDh: PERFORM Event Display: Cardiac Surgery Note Office Authored Date: [id number] Patient: ??KATELYNN KANG ? Age:??52 Years?Sex:??Male?:??1970?? CARDIAC SURGERY OFFICE NOTE DATE: ??04/01/23 52 year old male who underwent coronary artery bypass grafting x5 on 03/17/23 by me for coronary artery occlusive disease presents today for a follow up visit with no complaints other than insomnia. Patient has been doing well and pain is much more tolerable than initially after discharge home. Denies fever, pain, erythema, drainage, numbness, or other wound related complications. ? VITAL SIGNS: ??afebrile, blood pressure 108/60 mmHg, heart rate 64 beats per minute, oxygen saturation 98% on room air at rest. ? PHYSICAL EXAMINATION: ? CONST: The patient is alert, oriented and pleasantly conversant. EYES:??Anicteric, nl conjunctivae, EOM intact ENT:??Nl oropharynx NECK:??No evidence of JVD or HJR. Carotid impulses and upstroke normal bilaterally, no carotid bruits?? CV:??Regular rhythm, no??murmur; No aortic pulsation or aortic bruits. RESP:??Normal respiratory effort,??clear to auscultation bilaterally GI:??Soft, non-tender and non-distended??bowels sounds normoactive, no abdominal bruits EXT: no lower extremity edema, no cyanosis SKIN:??No rash, skin warm and dry.?? NEURO:?Alert and oriented x 3, CN 2-12 grossly intact? Surgical Wounds: Chest: The sternum is stable. ??The sternal incision is well approximated without erythema or drainage. ??The chest tube sites are healing well. ??The harvest sites are??well approximated without erythema or drainage. ? A/P: The patient is a 52 year old male s/p CABG x5 on 03/17/23 doing well postoperatively. Pt and family had all questions answered, and overall the patient is doing well following cardiac surgery. ??He was advised to continue to follow up with cardiology and start cardiac rehab soon. Will attempt tramadol for pain / insomnia, can try trazadone later if not improved. He knows to follow up as needed if any wound issues were to come about. He does not require routine cardiac surgical follow up.? Kwame Langley MD [facility]?? [address] [facility], [address] [place] [address] Office: [phone] Patient Care team information Care Team Personnel Name: Fiona Sanchez RN Position: [facility] RN Member Role: Primary Care Nurse Name: Ene Horan RN Position: [facility] RN Supv Member Role: Primary Care Nurse Name: Bienvenido Herrmann RN Position: [facility] RN Member Role: Primary Care Nurse Name: Louisa Hyman RN Position: [facility] RN Supv Member Role: Primary Care Nurse Name: Cynthia Corbin RN Position: [facility] RN Member Role: Primary Care Nurse Name: Yoshi Bernardo RN Position: [facility] SN RN Member Role: Primary Care Nurse Name: Not on Staff, PCP Position: [facility] Physician (General Medicine) Member Role: PCP Name: Alon Castillo RN Position: S RN Member Role: Primary Care Nurse Name: Mercedes Jasmine RN Position: [facility] RN Member Role: Primary Care [...] Related Persons Name: SAM AIKEN Address: home [address] [place] [address] Name: SAM KANG Address: home [address] [place] [address]
--- OUTSIDE RECORDS SUMMARY | 2024-09-08 14:44 | XMS_ITS | Continuity of Care Document ---
Author Organization [facility] Address [address] [place] [address] [place]ne [place] [address]- Care Team Providers Care Marketing Support Specialist Name Role Phone Not on Staff, PCP Primary Care Physician Unavail able Encounter [facility] Date(s): 04/06/23 - 05/06/23 [facility] [address] [place] [id number] Allergies, Adverse Reactions, Alerts Substance [...] 03/26/23 15:53:00 EDT, Route to Pharmacy Electronically, [facility], Partial fill upon patient request [...] By Mouth, Daily, Refill per PCP or Ice Cream Machine Operator, # 30 tablet, 0 Refills, Maintenance, 03/04/23 10:31:00 EDT, Tablet, [facility], Partial fill upon patient request if the prescription is for a schedule II opioid drug., 1... Start Date: 03/04/23 Status: Ordered Benadryl Extra Strength 2%-0.1% topical cream 1 application, Topically, 3 times a day, # 30 Gm, 1 Refills, Maintenance, 04/07/23 11:41:00 EDT, Cream, [facility]/pharmacy #[id number], Partial fill upon patient request if the prescription is for a schedule II opioid drug., 1 application Topically 3 times a day,... Start Date: 04/07/23 Status: Ordered clopidogrel 75 mg oral tablet 75 mg, 1, tablet, By Mouth, Daily, # 30 tablet, Refills 0, Tot. Refills 0, Maintenance, 03/26/23 15:53:00 EDT, Route to Pharmacy Electronically, [facility], Partial fill upon patient request if the prescription is for a schedule II opioi... Start Date: 03/26/23 Status: Ordered furosemide 20 mg oral tablet 20 mg, 1, tablet, By Mouth, Daily, # 3 tablet, Refills 0, Tot. Refills 0, Maintenance, 03/26/23 15:54:00 EDT, Route to Pharmacy Electronically, [facility], Partial fill upon patient request if the prescription is for a schedule II opioid... Start Date: 03/26/23 Stop Date: 03/29/23 Status: Ordered gabapentin 100 mg oral capsule 200 mg, 2, capsule, By Mouth, 3 times a day, # 180 capsule, Refills 0, Tot. Refills 0, Maintenance,04/22/23 16:38:00 EDT, [id number] fill upon patient request [...] times a day, Refill per PCP or Ice Cream Machine Operator, # 60 tablet, Refills 0, Tot. Refills 0, Maintenance, 03/26/23 15:53:00 EDT, Route to Pharmacy Electronically, [facility], Partial fill upon patient request [...] Care Nurse Name: Cynthia Corbin RN Position: [facility] RN Member Role: Primary Care Nurse Name: Yoshi Bernardo RN Position: [facility] SN RN Member Role: Primary Care Nurse Name: Not on Staff, PCP Position: [facility] Physician (General Medicine) Member Role: PCP Name: Alon Castillo RN Position: [facility] RN Member Role: Primary Care Nurse Name: Mercedes Jasmine RN Position: [facility] RN Member Role: Primary Care Nurse Name: Charlene Davenport RN Position: [facility] RN Member Role: Primary Care Nurse Name: Angela Arreguin RN Position: [facility] RN Member Role: Primary Care Nurse Name: Irlanda Hernandez RN Position: [facility] RN Member Role: Primary Care Nurse Care Team Related Persons Name: SAM AIKEN Address: [address] [place] [address] Name: SAM KANG Address: [address] [place] [address]
--- OUTSIDE RECORDS SUMMARY | 2024-09-08 14:44 | XMS_ITS | Continuity of Care Document ---
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 Role Phone Not on Staff, PCP Primary Care Physician Unavail able Encounter [facility] Date(s): 04/12/23 - 04/13/[address] [address]- Encounter Diagnosis Chest pain(Final) - 04/13/23 Musculoskeletal pain(Final) - 04/13/23 Discharge Disposition: A-D/C Home Attending Physician: Jose Apple MD Admitting Physician: Jose Apple MD Referring Physician: Not on Staff, Referring [...] 03/26/23 15:53:00 EDT, Route to Pharmacy Electronically, [facility], Partial fill upon patient request [...] By Mouth, Daily, Refill per PCP or Manager Trainee, # 30 tablet, 0 Refills, Maintenance, 03/04/23 10:31:00 EDT, Tablet, [facility], Partial fill upon patient request if the prescription is for a schedule II opioid drug., 1... Start Date: 03/04/23 Status: Ordered Benadryl Extra Strength 2%-0.1% topical cream 1 application, Topically, 3 times a day, # 30 Gm, 1 Refills, Maintenance, 04/07/23 11:41:00 EDT, Cream, [facility]/pharmacy #[id number], Partial fill upon patient request if the prescription is for a schedule II opioid drug., 1 application Topically 3 times a day,... Start Date: 04/07/23 Status: Ordered clopidogrel 75 mg oral tablet 75 mg, 1, tablet, By Mouth, Daily, # 30 tablet, Refills 0, Tot. Refills 0, Maintenance, 03/26/23 15:53:00 EDT, Route to Pharmacy Electronically, [facility], Partial fill upon patient request if the prescription is for a schedule II opioi... Start Date: 03/26/23 Status: Ordered furosemide 20 mg oral tablet 20 mg, 1, tablet, By Mouth, Daily, # 3 tablet, Refills 0, Tot. Refills 0, Maintenance, 03/26/23 15:54:00 EDT, Route to Pharmacy Electronically, [facility], Partial fill upon patient request if [...] times a day, Refill per PCP or Manager Trainee, # 60 tablet, Refills 0, Tot. Refills 0, Maintenance, 03/26/23 15:53:00 EDT, Route to Pharmacy Electronically, [facility], Partial fill upon patient request [...] Exam Date Time Procedure Performing Provider Status 04/12/23 10:[address] Angio Chest Chantale Jefferson; Auth (Ve rified) Notes: (CT Angio Chest) Reason For Exam: PE suspected, Intermediate prob;Other: RESULT: CT Angio Chest EXAMINATION: CT Angio Chest INDICATION: Hx of Present Illness: pt states midsternal chest pain that radiates to back since lastnight pt had CABG 3 weeks ago follow up with PCP next week. pt states pain increasing worse today. pt denies any SOB no fever or chills; Reason: Other:; PE suspected, Intermediate prob; Clinical Question(s): Pulmonary Embolism; Order Comment: TECHNIQUE: Spiral CTA of the chest was performed after rapid IV contrast administration without cardiac gating, triggered by an MARIO on the main pulmonary artery. Images are formatted in multiple planes using 2-D multiplanar and 3-D maximum intensity projection. 50 cc of Omnipaque 300 was administered intravenously. Weight-based protocol using automatic tube modulation was used to optimize exposure parameters. CTDIvol Body: 4.11 mGy, DLP Body: 355 mGy*cm. COMPARISONS: Chest CT dated 03/03/2023. ANGIOGRAPHIC FINDINGS: No pulmonary embolism to the subsegmental level. Normal caliber pulmonary arteries. No acute aortic abnormality seen on this study performed without cardiac gating. NON-ANGIOGRAPHIC FINDINGS: Laboratory [place] Findings, Lines and Tubes: None. Trachea and Airways: Patent without evidence of tracheal or endobronchial lesion. Lungs and Pleura: Unchanged lung nodules measuring 2 mm or less. Lungs are otherwise clear. No effusion or pneumothorax. Mediastinum and jocelyn: No mass. There is trace amount of residual hematoma in the anterior mediastinum (image 41, series 301). No mediastinal or hilar lymphadenopathy. No esophageal abnormality. Thyroid gland is enlarged. Previously seen nodules in are obscured by streak artifacts. Heart: Heart is normal in size. Small water density pericardial effusion measuring 1 cm in thickness adjacent to the right atrium. Severe coronary artery calcification. Status post CABG. Chest Wall Soft Tissues: Anterior midline incision scar without associated fluid collection. Diaphragm and upper abdomen: No significant abnormality. 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 There is a nonobstructing punctate stone in the left kidney. Bones: No acute abnormality. Status post median sternotomy without evidence of dehiscence. No callus formation. There is a linear free bone fragment along the inner table measuring approximately 2 cmin length (image 31 of series 301 and image 82 of series 601). Partially imaged cervical spine fusion hardware in place. IMPRESSION: 1. No evidence of pulmonary embolism. 2. Small pericardial effusion. 3. Postsurgical changes from recent CABG with trace amount of residual hematoma in the anterior mediastinum. 4. Status post median sternotomy with a free bone fragment along the inner table measuring approximately 2 cm in length. 5. Nonspecific lung nodules measuring 2 mm or less. If low risk for malignancy, no routine follow-up. If high risk, optional CT at 12 months. If unchanged, no further follow-up needed per Guidelines for Management of Incidental Pulmonary Nodules Detected on CT Images: From the Fleischner Society 2017. WSN: [id number] Ordering Physician: Primitivo Hamilton Dictated By: Everardo Sanchez MD Dictated Date/Time: 04/12/23 10:56 p Reviewed By: Everardo Sanchez MD Signed By: Everardo Sanchez MD Signed Date/Time: 04/12/23 10:56 pm Transcribed By: KRIS Transcribed Date/Time: 04/12/23 10:42 pm * Exam Date Time Procedure Performing Provider Status 04/12/23 5:51 PM Chest 2 Views Frontal and Lat Patricia Mckinley; Alayna (Verified) Notes: (Chest 2 Views Frontal and Lat) Reason For Exam: Chest Pain;Other: RESULT: Chest 2 Views Frontal and Lat Chest 2 Views Frontal and Lat Hx of Present Illness: pt states midsternal chest pain that radiates to back since last night pt had CABG 3 weeks ago follow up with PCP next week. pt states pain increasing worse today. pt denies any SOB no fever or chills; Reason: Other:; Chest Pain; Clinical Question(s): Other: COMPARISON: 03/24/2023 FINDINGS: LINES AND TUBES: None. LUNGS AND PLEURA: Clear lungs. Normal pulmonary vascularity. No pleural effusion. No pneumothorax. HEART, MEDIASTINUM AND JOCELYN: Heart is at the upper limits of normal for size. Status post CABG. Normal mediastinal and hilar contour. BONES AND SOFT TISSUES: No acute abnormality. Sternotomy wires. Right humeral head anchor. ACDF. IMPRESSION: No acute abnormality. WSN: [id number] Ordering Physician: Ebony Jorge Dictated By: Yoshi Gaurdado MD Dictated Date/Time: 04/12/23 6:50 pm Reviewed By: Yoshi Guardado MD Signed By: Yoshi Guardado MD Signed Date/Time: 04/12/23 6:50 pm Transcribed By: KRIS Transcribed Date/Time: 04/12/23 6:49 pm Vital Signs Most recent to oldest [Reference Range]: 1 2 3 Oxygen Saturation [94-100 %] 99 % (04/13/23 12:24 AM) 98 % (04/12/23 11:00 PM) 98 % (04/12/23 9:15 PM) Pulse Rate [55-90 bpm] 60 bpm (04/13/23 12:24 AM) 56 bpm (04/12/23 11:00 PM) 60 bpm (04/12/23 9:15 PM) Blood Pressure [90-138/55-84 mm Hg] 137/89mm Hg (04/13/23 12:24 AM) 134/79mm Hg (04/12/23 11:00 PM) 122/73mm Hg (04/12/23 7:32 PM) Respiratory Rate [16-30 br/min] 16 br/min (04/13/23 12:24 AM) 17 br/min (04/12/23 11:00 PM) 16 br/min (04/12/23 9:15 PM) Temperature [96.8-100.4 DegF] 98.1 DegF (04/13/23 12:24 AM) 98.1 DegF (04/12/23 7:32 PM) 97.5 DegF (04/12/23 6:44 PM) Mode of Delivery (Oxygen) Room air (04/13/23 12:24 AM) Room air (04/12/23 11:00 PM) Room air (04/12/23 9:15 PM) Blood pressure sites Arm, left (04/12/23 11:00 PM) Arm, left (04/12/23 7:32 PM) Arm, left (04/12/23 6:44 PM) Temperature Route Oral (04/13/23 12:24 AM) Oral (04/12/23 7:32 PM) Oral (04/12/23 6:44 PM) Social History Social History Type Response Smoking Status 5-9 cigarettes (betw een 1/4 to 1/2 pack)/day in last 30 days; Other: 8-9; entered on: 08/08/20 Sex EKG study * Event Display: EKG Authored Date: Note * Primitivo Hamilton DO: PERFORM Event Display: Patient Education Leaflets Authored Date: [id number] Noncardiac Chest Pain ?? [id number] Noncardiac Chest Pain In most cases, people who come to the emergency room with chest pain don???t have a problem with their heart. Instead, the pain is caused by other conditions. It's important for the healthcare team to be sure you are not having a life-threatening cause for chest pain such as: ??? Heart attack ??? Blood clot in the lungs ??? Collapsed lung ??? Ruptured esophagus ??? Tearing of the aorta Once these major causes have been ruled out, you may have further evaluation for other causes of chest pain. These may be problems with the lungs, muscles, bones, digestive tract, nerves, or mental health. They include: ??? Inflammation around the lungs (pleurisy) ??? Collapsed lung (pneumothorax) ??? Lung inflammation (pleuritis or pneumonitis) ??? Fluid around the lung (pleural effusion) ??? Lung cancer (rare cause of chest pain) ??? Inflamed cartilage between the ribs (costochondritis) ??? Fibromyalgia ??? Rheumatoid arthritis ??? Chest wall strain ??? Reflux ??? Stomach ulcer ??? Spasms of the esophagus ??? Gall stones ??? Gallbladder inflammation ??? Panic or anxiety attacks ??? Emotional distress Your pain doesn???t seem to be coming from your heart. But sometimes the signs of a serious problemtake more time to appear. Continue to watch for the warning signs listed below. Home care Follow these guidelines when caring for yourself at home: ??? Rest today and don't do any strenuousactivity. ??? Take any prescribed medicine as directed. ?? Follow-up care Follow up with your healthcare provider as advised. ?? Call 911 Call 911 if any of these occur: ??? A change in the type of pain: if it feels different, becomes more severe, lasts longer, or begins to spread into your shoulder, arm, neck, jaw or back ??? Shortness of breath or increased pain with breathing ??? Weakness, dizziness, or fainting ??? Rapid heart beat ??? Crushing sensation in your chest ?? When to seek medical advice Call your healthcare provider right away if any of these occur: ??? Cough with dark colored sputum (phlegm) or blood ??? Fever of 100.4??F (38??C) or higher, or as directed by your healthcare provider ??? Swelling, pain or redness in one leg ?? Last Reviewed Date: 2021 ?? [id number] [employer]. All rights reserved. This information is not intended as a substitute for professional medical care. Always follow your healthcare professional's instructions. ?? * Primitivo Hamilton DO: PERFORM Event Display: Patient Education Leaflets Authored Date: [id number] Uncertain Causes of Chest Pain ?? [id number] Uncertain Causes of Chest Pain Chest pain can happen for a number of reasons. Sometimes the cause can't be determined. If your??condition does not seem serious, and your pain does not appear to be coming from your heart, your healthcare provider may recommend watching it closely. Sometimes the signs of a serious problem take more time to appear. Many problems not related to your heart can cause chest pain. These include: ??? Musculoskeletal. Costochondritis is an inflammation of the tissues around the ribs that can occur from trauma or overuse injuries, or a strain of the muscles of the chest wall. ??? Respiratory. Pneumonia, collapsed lung (pneumothorax), or inflammation of the lining of the chest and lungs (pleurisy). ??? Gastrointestinal. Esophageal reflux, heartburn, ulcers, or gallbladder disease. ??? Anxiety and panic disorders ??? Nerve compression and inflammation ??? Rare problems such as aortic aneurysm or aortic dissection (a swelling of the large artery coming out of the heart or a tear in the wall of the artery), or pulmonary embolism (a blood clot in the lungs). Home care After your visit, follow these recommendations: ??? Rest today and avoid strenuous activity. ??? Take any prescribed medicine as directed. ??? Be aware of any recurrent chest pain and notice any changes ?? Follow-up care Follow up with your healthcare provider if you don't start to feel better within 24 hours, or as advised. ?? Call 911 Call 911 if any of these occur: ??? A change in the type of pain: if it feels different, becomes more severe, lasts longer, or begins to spread into your shoulder, arm, neck, jaw or back ??? Shortness of breath or increased pain with breathing ??? Weakness, dizziness, or fainting ??? Rapid heartbeat ??? Crushing sensation in your chest ??? Coughing up more than a small amount of blood. ?? When to seek medical advice Call your healthcare provider right away if any of the following occur: ??? Cough with dark coloredsputum (phlegm) or small amount of blood ??? Fever of 100.4??F??(38??C) or higher, or as directed by your healthcare provider ??? Swelling, pain or redness in one leg ?? Last Reviewed Date: 2021 ?? [id number] [employer]. All rights reserved. This information is not intended as a substitute for professional medical care. Always follow your healthcare professional's instructions. ?? Patient Care team information Care Team Personnel Name: Fiona Sanchez RN Position: [facility] RN Member Role: Primary Care Nurse Name: Ene Horan RN Position: [facility] RN Supv Member Role: Primary Care Nurse Name: Bienvenido Herrmann RN Position: [facility] RN Member Role: Primary Care Nurse Name: Louisa Hyman RN Position: [facility] RN Supv Member Role: Primary Care Nurse Name: Cynthia Corbin RN Position: [facility] RN Member Role: Primary Care Nurse Name: Yoshi Bernardo RN Position: [facility] SN RN Member Role: Primary Care Nurse Name: Not on Staff, PCP Position: [facility] Physician (General Medicine) Member Role: PCP Name: Alon Castillo RN Position: [facility] RN Member Role: Primary Care Nurse Name: Mercedes Jasmine RN Position: [facility] RN Member Role: Primary Care Nurse Name: Charlene Davenport RN Position: [facility] RN Member Role: Primary Care Nurse Name: Angela Arreguin RN Position: [facility] RN Member Role: Primary Care Nurse Name: Irlanda Hernandez RN Position: [facility] RN Member Role: Primary Care Nurse Name: Radha Kessler Position: [facility] RN Member Role: Primary Care Nurse Name: Jose Apple MD Position: [facility] ED Medicine MD Member Role: ED Attending Physician Address: Address: [address] [place] [address]- Name: Primitivo Hamilton DO Position: [facility] Resident Member Role: ED Resident Address: Address: [address] [place] [address] Name: Mercedes Alex RN Position: [facility] ED RN W/OE and Tasks Member Role: Patient Care Provider Care Team Related Persons Name: SAM AIKEN Address: [address] [address] Name: SAM KANG Address: [address] [place] [address]
--- OUTSIDE RECORDS SUMMARY | 2024-09-08 14:44 | XMS_ITS | Continuity of Care Document ---
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 Start Date: 03/26/23 Stop Date: 03/29/23 Status: Ordered hydrOXYzine hydrochloride 10 mg oral tablet 2 tablet = 20 mg, By Mouth, 2 times a day, PRN Anxiety, # 14 tablet, 0 Refills, Acute 04/09/23 21:00:00 EDT, 03/26/23 15:55:00 EDT, Tablet, [facility], Partial fill upon patient requestif the [...] times a day, Refill per PCP or Tool Planner, # 60 tablet, Refills 0, Tot. Refills [...] Care Nurse Name: Louisa Hyman RN Position: [facility] RN Supv Member Role: Primary Care Nurse Name: Cynthia Corbin RN Position: [facility] RN Member Role: Primary Care Nurse Name: Yoshi Bernardo RN Position: [facility] SN RN Member Role: Primary Care Nurse Name: Not on Staff, PCP Position: [facility] Physician (General Medicine) Member Role: PCP Name: Alon Castillo RN Position: [facility] RN Member Role: Primary Care Nurse Name: Mercedes Jasmine RN Position: [facility] RN Member Role: Primary Care Nurse Name: Charlene Davenport RN Position: [facility] RN Member Role: Primary Care Nurse Name: Angela Arreguin RN Position: [facility] RN Member Role: Primary Care Nurse Name: Irlanda Hernandez RN Position: [facility] RN Member Role: Primary Care Nurse Name: Radha Kessler Position: [facility] RN Member Role: Primary Care Nurse Care Team Related Persons Name: SAM AIKEN Address: [address] [place] [address] Name: SAM KANG Address: [address] [place] [address]
--- OUTSIDE RECORDS SUMMARY | 2024-09-08 14:44 | XMS_ITS | Continuity of Care Document ---
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 Role Phone Not on Staff, PCP Primary Care Physician Unavail able Encounter [facility] [place] Date(s): 03/05/23 - 04/10/[address] [address]- Attending Physician: Kwame Langley MD Referring Physician: Yoshi [...] 03/26/23 15:53:00 EDT, Route to Pharmacy Electronically, [facility], Partial fill upon patient [...] By Mouth, Daily, Refill per PCP or Wet Process Miller, # 30 tablet, 0 Refills, Maintenance, 03/04/23 10:31:00 EDT, Tablet, [facility], Partial fill upon patient request if the prescription is for a schedule II opioid drug., 1... Start Date: 03/04/23 Status: Ordered Benadryl Extra Strength 2%-0.1% topical cream 1 application, Topically, 3 times a day, # 30 Gm, 1 Refills, Maintenance, 04/07/23 11:41:00 EDT, Cream, [facility]acy #[id number], Partial fill upon patient request if the prescription is for a schedule II opioid drug., 1 application Topically 3 times a day,... Start Date: 04/07/23 Status: Ordered clopidogrel 75 mg oral tablet 75 mg, 1, tablet, By Mouth, Daily, # 30 tablet, Refills 0, Tot. Refills 0, Maintenance, 03/26/23 15:53:00 EDT, Route to Pharmacy Electronically, [facility], Partial fill upon patient request if the prescription is for a schedule II opioi... Start Date: 03/26/23 Status: Ordered furosemide 20 mg oral tablet 20 mg, 1, tablet, By Mouth, Daily, # 3 tablet, Refills 0, Tot. Refills 0, Maintenance, 03/26/23 15:54:00 EDT, Route to Pharmacy Electronically, [facility], Partial fill upon patient request [...] times a day, Refill per PCP or Wet Process Miller, # 60 tablet, Refills 0, Tot. Refills 0, Maintenance, 03/26/23 15:53:00 EDT, [facility] fill upon patient request if [...] oldest [Reference Range]: 1 Height 173 cm (03/10/23 12:01 PM) Weight 97.2 kg (03/10/23 12:01 PM) Body Mass Index [18.5-24.99 kg/m2] 32.48 kg/m2 *>HHI* (03/10/23 12:01 PM) Dry Weight 97.2 kg (03/10/23 12:01 PM) Weight Obtained Via Patient/family state d (03/10/23 12:01 PM) Dry Weight Obtained Via Patient/family s tated (03/10/23 12:01 PM) Social History Social History Type Response Smoking Status 5-9 cigarettes (betw een 1/4 to 1/2 pack)/day in last 30 days; Other: 8-9; entered on: 08/08/20 Sex Patient Care team information Care Team Personnel Name: Fiona Sanchez RN Position: S RN Member Role: Primary Care Nurse Name: Ene Horan RN Position: [facility] RN Supv Member Role: Primary Care Nurse Name: Bienvenido Herrmann RN Position: [facility] RN Member Role: Primary Care Nurse Name: Louisa Hyman RN Position: [facility] RN Supv Member Role: Primary Care Nurse Name: Cynthia Corbin RN Position: [facility] RN Member Role: Primary Care Nurse Name: Yoshi Bernardo RN Position: [facility] SN RN Member Role: Primary Care Nurse Name: Not on Staff, PCP Position: [facility] Physician (General Medicine) Member Role: PCP Name: Alon Castillo RN Position: [facility] RN Member Role: Primary Care Nurse Name: Mercedes Jasmine RN Position: [facility] RN Member Role: Primary Care Nurse Name: Charlene Davenport RN Position: [facility] RN Member Role: Primary Care Nurse Name: Angela Arreguin RN Position: [facility] RN Member Role: Primary Care Nurse Name: Irlanda Hernandez RN Position: [facility] RN Member Role: Primary Care Nurse Name: Radha Kessler Position: [facility] RN Member Role: Primary Care Nurse Care Team Related Persons Name: SAM AIKEN Address: [address] [place] [address] Name: SAM KANG Address: [address] [place] [address]
--- OUTSIDE RECORDS SUMMARY | 2024-09-08 14:44 | XMS_ITS | Continuity of Care Document ---
Author Organization [facility] Address [address] [place] [address]- Care Team Providers Care Hearing Aide Technician Name Role Phone Salome Parker MD Primary Care Physician Encounter [facility] Date(s): 10/31/20 - 11/30/20 [facility] [address] [place] [id number] Allergies, Adverse Reactions, Alerts Substance Reaction [...]
--- OUTSIDE RECORDS SUMMARY | 2024-09-08 14:44 | XMS_ITS | Continuity of Care Document ---
Author Organization [facility] Address [address] [place] [address]- Care Team Providers Care Defence [employer] Member Other Ranks Name Role Phone Salome Parker MD Primary Care Physician [id number] Date(s): 11/07/19 - 01/22/20 [facility] [address] [place] [address]- [facility] Discharge Disposition: A-D/C Home Attending Physician: [...] Status Health Status Inform ant Paresthesias(Confirmed) Active Vital Signs Most recent to oldest [Reference Range]: 1 Height 169.5 cm (11/22/19 1:14 PM) Weight 98.9 kg (11/22/19 1:14 PM) Oxygen Saturation [94-100 %] 97 % (11/22/19 1:14 PM) Pulse Rate [55-90 bpm] 79 bpm (11/22/19 1:14 PM) Body Mass Index [18.5-24.99] 34.42 *>HHI* (11/22/19 1:14 PM) Blood Pressure [90-138/55-84 mm Hg] 153/ 90mm Hg *H* (11/22/19 1:14 PM) Temperature [96.8-100.4 DegF] 97.6 DegF (11/22/19 1:14 PM) Mode of Delivery (Oxygen) Room air (11/22/19 1:14 PM) Blood pressure sites Arm, left (11/22/19 1:14 PM) Temperature Route Temporal (11/22/19 1:14 PM) Dry Weight 98.9 kg (11/22/19 1:14 PM) Weight Obtained Via Standing scale (11/22/19 1:14 PM) Dry Weight Obtained Via Standing scale (11/22/19 1:14 PM)
== END 2024-09-07 14:00 | disposition home or self-care (01) ==
PROVIDERS: Emergency Provider Emergency Medicine; PCP Internal Medicine
DX: S61.411A Laceration without foreign body of right hand, initial encounter (principal); M79.641 Pain in right hand; W26.8XXA Contact with other sharp object(s), not elsewhere classified, initial encounter; Y93.89 Activity, other specified; Y92.89 Other specified places as the place of occurrence of the external cause; Y99.8 Other external cause status
CPT/HCPCS: 12042; 73110; 73130; 99283; 99284; J2003

== ENCOUNTER 2024-09-08 14:31 | Emergency (ER) | payer OTHER, SELFPAY ==
[2024-09-08 14:47] VITALS: BP 143/87; PULSE 63; RESP 16; TEMP 36.7; O2SAT 96; BMI 34.9
--- NOTE | 2024-09-08 14:49 | ED_ITS ---
HPI - General Adult General Chief complaint: Wound/Laceration Stated complaint: wound check Time Seen by Provider: 09/08/24 14:49 Source: patient, RN notes reviewed and old records reviewed Mode of arrival: ambulatory Limitations: no limitations History of Present Illness ED Provider: Stacey KIRK narrative: 53-year-old male presents for evaluation of a questionable infection to his fingers. The patient was seen in his facility yesterday for a laceration to his 2nd and 3rd fingers of his right hand he had 6 sutures placed to the 3rd finger and skin glue to the 2nd finger He followed up with his primary doctor today who sent him back to the ER for concern of infection the patient reports that his fingers are more swollen, especially the 3rd finger and he has some swelling extending into the right hand Related Data Previous Rx's ?Medication ?Instructions ?Recorded cephalexin 500 mg tablet 500 mg PO QID #28 tabs 09/08/24 doxycycline hyclate 100 mg tablet 100 mg PO BID #14 tabs 09/08/24 Allergies Allergy/AdvReac Type Severity Reaction Status Date / Time azithromycin [From ZITHROMAX] Allergy Unknown RESP Verified 09/08/24 14:49 DISTRESS codeine [CODEINE] Allergy Unknown RESP Verified 09/08/24 14:49 DISTRESS diazepam [From VALIUM] Allergy Unknown SEVERE Verified 09/08/24 14:49 AGITATION bee pollen [bee stings] Allergy Anaphylaxis Verified 09/08/24 14:49 codeine Allergy Unknown Unknown Uncoded 09/07/24 11:01 Review of Systems 2 Constitutional: Constitutional: Denies chills and Denies fever(s) Musculoskeletal: Musculoskeletal: Reports limited range of motion Integumentary/Breasts: Skin/Breast: Denies erythema and Reports wounds Physical Exam ED Vital Signs: Vital Signs - 24 hr 09/08/24 14:47 Temperature 98.1 F Pulse Rate 63 Respiratory Rate 16 Blood Pressure 143/87 H Pulse Oximetry 96 Oxygen Delivery Method Room Air BMI result Body Mass Index 34.9 Const General: healthy appearing, comfortable, no acute distress, alert and awake Nutritional Appearance: well nourished Orientation/consciousness: patient oriented x3 HENMT Head: Yes normocephalic and Yes atraumatic Eyes Eyelids: Yes eyelids normal Conjunctivae: conjunctivae normal Sclerae: sclerae normal Corneas: corneas normal Pupils: Equal, round and reactive pupils present EOM: EOMs intact bilaterally Neck Neck: Yes full ROM Resp Effort & Inspection: normal respiratory effort, able to speak in complete sentences and not labored Skin Other: patient has [address] to the right 3rd finger, skin glue in place to the right 2nd finger. There is minimal serous drainage. No obvious abscess. There is edema to the dorsal surface of the right 3rd finger sitting down to about the right 3rd MCP joint. General skin exam: elasticity normal Neuro General: patient oriented x3 Cranial nerves: Yes Equal, round and reactive pupils present and Yes Bilaterally intact EOM present Cognition (Neuro): normal cognition Medical Decision Making Medical Decision Making MDM Narrative: Patient presents with some minor drainage to the right 3rd finger as well as some edema. This wound was yesterday, I have a very low suspicion for deep infection/osteomyelitis, his x-ray yesterday was unremarkable. We will put the patient on oral antibiotics and he will be referred to Dr. Jo Benson, orthopedic hand surgery. There is no obvious abscess on exam, I do not see any indication to remove the sutures and . Differential Diagnosis Differential Diagnoses: The differential diagnosis associated with the presentation includes Abscess Cellulitis laceration Acute wound Discharge Plan Discharge Clinical Impression: Cellulitis of finger of left hand Patient Disposition: Home, Self-Care Instructions: Cellulitis (ED) Additional Instructions: take both antibiotics as prescribed. Keep the area clean and dry. You may apply topical antibiotics such as bacitracin or Neosporin follow-up with Dr. Jo Benson, hand surgery return for new or worsening symptoms Prescriptions: New cephalexin 500 mg tablet 500 mg PO QID Qty: 28 0RF doxycycline hyclate 100 mg tablet 100 mg PO BID Qty: 14 0RF Referrals: Jo Benson MD [Physician] - (laceration with possible cellulitis) Print Language: Nigerian
== END 2024-09-08 15:02 | disposition home or self-care (01) ==
LOC: HO.ED 14:59
PROVIDERS: Emergency Provider Emergency Medicine; PCP Internal Medicine
DX: L03.012 Cellulitis of left finger (principal)
CPT/HCPCS: 99281

== ENCOUNTER 2024-09-19 12:33 | Outpatient (REF) | payer OTHER, SELFPAY | END 2024-09-19 12:34 | disposition home or self-care (01) | LOC: HO.HOSX 12:33 | PROVIDERS: PCP Internal Medicine; Visit Provider Orthopaedic Surgery | DX: M79.641 Pain in right hand (principal); S61.212A Laceration without foreign body of right middle finger without damage to nail, initial encounter; S61.210A Laceration without foreign body of right index finger without damage to nail, initial encounter; R20.0 Anesthesia of skin; R20.2 Paresthesia of skin; S60.221A Contusion of right hand, initial encounter | CPT/HCPCS: 73130; 99202 ==

== ENCOUNTER 2024-09-19 12:33 | Outpatient (AMB) | payer OTHER, SELFPAY ==
--- NOTE | 2024-09-19 12:47 | MHC.OFFVIS ---
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 Intake Note: Adán is a 53 year old right hand dominant male who presents today as a new patient/ ED follow up. States on 09/07/24 he tightening up a bolt and the wrench slipped off the bolt injuring his right hand. Patient states he brushed his hand against a metal plate causing a laceration to his right index and middle finger. Seen in ED same day where he received sutures in right middle finger, skin glue in place to the right index finger. 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 Reports completing a course of antibiotics that was prescribed at [facility]. He also believes he may have fractured his hand due to a lump on his dorsum aspect of hand. 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 He cut his index & middle fingers on a metal plate while in his garage, DOI: 09/07/24. He was seen in the ED and his wounds were glued & sutured closed. He was seen in the ED again on 09/08/24 with concerns over possible infection. He was placed on PO Abx and referred here. His primary complaint is of pain & swelling over the dorsal aspect of his hand over the 3rd metacarpal. He is concerned about a possible fracture. He says the swelling and tenderness began the day he struck it, he has not struck it since, and it is getting better. He reports numbness in his right median nerve distribution. 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 He says he has had numbness in his hand since. He has reportedly been seeing Dr. Lira for this issue. 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 Review of Systems Const All systems reviewed & are unremarkable except as noted in HPI and below Physical Exam Vital Signs: BMI result Body Mass Index 34.7 Const General: cooperative, healthy appearing and no acute distress Orientation/consciousness: patient oriented x3 HEENT Head: Yes normocephalic and Yes atraumatic Eyes EOM: EOMs intact bilaterally Resp Effort & Inspection: normal respiratory effort and able to speak in complete sentences Cardio Jugular venous distension: no JVD Skin General skin exam: turgor normal Rashes: no rashes Neuro General: patient oriented x3 Extrem Other: Evaluation of Right Upper Extremity: The patient is alert, oriented, and in no acute distress Neuro: Dense numbness in the median nerve distribution. patient reports a median nerve injury during cardiac surgery on 03/17/23. Normal sensation in the ulnar nerve distribution Vascular: Cap refill brisk ROM: Initially he had some stiffness & difficulty bringing his fingers closed to a fist We worked on ROM exercises and before leaving clinic he could bring his fingers closed to a fist and back into full extension and could hold them extended against resistance Skin: There is a sutured oblique laceration to the dorsal aspect of the middle finger, over the DIP joint & middle phalanx. There is a laceration to the dorsal aspect of the index finger, just proximal to the eponycheal fold & distal to the PIP joint, which has been closed with Dermabond Both lacerations are well healed Sutures removed from the middle finger & Steri-strips applies General: No Ecchymosis. There is a focal area of swelling, longitudinally oriented, over the 3rd metacarpal. This is still quite tender Not particularly tender over the 1st or 2nd metacarpals Tender over the 3rd, 4th & 5th metacarpals Radiographs: 3 views of the right hand were taken, viewed, and compared to radiographs from 09/07/24. They show no fractures or dislocations. There is some bony erosion vs cystic changes over the distal radial aspect of the middle finger middle phalanx, this appears more chronic. There is also an wound osteophyte coming off the distal tuft of the distal phalanx of the ring finger. 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 Nerve Conduction Study: IMPRESSION: 1. This is an abnormal study. 2. There is electrodiagnostic evidence for right moderate-severe median neuropathy at the wrist, consistent with carpal tunnel syndrome. 3. There is no electrodiagnostic evidence for ulnar neuropathy, brachial plexopathy, or cervical radiculopathy. Naila Ureña MD, DONI 07/14/23 Psych Appearance: grossly normal Affect: normal affect Attitude: cooperative Assessment & Plan Assessment & Plan (1) Laceration of right middle finger: Code(s): S61.212A - Laceration without foreign body of right middle finger without damage to nail, initial encounter Category: Medical (2) Laceration of right index finger: Code(s): S61.210A - Laceration without foreign body of right index finger without damage to nail, initial encounter Category: Medical (3) Numbness and tingling in right hand: Code(s): R20.0 - Anesthesia of skin; R20.2 - Paresthesia of skin Category: Medical (4) Traumatic hematoma of right hand: Code(s): S60.221A - Contusion of right hand, initial encounter Category: Medical Plan Assessment & Plan: 1. Right middle finger laceration Over the DIP joint & middle phalanx DOI: 09/07/24 2. Right index finger laceration Just proximal to the eopnycheal fold & distal to the PIP joint DOI: 09/07/24 3. Right dorsal hand hematoma Over dorsal aspect of 3rd metacarpal No evidence of fractures Symptoms improving since his injury I educated him about these conditions I discussed operative and non-operative treatment options I recommend activity modification, he will work on gentle ROM exercises at home He is to avoid any dirty activities or any underwater activities for the next week He can wash his hands under running water He should place warm compresses over his hand, beginning next week, to help with re-absorption of the hematoma He can follow up prn 4. Right carpal tunnel syndrome, moderate-severe Patient reports damage to the median nerve distribution during cardiac bypass surgery, when an IV was placed, DOS: 03/17/23 Carpal tunnel sydrome seen on NCS from 07/14/24 This is reportedly being managed by Dr. Lira Please note that greater than 30 minutes was spent with this patient going over the history, evaluating the patient and radiographs, formulating possible treatment options, discussing them with the patient, and documenting the visit. Scribed for Jo Benson MD by Victor Manuel Birch, director biomedical engineering, on 09/19/24 at 1:30 PM, EST. Orders: Orders XR hand RT min 3V Today M79.641 - Pain in right hand Medications: Discontinued cephalexin Discontinued Reason: Patient Completed Course 500 mg PO QID 28 tabs 0RF doxycycline hyclate Discontinued Reason: Patient Completed Course 100 mg PO BID 14 tabs 0RF Coding Level of Care Code New Pt Level 3 (98233) Diagnoses Laceration of right middle finger S61.212A Laceration of right index finger S61.210A Numbness and tingling in right hand R20.0; R20.2 Traumatic hematoma of right hand S60.221A
[2024-09-19 13:01] VITALS: BMI 34.7
== END 2024-09-19 14:07 | disposition home or self-care (01) ==
PROVIDERS: PCP Internal Medicine; Visit Provider Orthopaedic Surgery
DX: S61.212A Laceration without foreign body of right middle finger without damage to nail, initial encounter (principal); S61.210A Laceration without foreign body of right index finger without damage to nail, initial encounter; R20.0 Anesthesia of skin; R20.2 Paresthesia of skin; S60.221A Contusion of right hand, initial encounter
CPT/HCPCS: 99203